=== PATIENT | female | born 1940 | race Caucasian/White ===

== ENCOUNTER 2019-02-26 16:05 | Inpatient (IN) ==
[2019-02-26] MEDS ORDERED: MIDAZOLAM HCL 1 MG/ML 2ML VIAL ONE (16:23)
[2019-02-26] MEDS ORDERED: fentaNYL citrate 100 MCG/2 ML VIAL ONE (16:23)
[2019-02-26] MEDS ORDERED: NITROGLYCERIN/D5W 100MCG/ML 20ML SYR ONE (16:25)
[2019-02-26] MEDS ORDERED: NiCARDipine HCL INJ 2.5 MG/ML 10 ML AMP ONE (16:25)
[2019-02-26] MEDS ORDERED: HEPARIN (PORCINE) 1000 UNIT/ML 10 ML (CATH LAB USE ONLY) ONE (16:25)
--- NOTE | 2019-02-26 17:02 | Emergency Department Note ---
Entered by Anitha Kimble acting as a scribe for Patricio King DO History of Present Illness General Chief complaint: Cardiac Assessment Source: patient and EMS Mode of arrival: EMS Limitations: no limitations History of Present Illness Provider complaint: Cardiac assessment Onset (ago): hour(s) (around 1500 today) Location: upper extremity (arm) and left Radiation: non-radiation Pain Consistency: + other (episode) Current Pain Intensity: 5 Quality: + other (cardiac assessment, pain) Associated symptoms: + nausea/vomiting (positive nausea, negative vomiting); no chest pain, no diaphoresis and no shortness of breath Treatments prior to arrival: aspirin (4 doses) and other (2 doses of sublingual nitroglycerin) The patient is a 70 year old female with a history of diabetes and hypertension who presents to the Emergency Room with complaints of an episode of a cardiac assessment starting today around 1500. Per EMS, the patient began experiencing left arm pain while she was resting, so she called EMS. EMS states that the patient received 4 doses of aspirin and 2 doses of sublingual nitroglycerin and was placed on 4L O2 en route. The patient currently rates her arm pain a 5/10. She also complains of some nausea earlier today, but she denies any shortness of breath, chest pain, diaphoresis, and vomiting. She further denies any recent illnesses. The patient reports no history of MIs, cardiac catheterizations, and stress tests. She notes that she is normally ambulatory and active at baseline. Home Medications Home Medications Medication Instructions Recorded Confirmed Type acetaminophen [Mapap 650 mg PO Q4H #60 tab 11/11/18 Rx (acetaminophen)] apixaban [Eliquis] See Rx Instructions .ROUTE 11/11/18 Rx .COMPLEX #60 tab insulin aspart U-100 [Novolog 1 units SC ACHS #15 ml 11/11/18 Rx Flexpen U-100 Insulin] insulin glargine [Lantus Solostar 0 unit SC BID #10 units 11/11/18 Rx U-100 Insulin] lisinopril [Zestril] 5 mg PO QAM #30 tab 11/11/18 Rx oxycodone 5 mg PO Q8H PRN #20 cap 11/11/18 Rx Allergies Allergy/AdvReac Type Severity Reaction Status Date / Time Penicillins Allergy Unknown Unverified 11/05/18 14:59 Past Med/Surg History Medical History Diabetes (Chronic) Hypertension (Chronic) Family History Other Family history non-contributory Social History Preferred Language: Lithuanian Communication Ability: Effective General Expeditor Required: No Beliefs That Will Affect Care: None marital status: Current Living Situation: Spouse Other Information That Helps Us Care for You: No Feels Safe at Home: Yes Safety Concerns: Feels Safe At This Time Smoking Status: Former smoker Second Hand Exposure: No Hx Alcohol Use: No Hx Substance Use: No Review of Systems See HPI for pertinent positives & negatives. and A total of 10 systems reviewed and were otherwise negative Physical Exam Vital Signs Vital Signs - 24 hr 02/26/19 16:15 02/26/19 17:40 02/26/19 17:45 Temperature 37.3 C 36.3 C L Temperature Source Oral Sepsis Recent Fever Within 48 Hours No Sepsis Action Taken by Nursing No Action Required Pulse Rate 118 H 103 H 54 L Pulse Rate [Right Radial] Pulse Rate from SpO2 Sensor 103 H 98 H Pulse Strength [Right Radial] Respiratory Rate 20 16 12 Respiratory Effort / Characteristics Non-Labored Respiratory Depth Normal Respiratory Pattern Blood Pressure 141/107 H 128/87 Blood Pressure [Left Arm] Blood Pressure Mean 118 100 Blood Pressure Mean [Left Arm] Blood Pressure Position [Left Arm] Pulse Oximetry 93 93 95 Oxygen Delivery Method Room Air 02/26/19 17:47 02/26/19 17:57 02/26/19 17:59 Temperature 36.3 C L Temperature Source Oral Sepsis Recent Fever Within 48 Hours Sepsis Action Taken by Nursing Pulse Rate 107 H Pulse Rate [Right Radial] 101 H Pulse Rate from SpO2 Sensor 102 H Pulse Strength [Right Radial] Normal Respiratory Rate 14 14 Respiratory Effort / Characteristics Non-Labored Spontaneous Non-Labored Spontaneous Respiratory Depth Normal Normal Respiratory Pattern Regular Regular Blood Pressure 122/87 Blood Pressure [Left Arm] 128/87 Blood Pressure Mean 98 Blood Pressure Mean [Left Arm] 100 Blood Pressure Position [Left Arm] Lying Pulse Oximetry 94 92 Oxygen Delivery Method Room Air 02/26/19 18:00 02/26/19 18:04 Temperature Temperature Source Sepsis Recent Fever Within 48 Hours Sepsis Action Taken by Nursing Pulse Rate 102 H Pulse Rate [Right Radial] Pulse Rate from SpO2 Sensor 102 H Pulse Strength [Right Radial] Respiratory Rate 18 Respiratory Effort / Characteristics Respiratory Depth Respiratory Pattern Blood Pressure 128/85 Blood Pressure [Left Arm] Blood Pressure Mean 99 Blood Pressure Mean [Left Arm] Blood Pressure Position [Left Arm] Pulse Oximetry 94 Oxygen Delivery Method Room Air CONSTITUTIONAL/VITAL SIGNS: Reviewed / noted above. GENERAL: Non-toxic in appearance. INTEGUMENTARY: Warm, dry, and [place]. HEAD: Normocephalic. EYES: without scleral icterus or trauma. ENT/OROPHARYNX: clear and moist. LYMPHADENOPATHY/NECK: Is supple without lymphadenopathy or meningismus. RESPIRATORY: Lungs clear and equal. CARDIOVASCULAR: Regular rate and rhythm. GI/ABDOMEN: Soft and nontender. No organomegaly or pulsatile mass. No rebound or guarding. Normal bowel sounds. EXTREMITIES: Warm and well perfused. BACK: No CVA tenderness. NEUROLOGICAL: Intact without focal deficits. PSYCHIATRIC: normal affect. MUSCULOSKELETAL: Normally developed with good muscle tone. Course 1609: The patient was evaluated in room A11B, and a complete history and physical examination were performed. 1620: The patient was taken to the cardiac catheterization technologist at this time. I reviewed the patient's case with Dr. Bearden - Cardiology, [facility]. Dr. Bearden will evaluate the patient for further management. Consultations Consultation #1: I reviewed the patient's case with Dr. Bearden - Cardiology, [facility]. Dr. Bearden will evaluate the patient for further management. Time: 16:20 Administered Medications Discontinued Medications Clopidogrel Bisulfate (Plavix) Confirm Administered Dose 600 mg .ROUTE .STK-MED ONE Stop: 02/26/19 17:10 Last Admin: 02/26/19 17:14 Dose: 600 mg Documented by: [id number] Fentanyl Citrate (Fentanyl Citrate) Confirm Administered Dose 100 mcg .ROUTE .STK-MED ONE Stop: 02/26/19 16:24 Last Increment: 02/26/19 17:13 Dose: 25 mcg Documented by: [id number] Heparin Sodium (Porcine) (Heparin Iv Bolus ([facility] Use Only)) Confirm Administered Dose 10,000 units .ROUTE .STK-MED ONE Stop: 02/26/19 16:26 Last Admin: 02/26/19 17:13 Dose: 10,000 units Documented by: [id number] Midazolam HCl (Versed) Confirm Administered Dose 2 mg .ROUTE .STK-MED ONE Stop: 02/26/19 16:24 Last Increment: 02/26/19 17:13 Dose: 1 mg Documented by: [id number] Nicardipine HCl (Cardene) Confirm Administered Dose 25 mg .ROUTE .STK-MED ONE Stop: 02/26/19 16:26 Last Admin: 02/26/19 16:54 Dose: 25 mg Documented by: [id number] Nitroglycerin/Dextrose (Nitroglycerin/D5w 100 Mcg/Ml 20ml Syringe) Confirm Administered Dose 2,000 mcg .ROUTE .STK-MED ONE Stop: 02/26/19 16:26 Last Admin: 02/26/19 16:54 Dose: 2,000 mcg Documented by: [id number] Medical Decision Making Differential Diagnosis Differential diagnosis: Etiologies such as cardiac ischemia, aortic dissection, pulmonary embolism, pneumonia, pneumothorax, musculoskeletal, infections, pericarditis, myocarditis, esophageal rupture, gastrointestinal, as well as others were entertained. Medical Records Attestation: I reviewed the patient's medical records. Home Medications Current Medication List: was personally reviewed by me Laboratory Data Result diagrams: 02/26/19 15:38 02/26/19 15:38 Lab Results 02/26/19 Range/Units 15:38 WBC 9.91 (4.8-10.8) K/uL RBC 5.06 (4.2-5.4) M/uL Hgb 15.1 (12.0-16.0) g/dL Hct 43.2 (37-47) % MCV 85.4 (80-100) fL MCH 29.8 (25-34) pg MCHC 35.0 (32-36) g/dL RDW Std Deviation 40.6 (36.4-46.3) fL RDW Coeff of Parviz 13.2 (11.5-14.5) % Plt Count 275 (130-400) K/uL MPV 9.8 (7.4-10.4) fL Neutrophils % (Manual) 36.8 % Lymphocytes % (Manual) 42.2 % Reactive Lymphs % (Man) 14.9 % Monocytes % (Manual) 3.5 % Eosinophils % (Manual) 2.6 % Neutrophils # (Manual) 3.65 (1.4-6.5) K/uL Total Absolute Neuts 3.65 (1.4-6.5) K/uL Lymphocytes # (Manual) 4.18 H (1.2-3.4) K/uL Reactive Lymphs # 1.48 K/uL Total Abs Lymphocytes 5.66 H (1.2-3.4) K/uL Monocytes # (Manual) 0.35 (0.11-0.59) K/uL Eosinophils # (Manual) 0.26 (0-0.5) K/uL ECG Data Attestation: I personally reviewed and interpreted this ECG as follows: Indication: other (cardiac assessment) Rate (beats per minute): 114 Rhythm: sinus tachycardia Findings: + PVC and + ST elevation (anterior leads) Blood Pressure Blood Pressure Findings: Elevated blood pressure Blood Pressure Disposition: further management by hospitalist MDM Narrative This is a 78-year-old female who presents to the ED with a chief complaint of left arm pain. The patient states that started about 2 hours prior to arrival. EMS contacted us about 25 minutes from the hospital and gave us the report. The patient's EKG prehospital reveals what appears to be an anterior ST elevation SC. Code heart alert was called prior to the patient's arrival. Aerospace Stress Engineer, Dr. Bearden was present on the patient's arrival. The patient has a repeat twelve-lead EKG here showing acute ST elevation anterior wall SC. The patient was given aspirin and nitro prehospital. She was taken to the [facility]. She was stable during her stay. Her exam was unremarkable. Impression & Plan Acute anterior wall SC Discharge Plan Visit Data *Final* Discharge Date/Time: 02/26/19 16:21 Chief Complaint: Cardiac Assessment ED Provider: Patricio King Discharge Problem: Acute anterior wall SC Patient Disposition: Admitted As Inpatient Discharge Instructions Interventions: ED Discharge Assessment Last Done: 02/26/19 16:21 The scribe's documentation has been prepared under my direction and personally reviewed by me in its entirety. I confirm that the note above accurately reflects all work, treatment, procedures, and medical decision making performed by me.
[2019-02-26] MEDS ORDERED: CLOPIDOGREL BISULFATE 300 MG TAB ONE (17:09)
[2019-02-26 17:15] LABS: Hematocrit (blood only) 43.2 % (37-47); Hemoglobin 15.1 g/dL (12.0-16.0); Mean Corpuscular Volume 85.4 fL (80-100); Mean Platelet Volume 9.8 fL (7.4-10.4); Platelet Count 275 K/uL (130-400); RDW Coefficient of Variation 13.2 % (11.5-14.5); RDW Standard Deviation 40.6 fL (36.4-46.3); Red Blood Count 5.06 M/uL (4.2-5.4); White Blood Count 9.91 K/uL (4.8-10.8)
[2019-02-26] MEDS ORDERED: ICU PROTOCOL FOR HYPERGLYCEMIA PRN (17:21)
[2019-02-26] MEDS ORDERED: ONDANSETRON INJ 2 MG/ML 2 ML VIAL IV PRN (17:23)
[2019-02-26] MEDS ORDERED: ACETAMINOPHEN 325 MG TAB PO PRN (17:23)
--- NOTE | 2019-02-26 17:33 | Cardiology Consultation ---
Date of Consultation February 26, 2019 Assessment & Plan (1) ACS (acute coronary syndrome): Presentation concerning for acute OR and recommend proceeding with emergent cardiac catheterization and likely primary PCI. No apparent contraindications to procedure. Discussed risks, benefits, alternatives of procedure with patient and they are willing to proceed. Given aspirin, nitro glycerin in route. Further recommendations pending findings of coronary angiography. History of Present Illness Attending Physician: Brigido Bearden MD History of Present Illness Ms. 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 EKG obtained in route concerning for an acute OR and a heart alert activated from the field. Upon arrival she endorsed 5 out of 10 new arm pain which occurred at rest. Repeat EKG confirmed anterolateral ST elevations and was taken emergently to cardiac catheterization lab. Allergies Allergy/AdvReac Type Severity Reaction Status Date / Time Penicillins Allergy Unknown Unverified 11/05/18 14:59 Home Medications Home Medications Medication Instructions Recorded Confirmed Type acetaminophen [Mapap 650 mg PO Q4H #60 tab 11/11/18 Rx (acetaminophen)] apixaban [Eliquis] See Rx Instructions .ROUTE 11/11/18 Rx .COMPLEX #60 tab insulin aspart U-100 [Novolog 1 units SC ACHS #15 ml 11/11/18 Rx Flexpen U-100 Insulin] insulin glargine [Lantus Solostar 0 unit SC BID #10 units 11/11/18 Rx U-100 Insulin] lisinopril [Zestril] 5 mg PO QAM #30 tab 11/11/18 Rx oxycodone 5 mg PO Q8H PRN #20 cap 11/11/18 Rx Patient History Medical History Diabetes (Chronic) Hypertension (Chronic) Family History Other Family history non-contributory Social History Preferred Language: Belarusian Communication Ability: Effective Beliefs That Will Affect Care: Yazidi Yazidi Beliefs: Adventist marital status: Current Living Situation: Spouse Feels Safe at Home: Yes Smoking Status: Never smoker Second Hand Exposure: No Hx Alcohol Use: No Hx Substance Use: No Review of Systems Review of Systems: All systems reviewed & are unremarkable except as noted in HPI & below Physical Exam Physical Exam: General: Comfortable, no acute distress Eyes: Sclerae anicteric, extraocular movements intact Lungs: Clear to auscultation bilaterally, no rhonchi or wheezes Cardiac: Regular, tachycardic no murmurs, rubs or gallops. Vascular: 2+ radial, DP and PT pulses. Abdomen: Soft, nontender, nondistended, positive bowel sounds. Extremities: Well perfused, no peripheral edema Skin: No rashes or lesions. Neuro: Nonfocal Psych: Alert orient x3, normal affect and mood Results & Data Vital Signs (Past 12 Hours) Vital Signs Temp Pulse Resp BP Pulse Ox 02/26/19 16:15 37.3 C 118 H 20 141/107 H 93
--- NOTE | 2019-02-26 17:34 | Post Anesthesia Assessment ---
Date of Service February 26, 2019 Post Sedation Assessment Vital Signs Temp Pulse Resp BP Pulse Ox 02/26/19 16:15 37.3 C 118 H 20 141/107 H 93 Recovery Score Activity: Moves 4 extremities Respiration: Deep Breath/Cough Circulation: +/-20% PreAnes Value Consciousness: Fully Awake Oxygen Saturation: O2 needed for >90% Discharge Sedation Level of Care: Fast Track Phase II Post Sedation Plan On clinical assessment, the patient appears to have tolerated the sedation without complications. Patient is recovering as anticipated. Patient will continue to be monitored by nursing and may be discharged when sedation discharge criteria are met per below protocol. Upon Completions of procedure and additional 15 minutes continue every 5 minute vital signs and the P.A.R. score; then discharge to a Phase I or Fast Track to Phase II per the following guidelines: * Discharge Patient to appropriate Phase II area if PAR is 8 or greater or return to pre- procedure baseline. The post - procedure orders will be as directed. * If PAR score is less than 8 or not return to pre-procedure baseline then patient will follow Phase I monitoring till PAR is reached for Phase II. The Phase I may be done in procedure room or may call to secure a Phase I area. * If naloxone or flumazenil are used for reversal, hold in Phase I for continued monitoring from when last reversal dose was given for a minimum of 60 minutes or longer pending the nurse and/or physician discretion of patient condition before discharge to Phase II. Please call the Sedation Physician to re-evaluate and complete post-note for discharge to Phase II area. Do NOT discharge from procedure sedation or Phase 1 until post- sedation evaluation note is complete by procedure /sedation MD Sedation Discharge Instructions to be given to the patient at discharge to home.
--- NOTE | 2019-02-26 17:34 | Pre Anesthesia Assessment ---
Date of Service February 26, 2019 Pre Sedation Assessment Vital Signs Temp Pulse Resp BP Pulse Ox 02/26/19 16:15 37.3 C 118 H 20 141/107 H 93 Cardiovascular RRR, no murmur, no edema Respiratory normal respiratory effort, lungs clear to auscultation Pre-Sedation Airway Assessment Smoking Status: Never smoker Hx Sleep Apnea: No Hx Difficult Intubation: No Short, Thick Neck: No Thyromental Distance: > or= 3.5 Finger Breadths Oral Cavity: + WNL Mallampati Class: III Procedure Planning Contraindications for Sedation: none Current Medications Reviewed: Yes Notes The planned sedation has been discussed with the patient. Informed Consent was obtained. I have identified the patient, determined the appropriateness of sedation and have assessed the patient immediately prior to the procedure. All medicine(s) and interventions are by my order.
--- NOTE | 2019-02-26 17:37 | Cardiac Catheterization ---
Cardiac Cath Procedure Full Procedure Date February 26, 2019 Pre-Procedure Diagnosis Pre-Procedure Diagnosis: Acute Coronary Syndrome AUC Score AUC Score: 9 Post-Procedure Diagnosis Post-Procedure Diagnosis: Severe CAD, Successful PCI and Normal Intracardiac Pressures Procedure(s) Performed Procedure(s) Performed: Coronary Angiography, Left Heart Cath, PTCA and Drug Eluting Stent Community Resource Officer Brigido Bearden MD Display Designer(s) Bernadette Estimated Blood Loss Estimated Blood Loss: 10 Medication(s) Medication(s): Clopidogrel, Fentanyl, Heparin, Lidocaine 1%, Nicardipine, Nitroglycerin and Versed Summary of Findings Indication: STEMI/Heart Alert Access: 6 Fr right radial artery Catheters: [place], EBU 3.0 guide Findings: LM -moderate caliber, luminal irregularities LAD -small caliber vessel, diffuse 40% proximal, 95% acute appearing mid segment stenosis with ANTONIO II flow distally. Distal LAD small with diffuse disease and with multiple severe focal areas (90+%) before wraps around apex. Moderate caliber first diagonal with mild diffuse disease. Circumflex -moderate caliber, 40% proximal stenosis, 30 to 40% mid segment stenosis, luminal irregularities in large bifurcating OM 2 RCA -dominant, moderate caliber, 40 to 50% ostial stenosis, distal luminal irregularities LVEDP -14 -- PCI -- Antithrombotic therapy: Heparin, clopidogrel Procedure: Left main cannulated with EBU 3.0 guide Supervisor [employer] 50 wire passed across lesion into distal vessel Mid LAD lesion predilated with 2.0 compliant balloon. Distal LAD gently dilated with 2.0 balloon Dilated lesion stented with 2.5 x 26 mm Nash drug-eluting stent Stent post-dilated with 2.5 noncompliant balloon IC vasodilators administered for spasm Post procedure ANTONIO 3 flow, stent well expanded with minimal residual stenosis. Most apical portion of LAD occluded but vessel very small and no further intervention undertaken. Arterial Closure: TR band Summary: 1. Anterior STEMI/95% mid LAD stenosis 2. Mild to moderate non-culprit coronary artery disease 40% ostial RCA 30-40% proximal, mid circumflex disease 3. Normal intracardiac filling pressure 4. Successful PCI of mid LAD with single drug-eluting stent (2.5 x 26 m Nash). Recommendations: Admit to ICU for continued monitoring Loaded with clopidogrel 600 mg in label fuser tender Unclear if still taking anticoagulation for pulmonary embolism. If still requires anticoagulation would continue aspirin, clopidogrel and Eliquis for 1 week and then drop aspirin and continue Eliquis/clopidogrel for 1 year If does not require anticoagulation continue doing to platelet therapy with aspirin, clopidogrel for 1 year Trend troponins until peak, Check Echo Uptitrate beta-mya/MANI as BP allows High-dose statin Consult cardiac Rehab Hemodynamics Rest Ao:: 121/75/96 Final Ao: 115//91 LV: 113// Recommendations Recommendations: PCI without planned CABG Specimens Specimens: None Radiation Exposure (mGy) 2052 Contrast (mls) 120 Fluids (cc crystalloids) Fluids (cc crystalloids): 80 Drains Drains: none Anesthesia moderate Procedural Complication(s) None Disposition ICU ACC Data: Cash Applications Clerk Cardiac Status Clinical evaluation leading to the procedure CAD Presenation: STEMI Anginal Classification: CCS IV Heart Failure: No Cardiogenic Shock within 24 Hours: No Cardiac Arrest within 24 Hours: No Imaging Studies Past 6 Months: Yes Stress Studies Past 6 Months: No Diagnostic Physicians Name: Brigido Bearden MD Status: Emergency Closure Device Percutaneous Entry Location: Radial Closure Device: Radial Band Recommendations: PCI without planned CABG PCI Indication: Immediate PCI for STEMI First Noted: First EKG Lesion Segment Name: mid LAD Culprit Artery: Yes Stenosis Prior to Rx (%): 95 Chronic Total Occlusion: No IVUS: No FFR: No Pre-Procedure ANTONIO Flow: 2 Previously Treated Lesion: No Lesion Complexity: Non-High/Non-C Lesion Length (mm): 23 Thrombus Present: Yes Bifurcation Lesion: No Guidewire Across Lesion: Stenosis Post-Procedure (%): 0 Post-Procedure ANTONIO Flow: 3 Devices(s) Deployed: Yes Yes Intraprocedure Events Significant Disection: No Perforation: No
[2019-02-26 18:10] LABS: ALC (manual) 5.66 K/uL (1.2-3.4); Eosinophils # (manual) 0.26 K/uL (0-0.5); Eosinophils % (manual) 2.6 %; Lymphocytes # (manual) 4.18 K/uL (1.2-3.4); Lymphocytes % (manual) 42.2 %; Monocytes # (manual) 0.35 K/uL (0.11-0.59); Monocytes % (manual) 3.5 %; Neutrophils % (manual) 36.8 %; Reactive Lymphocytes # (manual) 1.48 K/uL
[2019-02-26 18:14] LABS: Albumin Globulin Ratio 0.9 (0.9-2); Albumin Level 3.7 gm/dl (3.4-5.0); BUN Creatinine Ratio 12.5 (10-20); Bilirubin,Total 0.9 mg/dl (0.2-1); Calcium 9.7 mg/dl (8.5-10.1); Creatinine Clr Calc Pharmacy 53.6 ml/min; Est GFR (African American) 80.6; Est GFR (Non-African American) 69.6; Globulin 4.3 gm/dl (2.5-4.0); Potassium 4.2 mmol/L (3.5-5.1); Troponin I 0.215 ng/ml (0-0.045)
[2019-02-26] MEDS ORDERED: SODIUM CHLORIDE 0.9% 1000ML 1,000 ML IV SCH (18:15)
--- NOTE | 2019-02-26 18:15 | XRay Report ---
XR chest 1V portable CLINICAL HISTORY: Chest Pain dyspnea COMPARISON STUDY: 11/05/2018 FINDINGS: Diminished inspiratory volumes. Crowding of the basilar lung markings. Nipple lungs are stephani ar. IMPRESSION: No acute process. The above report was generated using voice recognition software. It may contain grammatical, syntax or spelling errors. Electronically signed by: Aly Martinez M.D. 02/26/2019 6:13 PM
[2019-02-26 18:25] LABS: Beta-Hydroxybutyrate 2.97 mg/dl (0.2-2.81)
--- NOTE | 2019-02-26 18:49 | Critical Care Consultation ---
Date of Consultation February 26, 2019 Assessment & Plan (1) ACS (acute coronary syndrome): Reason Critically Ill: Heike Khalil is a 78-year-old female with past medical history of uncontrolled insulin dependent diabetes and hypertension presented to the ED for arm pain with top+ and ECG revealing for STEMI now s/p PCI with KALA x1 to LAD. Neuro - CAM ICU: Negative Sedation: None Analgesia: Acetaminophen 650 mg p.o. every 4 hours as needed Cardiac - STEMI secondary to 95% LAD occlusion S/P KALA to mid LAD 40% ostial RCA and 30 to 40% proximal mid circumflex disease also noted with normal filling pressures. Per Dr. Bearden she was also noted to have some small vessel distal disease consistent with diabetes, and may have some additional chest pain in the immediate period after the procedure but overall did well without complication. Cardiac monitoring overnight Trend troponins overnight Echocardiogram in the morning Dual antiplatelet therapy, aspirin and Plavix 75 mg Respiratory - Stable, no respiratory disease. Satting well on room air GI - Heart healthy, diabetic diet RENAL/LYTES - No significant electrolyte derangements See glucose management as below No signs of acute kidney injury, creatinine 0.81 - No concerns at this time ENDO - Type 2 diabetes mellitus, glucose 144-410 over admit, poorly controlled last A1c 14.1 Insulin-dependent at home. On glargine 40+ aspart 6 units with meals at home. Relatively noncompliant per family. Insulin GTT tonight Resume lisinopril tomorrow, blood pressure control adequate HEME - Stable hemoglobin, no clinical signs of bleeding ID - No signs of infection at this time INTEGUMENTARY - No skin concerns, routine ulcer prophylaxis LINES/IV ACCESS - PIVs intact. DVT PROPHYLAXIS - SCDs Heparin 5000u SQ Q8H Thank you for allowing us to be part of this patient's care. Please refer to Dr. Hoang's documentation for any further recommendations. Supervising Physician Co-Signing Physician Notes Dr. Jack was resident physician during care of patient. I separately evaluated patient for plaza portions of the history and the exam. I was present during the critical portion of medical decision making, and I discussed the case with the resident. I generally agree with the findings and plan. Status post cardiac cath with drug-eluting stent to LAD. Patient with extremely poorly controlled diabetes requiring insulin infusion. I have personally spent 35 minutes of critical care time in the direct management of this patient. This is a life/limb threatening event. This includes time spent evaluating patient, direct bedside care, chart review, placing orders, interpretation of diagnostic studies, discussion with consultants, patient, and/or family members regarding treatment decisions, as well as other required patient management activities. This time is exclusive of all separately billable procedures, and teaching time and separate from and in addition to any other critical care service time. History of Present Illness Reason for Consultation: with left arm pain, nausea at rest without chest pain or shortness of breath. Her chest pain had begun early in the afternoon, she received aspirin and nitroglycerin by EMS and was transported to [facility] for care. She had no prior history of acute coronary syndrome, has not had cardiac intervention before, and is not limited by any cardiac problems. She has not had any chest pain at rest or crescendo angina in the past. In the emergency department her troponin was elevated to 0.[address] elevation in V2, V3, V4, V5. She was taken to the [facility] Out Techn[facility] and was found to have a 95% occlusion of her mid LAD which was treated with a single drug-eluting stent. She has been admitted to the ICU for monitoring. Discussed her case with her grandchildren. Per her family she lives at home and [place] with her . She gets around well, has not had any falls, and they would prefer for her to return there. They do have faculty getting her to take her medications, and will occasionally tell them "I will take my meds when I damn well please "but otherwise is functional, has no problems with ambulation, and is able to complete her ADLs. Attending Physician: Saurabh Lazo MD Allergies Allergy/AdvReac Type Severity Reaction Status Date / Time Penicillins Allergy Unknown Unverified 11/05/18 14:59 Home Medications Home Medications Medication Instructions Recorded Confirmed Type acetaminophen [Mapap 650 mg PO Q4H #60 tab 11/11/18 Rx (acetaminophen)] apixaban [Eliquis] See Rx Instructions .ROUTE 11/11/18 Rx .COMPLEX #60 tab insulin aspart U-100 [Novolog 1 units SC ACHS #15 ml 11/11/18 Rx Flexpen U-100 Insulin] insulin glargine [Lantus Solostar 0 unit SC BID #10 units 11/11/18 Rx U-100 Insulin] lisinopril [Zestril] 5 mg PO QAM #30 tab 11/11/18 Rx oxycodone 5 mg PO Q8H PRN #20 cap 11/11/18 Rx Patient History Medical History Diabetes (Chronic) Hypertension (Chronic) Family History Other Family history non-contributory Social History Preferred Language: Amharic Communication Ability: Effective Lab Associate Required: No Beliefs That Will Affect Care: None marital status: Current Living Situation: Spouse Other Information That Helps Us Care for You: No Feels Safe at Home: Yes Safety Concerns: Feels Safe At This Time Smoking Status: Former smoker Second Hand Exposure: No Hx Alcohol Use: No Hx Substance Use: No Physical Exam Physical Exam: General: Alert, oriented to name. Oriented to place. Not oriented to year off by +1. Not oriented to month off by -1. NAD. Cooperative. Answers questions appropriately Skin: Dry skin on legs bilaterally, no pitting edema present. Air compression band present on right wrist, no signs of bleeding. Capillary refill in fingertips less than 2 seconds. HEENT: Atraumatic, normocephalic. Pulm: CTAB A&P. -wheezes, -rales, -rhonchi. Symmetrical chest rise. No increase work of breathing. No respiratory distress. Cardiac: RRR, -mrg. Radial pulses intact and symmetrical. Abdominal: Nontender, nondistended, soft. BS present. Results & Data Vital Signs (Past 12 Hours) Vital Signs Temp Pulse Pulse Resp BP BP Pulse Ox 02/26/19 18:15 100 H 14 113/76 93 02/26/19 18:10 36.4 C L 98 H 16 113/76 94 02/26/19 18:00 102 H 18 128/85 94 02/26/19 17:57 107 H 14 122/87 92 02/26/19 17:47 36.3 C L 101 H 14 128/87 94 02/26/19 17:45 54 L 12 95 02/26/19 17:40 36.3 C L 103 H 16 128/87 93 02/26/19 16:15 37.3 C 118 H 20 141/107 H 93 Resident Activity Tracking Resident Involvement: Resident Care Provided Care Provided: Adult [facility] Medicine
[2019-02-26] MEDS ORDERED: INSULIN PROTOCOL GOAL RANGE ONE (19:11)
[2019-02-26] MEDS ORDERED: SODIUM CHLORIDE 0.65% NA SOLN 45 ML (OCEAN) ONE (19:11)
--- NOTE | 2019-02-26 19:40 | History & Physical Report ---
Date of Service February 26, 2019 Assessment & Plan (1) ACS (acute coronary syndrome): 78-year-old female was admitted on 26 Feb 2019 for left arm pain, acute KS, and emergent cath. Anterior STEMI, CAD: Left arm pain and nausea earlier in the day. Never had chest pain. Elevated troponin and diffuse ST elevations on EKG led to an emergent cardiac cath with single KALA to mid-LAD on 09May. Cardiology plan is to continue Eliquis and Plavix, trend troponins, check echocardiogram in a.m., uptitrate beta-mya and MANI inhibitor as blood pressure allows, placed on high-dose statin (Lipitor), and start cardiac rehab. 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 Ongoing medical history: - Hypertension: Managements as per CAD discussion above. - Diabetes: In October 2018 HbA1c was 13.1. --- On insulin glargine and sliding scale insulin. Recheck A1c and lipids in AM. Diabetes education. - Chronic PE: Seen on October 2018 admit. - Compression fracture of thoracic vertebrae: Previous recommendation of Ortho follow-up. - Incidental adrenal adenoma. Code status: Full code. Diet: DM2 diet. DVT prophy: Heparin. PT/OT: Cardiac rehab. Disbo: Admitted to ICU. --- Son asks if case management can help him get a home health nurse for her. He says she has had such help in the past. (2) Acute anterior wall KS: (3) Hypertension: (4) Diabetes: (5) Pulmonary embolism: (6) Compression fracture of thoracic vertebra: (7) Incidental adrenal cortical adenoma: History of Present Illness Primary Care Provider: Ben Paula DO 78-year-old female presented to the emergency department by EMS for left arm pain and nausea earlier on day of admission. She denied concurrent chest pain, diaphoresis, or vomiting. They contacted EMS, at which point she received nitroglycerin and aspirin. Her EKG was consistent with a STEMI and she went for emergent cath. On discussion with patient and her son this evening in the ICU, she says she is resting comfortably and eat a bit of her dinner. She denies any present complaints to include any chest pain, shortness of breath, nausea, wrist pain, or other acute concerns. --- Past medical history includes hypertension, uncontrolled diabetes, chronic PE, compression fracture of the thoracic vertebrae, incidental adrenal adenoma, now status post STEMI and CAD. --- Patient denies any past surgical history. --- Social history includes quitting smoking about 15 years ago (with perhaps 20+ years prior history), denies alcohol use. Lives at home with her . Allergies Allergy/AdvReac Type Severity Reaction Status Date / Time Penicillins Allergy Unknown Unverified 11/05/18 14:59 Home Medications Home Medications Medication Instructions Recorded Confirmed Type acetaminophen [Mapap 650 mg PO Q4H #60 tab 11/11/18 Rx (acetaminophen)] apixaban [Eliquis] See Rx Instructions .ROUTE 11/11/18 Rx .COMPLEX #60 tab insulin aspart U-100 [Novolog 1 units SC ACHS #15 ml 11/11/18 Rx Flexpen U-100 Insulin] insulin glargine [Lantus Solostar 0 unit SC BID #10 units 11/11/18 Rx U-100 Insulin] lisinopril [Zestril] 5 mg PO QAM #30 tab 11/11/18 Rx oxycodone 5 mg PO Q8H PRN #20 cap 11/11/18 Rx Past Med/Surg History Medical History Diabetes (Chronic) Hypertension (Chronic) Family History Other Family history non-contributory Social History Preferred Language: Malagasy Communication Ability: Effective Crane Hooker Required: No Beliefs That Will Affect Care: None marital status: Current Living Situation: Spouse Other Information That Helps Us Care for You: No Feels Safe at Home: Yes Safety Concerns: Feels Safe At This Time Smoking Status: Former smoker Second Hand Exposure: No Hx Alcohol Use: No Hx Substance Use: No Review of Systems Review of Systems: Constitutional: Denies fevers, chills, focal weakness Eyes: Denies any visual loss or diplopia ENT: Denies any ear/nose/throat pain or difficulty speaking or swallowing Respiratory: Denies any dyspnea, cough, hemoptysis Cardiovascular: Denies any chest pain or feeling of edema Gastrointestinal: Denies any abdominal pain, vomiting/diarrhea Musculoskeletal: Denies any acute extremity pains, myalgias, or focal weakness Skin: Denies any known acute rashes or lesions Neuro: Denies any headache, acute focal weakness or numbness, or difficulties with speech or swallow. Physical Exam Physical Exam: GENERAL: Awake, alert, oriented to name and place, comfortable, does not appear in acute distress. HENT: Normocephalic, atraumatic. Oropharynx unremarkable. EYES: Normal conjunctiva. Sclera non-icteric. NECK: Inspection normal. Non-tender. Supple and full ROM. No nuchal rigidity. CARDIAC: +S1S2 RRR, no murmurs. RESPIRATORY: Clear to auscultation. No wheezes or rales. Normal respiratory effort. GI: +BS, soft, non-distended. No tenderness to palpation. No rebound or guarding. No appreciable masses. EXTREMITIES: No pedal edema or calf tenderness. Moving all extremities naturally and easily. Right wrist compression band s/p cath. Very dry leg skin. NEURO: No gross neuro deficits. Results & Data Vital Signs (Past 12 Hours) Vital Signs Temp Pulse Pulse Resp BP BP Pulse Ox 02/26/19 18:45 110 H 15 93/79 L 93 02/26/19 18:30 103 H 22 116/78 94 02/26/19 18:15 100 H 14 113/76 93 02/26/19 18:10 36.4 C L 98 H 16 113/76 94 02/26/19 18:00 102 H 18 128/85 94 02/26/19 17:57 107 H 14 122/87 92 02/26/19 17:47 36.3 C L 101 H 14 128/87 94 02/26/19 17:45 54 L 12 95 02/26/19 17:40 36.3 C L 103 H 16 128/87 93 02/26/19 16:15 37.3 C 118 H 20 141/107 H 93 Laboratory Results 02/26/19 02/26/19 02/26/19 Range/Units 18:27 18:26 18:00 WBC (4.8-10.8) K/uL RBC (4.2-5.4) M/uL Hgb (12.0-16.0) g/dL Hct (37-47) % MCV (80-100) fL MCH (25-34) pg MCHC (32-36) g/dL RDW Std Deviation (36.4-46.3) fL RDW Coeff of Parviz (11.5-14.5) % Plt Count (130-400) K/uL MPV (7.4-10.4) fL Neutrophils % (Manual) % Lymphocytes % (Manual) % Reactive Lymphs % (Man) % Monocytes % (Manual) % Eosinophils % (Manual) % Neutrophils # (Manual) (1.4-6.5) K/uL Total Absolute Neuts (1.4-6.5) K/uL Lymphocytes # (Manual) (1.2-3.4) K/uL Reactive Lymphs # K/uL Total Abs Lymphocytes (1.2-3.4) K/uL Monocytes # (Manual) (0.11-0.59) K/uL Eosinophils # (Manual) (0-0.5) K/uL Blood Smear Review Sodium (136-145) mmol/L Potassium (3.5-5.1) mmol/L Chloride (98-107) mmol/L Carbon Dioxide (21-32) mmol/L Anion Gap (3-11) BUN (7-18) mg/dl Creatinine (0.6-1.2) mg/dl Est Cr Clr Drug Dosing ml/min Est GFR ( Amer) Est GFR (Non-Af Amer) BUN/Creatinine Ratio (10-20) Glucose (70-99) mg/dl POC Glucose 410 H* 371 H* (70-99) Calcium (8.5-10.1) mg/dl Total Bilirubin (0.2-1) mg/dl AST (15-37) U/L ALT (12-78) U/L Alkaline Phosphatase (45-117) U/L Troponin I (0-0.045) ng/ml Total Protein (6.4-8.2) gm/dl Albumin (3.4-5.0) gm/dl Globulin (2.5-4.0) gm/dl Albumin/Globulin Ratio (0.9-2) Beta-Hydroxybutyric Acd (0.2-2.81) mg/dl Nasal Screen MRSA (PCR) Pending 02/26/19 02/26/19 Range/Units 15:38 15:38 WBC 9.91 (4.8-10.8) K/uL RBC 5.06 (4.2-5.4) M/uL Hgb 15.1 (12.0-16.0) g/dL Hct 43.2 (37-47) % MCV 85.4 (80-100) fL MCH 29.8 (25-34) pg MCHC 35.0 (32-36) g/dL RDW Std Deviation 40.6 (36.4-46.3) fL RDW Coeff of Parviz 13.2 (11.5-14.5) % Plt Count 275 (130-400) K/uL MPV 9.8 (7.4-10.4) fL Neutrophils % (Manual) 36.8 % Lymphocytes % (Manual) 42.2 % Reactive Lymphs % (Man) 14.9 % Monocytes % (Manual) 3.5 % Eosinophils % (Manual) 2.6 % Neutrophils # (Manual) 3.65 (1.4-6.5) K/uL Total Absolute Neuts 3.65 (1.4-6.5) K/uL Lymphocytes # (Manual) 4.18 H (1.2-3.4) K/uL Reactive Lymphs # 1.48 K/uL Total Abs Lymphocytes 5.66 H (1.2-3.4) K/uL Monocytes # (Manual) 0.35 (0.11-0.59) K/uL Eosinophils # (Manual) 0.26 (0-0.5) K/uL Blood Smear Review Pending Sodium 137 (136-145) mmol/L Potassium 4.2 (3.5-5.1) mmol/L Chloride 102 (98-107) mmol/L Carbon Dioxide 24 (21-32) mmol/L Anion Gap 10.0 (3-11) BUN 10 (7-18) mg/dl Creatinine 0.81 (0.6-1.2) mg/dl Est Cr Clr Drug Dosing 53.6 ml/min Est GFR ( Amer) 80.6 Est GFR (Non-Af Amer) 69.6 BUN/Creatinine Ratio 12.5 (10-20) Glucose 366 H* (70-99) mg/dl POC Glucose (70-99) Calcium 9.7 (8.5-10.1) mg/dl Total Bilirubin 0.9 (0.2-1) mg/dl AST 22 (15-37) U/L ALT 27 (12-78) U/L Alkaline Phosphatase 116 (45-117) U/L Troponin I 0.215 H* (0-0.045) ng/ml Total Protein 8.0 (6.4-8.2) gm/dl Albumin 3.7 (3.4-5.0) gm/dl Globulin 4.3 H (2.5-4.0) gm/dl Albumin/Globulin Ratio 0.9 (0.9-2) Beta-Hydroxybutyric Acd 2.97 H (0.2-2.81) mg/dl Nasal Screen MRSA (PCR) Medications Administered Sodium Chloride (Nss 1000ml) 1,000 mls @ 100 mls/hr IV .Q10H MARI Stop: 02/26/19 23:14 Last Admin: 02/26/19 18:34 Dose: 100 mls/hr Documented by: [id number] Discontinued Medications Clopidogrel Bisulfate (Plavix) Confirm Administered Dose 600 mg .ROUTE .STK-MED ONE Stop: 02/26/19 17:10 Last Admin: 02/26/19 17:14 Dose: 600 mg Documented by: [id number] Fentanyl Citrate (Fentanyl Citrate) Confirm Administered Dose 100 mcg .ROUTE .STK-MED ONE Stop: 02/26/19 16:24 Last Increment: 02/26/19 17:13 Dose: 25 mcg Documented by: [id number] Heparin Sodium (Porcine) (Heparin Iv Bolus (Car Varnisher Use Only)) Confirm Administered Dose 10,000 units .ROUTE .STK-MED ONE Stop: 02/26/19 16:26 Last Admin: 02/26/19 17:13 Dose: 10,000 units Documented by: [id number] Midazolam HCl (Versed) Confirm Administered Dose 2 mg .ROUTE .STK-MED ONE Stop: 02/26/19 16:24 Last Increment: 02/26/19 17:13 Dose: 1 mg Documented by: [id number] Nicardipine HCl (Cardene) Confirm Administered Dose 25 mg .ROUTE .STK-MED ONE Stop: 02/26/19 16:26 Last Admin: 02/26/19 16:54 Dose: 25 mg Documented by: [id number] Nitroglycerin/Dextrose (Nitroglycerin/D5w 100 Mcg/Ml 20ml Syringe) Confirm Administered Dose 2,000 mcg .ROUTE .STK-MED ONE Stop: 02/26/19 16:26 Last Admin: 02/26/19 16:54 Dose: 2,000 mcg Documented by: [id number] Sodium Chloride ([place] Nasal) Confirm Administered Dose 225 sprays .ROUTE .K- MED ONE Stop: 02/26/19 19:12 Last Admin: 02/26/19 19:13 Dose: 225 sprays Documented by: [id number] Code Status & VTE Plan Code Status Full code VTE Prophylaxis Plan VTE Prophylaxis will be ordered: Yes Supervising Physician Co-Signing Physician Notes Patient seen and examined, chart reviewed, case discussed with Dr. Mckeon and I agree with his assessment and plan as documented above. Briefly, patient is a 78yo female with history of HTN, DM, chronic PE presenting with anterior STEMI. She had urgent catheterization performed today which revealed 95% occlusion of the mid-LAD s/p KALA x 1. Patient presently doing well, no complaints. Denies CP. On exam she is a frail, elderly female in NAD HEENT: MMM, neck supple, no JVD Heart: +S1/S2, regular, no m/r/g Lungs: CTA Abd: soft, NT/ND Ext: no edema Labs and images reviewed. Trop=59.1, elevated blood [id number] Assessment/Plan: continue DAPT, Lisinopril. Echo in AM. Continue to monitor troponin Blood sugar control, may need to increase insulin if continues to be elevated Remainder of plan as above Resident Activity Tracking Resident Involvement: Resident Care Provided Care Provided: Adult Hospital Medicine (1) Diabetes Diabetes mellitus complication status: without complication Diabetes mellitus exterminator insulin use: with senior living use Diabetes mellitus type: type 2 Qualified Code(s): E11.9 - Type 2 diabetes mellitus without complications; Z79.4 - [facility] (current) use of insulin (2) Compression fracture of thoracic vertebra Encounter type: initial encounter Fracture type: closed Qualified Code(s): S22.000A - Wedge compression fracture of unspecified thoracic vertebra, initial encounter for closed fracture (3) Pulmonary embolism Acute cor pulmonale presence: without acute cor pulmonale Chronicity: chronic Pulmonary embolism type: unspecified Qualified Code(s): I27.82 - Chronic pul monary embolism (4) Hypertension Hypertension type: essential hypertension Qualified Code(s): I10 - Essential (primary) hypertension
[2019-02-26 19:59] LABS: INR 1.1 (0.9-1.1)
[2019-02-26] MEDS ORDERED: PNEUMOCOCCAL POLYSACCHARIDES 25 MCG/0.5 ML VIAL/SYR IM ONE (20:30)
[2019-02-26] MEDS ORDERED: NovoLIN-R BOLUS FROM BAG IV ONE (20:30)
[2019-02-26] MEDS ORDERED: PNEUMOCOCCAL ADMINISTRATION CHARGE ONE (20:30)
[2019-02-26] MEDS ORDERED: INSULIN REGULAR 250 UNITS in SODIUM CHLORIDE 0.9% 247.5 ML IV SCH (20:30)
[2019-02-26] MEDS: INSULIN ASPART 100 UNITS/ML 3 ML PEN SC SCH (21:39)
[2019-02-26] MEDS: HEPARIN SOD 5,000 UNIT/0.5 ML VIAL SQ SCH (22:28)
[2019-02-27 05:14] LABS: Basophils # (auto) 0.01 K/uL (0-0.2); Basophils % (auto) 0.1 %; Eosinophils # (auto) 0.03 K/uL (0-0.5); Eosinophils % (auto) 0.3 %; Hematocrit (blood only) 39.2 % (37-47); Hemoglobin 14.1 g/dL (12.0-16.0); Immature Granulocytes # (auto) 0.02 K/uL (0.00-0.02); Immature Granulocytes % (auto) 0.2 %; Lymphocytes # (auto) 2.55 K/uL (1.2-3.4); Lymphocytes % (auto) 25.9 %; Mean Corpuscular Volume 83.9 fL (80-100); Mean Platelet Volume 9.2 fL (7.4-10.4); Monocytes # (auto) 0.83 K/uL (0.11-0.59); Monocytes % (auto) 8.4 %; Neutrophils # (auto) 6.39 K/uL (1.4-6.5); Neutrophils % (auto) 65.1 %; Platelet Count 209 K/uL (130-400); RDW Coefficient of Variation 13.3 % (11.5-14.5); RDW Standard Deviation 40.3 fL (36.4-46.3); Red Blood Count 4.67 M/uL (4.2-5.4); White Blood Count 9.83 K/uL (4.8-10.8)
[2019-02-27 05:52] LABS: Troponin I 52.6 ng/ml (0-0.045)
[2019-02-27] MEDS: HEPARIN SOD 5,000 UNIT/0.5 ML VIAL SQ SCH ×2 (06:10→13:38)
--- NOTE | 2019-02-27 07:15 | Critical Care Progress Note ---
Date of Service February 27, 2019 Assessment & Plan (1) ACS (acute coronary syndrome): Reason Critically Ill: Heike Khalil is a 78-year-old female with past medical history of uncontrolled insulin dependent diabetes and hypertension presented to the ED for arm pain with trop+ and ECG revealing for STEMI now s/p PCI with KALA x1 to LAD. Neuro - CAM ICU: Negative Sedation: None Analgesia: Acetaminophen 650 mg p.o. every 4 hours as needed Cardiac - STEMI secondary to 95% LAD occlusion S/P KALA to mid LAD 40% ostial RCA and 30 to 40% proximal mid circumflex disease also noted with normal filling pressures. - Did well overnight - Troponins downtrending - ECHO: LVEF 25-30%, mild pulmonary HTN (PASP 40-45mmHg, RAP 8mmHg). Reduced LVEF and wall motion abnormality new compared to last. Dual antiplatelet therapy, aspirin and Plavix 75 mg - Metoprolol 25mg BID, reduce burder by converting to daily succinate dose on discharge - Lisinopril 2.5mg qAM Respiratory - Stable, no respiratory disease. Satting well on room air GI - Heart healthy, diabetic diet RENAL/LYTES - No significant electrolyte derangements See glucose management as below - No concerns at this time ENDO - Type 2 diabetes mellitus, glucose 100s-low 200s over admit, poorly controlled last A1c 13.1, repeat A1C 11 this visit Insulin-dependent at home. On glargine 40+ aspart 6 units with meals at home. Relatively noncompliant per family. Convert from insulin gtt to subq insulin per [place] today HEME - Stable hemoglobin, no clinical signs of bleeding ID - No signs of infection at this time INTEGUMENTARY - No skin concerns, routine ulcer prophylaxis LINES/IV ACCESS - PIVs intact. DVT PROPHYLAXIS - SCDs Heparin 5000u SQ Q8H Stable for downgrade today Thank you for allowing us to be part of this patient's care. Please refer to Dr. Hoang's documentation for any further recommendations. Supervising Physician Co-Signing Physician Notes Dr. Jack was resident physician during care of patient. I separately evaluated patient for plaza portions of the history and the exam. I was present during the critical portion of medical decision making, and I discussed the case with the resident. I generally agree with the findings and plan. Troponin downtrending, hypertriglyceridemia, LDL cholesterol mildly elevated at 105; most recent A1c pending however patient has extreme hyperglycemia and still on insulin infusion will anticipate transition off insulin infusion today. Formal echo pending however patient has done well and would be stable for downgrade out of ICU. Subjective Heike is a pleasant 70-year-old female seen at bedside now day 2 status post PCI with KALA. She says she feels at her normal healthy baseline. Denies chest pressure, chest pain, shortness of breath today. She reports she has a good appetite and is about the breakfast at time of visit. She denies fatigue or weakness getting up to chair today. Denies headache, denies vision change, no arm pain. No questions or concerns at time of visit Review of Systems Review of Systems: Constitutional: Denies fever, chills, malaise Eyes: Denies double vision, vision change, Cardiovascular: Denies Chest pain, chest pressure, palpitations, extremity swelling Respiratory: Denies shortness of breath, cough, sputum production, difficulty breathing Gastrointestinal: Denies abdominal pain, nausea, vomiting, constipation, diarrhea Genitourinary: Denies pain with urination, urinary urgency, urinary frequency Musculoskeletal: Denies weakness, muscle aches/pain, joint aches/pain Integumentary:Denies rash, new lesions Neurological: Denies headache, numbness, tingling, focal weakness Physical Exam Physical Exam: General: Alert, oriented to name, place, and year. NAD. Cooperative. Answers questions appropriately Skin: Dry skin on legs bilaterally, no pitting edema present. Capillary refill in fingertips <2 seconds. HEENT: Atraumatic, normocephalic. Pulm: CTAB A&P. -wheezes, -rales, -rhonchi. Symmetrical chest rise. No increase work of breathing. No respiratory distress. Cardiac: RRR, -mrg. Radial pulses intact and symmetrical. Abdominal: Nontender, nondistended, soft. BS present. Results & Data Vital Signs (Past 12 Hours) Vital Signs Temp Pulse Resp BP Pulse Ox 02/27/19 06:00 103 H 20 113/77 97 02/27/19 05:00 98 H 14 116/82 94 02/27/19 04:06 103 H 22 117/82 97 02/27/19 03:00 103 H 17 119/84 92 02/27/19 02:00 105 H 13 120/88 95 02/27/19 01:01 105 H 21 94 02/27/19 01:00 103 H 11 L 122/84 94 02/27/19 00:11 36.8 C 02/27/19 00:00 104 H 27 H 118/81 94 02/26/19 23:45 102 H 21 106/73 96 02/26/19 23:30 103 H 16 121/84 94 02/26/19 23:15 102 H 24 112/80 94 02/26/19 23:00 107 H 10 L 121/81 94 02/26/19 22:46 107 H 6 L 94 02/26/19 22:45 109 H 25 H 113/79 94 02/26/19 22:31 112 H 14 95 02/26/19 22:30 109 H 6 L 117/84 96 02/26/19 22:16 102 H 16 95 02/26/19 22:15 108 H 12 117/81 95 02/26/19 22:01 108 H 17 95 02/26/19 22:00 109 H 10 L 121/85 95 02/26/19 21:46 107 H 4 L 95 02/26/19 21:45 109 H 4 L 119/87 95 02/26/19 21:31 107 H 12 96 02/26/19 21:30 109 H 7 L 121/84 96 02/26/19 21:16 107 H 16 95 02/26/19 21:15 103 H 16 110/81 95 02/26/19 21:01 108 H 15 96 02/26/19 21:00 109 H 20 108/80 95 02/26/19 20:45 135 H 02/26/19 20:31 111 H 4 L 96 02/26/19 20:30 112 H 10 L 136/85 95 02/26/19 20:16 110 H 19 96 02/26/19 20:15 110 H 19 116/82 96 02/26/19 20:01 109 H 15 94 02/26/19 20:00 112 H 15 122/82 95 02/26/19 19:46 116 H 16 102/81 96 02/26/19 19:45 114 H 16 96 02/26/19 19:31 112 H 19 105/75 96 02/26/19 19:30 108 H 20 96 02/26/19 19:16 109 H 14 96 02/26/19 19:15 111 H 27 H 119/85 95 02/26/19 19:01 111 H 18 94 02/26/19 19:00 110 H 18 115/82 95 02/26/19 18:46 111 H 27 H 93/79 L 95 02/26/19 18:45 110 H 15 93/79 L 93 Resident Activity Tracking Resident Involvement: Resident Care Provided Care Provided: Adult [facility] Medicine
[2019-02-27 07:18] LABS: Estimated Average Glucose 286 mg/dl; Hemoglobin A1C 11.6 % (4.5-5.6)
[2019-02-27] MEDS: ATORVASTATIN 40 MG TAB PO SCH (07:44)
[2019-02-27] MEDS: ASPIRIN 81 MG ECTAB PO SCH (07:44)
[2019-02-27] MEDS: CLOPIDOGREL BISULFATE 75 MG TAB PO SCH (07:44)
[2019-02-27] MEDS: INSULIN ASPART 100 UNITS/ML 3 ML PEN SC SCH ×5 (08:02→20:44)
[2019-02-27] MEDS ORDERED: PHARMACY GLYCEMIC MGMT CONSULT PRN (09:45)
[2019-02-27] MEDS ORDERED: INSULIN GLARGINE SOLOSTAR 100 UNITS/ML 3 ML PEN SC ONE (10:00)
--- NOTE | 2019-02-27 12:07 | Cardiology Progress Note ---
Date of Service February 27, 2019 Assessment & Plan (1) Acute anterior wall VT: 2. Ischemic cardiomyopathy 3. Tachycardia 4. History of PE 5. poorly controlled DM Chest pain free. Troponin peaked. Hemodynamically stable -- Continue DAPT with ASA/Clopidogrel -- start metoprolol 25mg bid --> consolidate to toprol on discharge. -- start low dose MANI -- continue high-intensty statin -- mild pulm edema on exam-- diuretics as needed. From a cardiac standpoint Ok for transfer to telemetry. Subjective No chest pain this morning. Arm pain relieved. Denies shortness of breath. Appetite good. No other new concerns. tele reviewed -- sinus tachycardia to 110s. Review of Systems Review of Systems: All systems reviewed & are unremarkable except as noted in HPI & below Physical Exam Constitutional: WD/WN, vitals as above Eyes: + anicteric sclerae Respiratory: Auscultation: + crackles (at bases) Cardiovascular: Rate/Rhythm: + tachycardic Heart Sounds: no murmur Extremities: no edema right radial artery without ecchymosis/hematoma. pulse intact Gastrointestinal (Abdomen): normal bowel sounds, soft, nontender, no hepatosplenomegaly Skin: no rashes, warm and dry Results & Data Vital Signs (Past 12 Hours) Vital Signs Temp Pulse Resp BP Pulse Ox 02/27/19 11:00 36.8 C 111 H 14 115/79 97 02/27/19 08:00 99 H 16 117/80 95 02/27/19 07:00 36.8 C 99 H 16 111/73 93 02/27/19 06:00 103 H 20 113/77 97 02/27/19 05:00 98 H 14 116/82 94 02/27/19 04:06 103 H 22 117/82 97 02/27/19 03:00 103 H 17 119/84 92 02/27/19 02:00 105 H 13 120/88 95 02/27/19 01:01 105 H 21 94 02/27/19 01:00 103 H 11 L 122/84 94 02/27/19 00:11 36.8 C
[2019-02-27] MEDS: METOPROLOL TARTRATE 25 MG TAB PO SCH ×2 (12:32→20:43)
[2019-02-27] MEDS: LISINOPRIL 2.5 MG TAB PO SCH (12:32)
[2019-02-27] MEDS ORDERED: SEVERE STRESS LEVEL ONE (13:42)
[2019-02-27] MEDS ORDERED: DKA GOAL RANGE 150-250 mg/dl ONE (13:42)
[2019-02-27] MEDS ORDERED: INSULIN REGULAR 250 UNITS in SODIUM CHLORIDE 0.9% 247.5 ML IV SCH (13:45)
[2019-02-27] MEDS ORDERED: CARBOHYDRATES FOR HYPOGLYCEMIA PO PRN (14:30)
[2019-02-27] MEDS ORDERED: GLUCOSE 10 TABS/TUBE PO PRN (14:30)
[2019-02-27] MEDS ORDERED: GLUCOSE 40% GEL 15 GM TUBE PO PRN (14:30)
[2019-02-27] MEDS ORDERED: GLUCAGON FOR INJ 1 MG VIAL IM PRN (14:30)
[2019-02-27] MEDS ORDERED: DEXTROSE 50% 50 ML SYRINGE IV PRN (14:30)
--- NOTE | 2019-02-27 15:02 | Pharmacy Report ---
Glycemic Control Consultation - Date of Service February 27, 2019 - Scope Scope: Glycemic Pharmacist consulted by Dr Hoang on 02/27 for glycemic control and to write orders per [facility] inpatient glycemic control protocol - Objective Weight: 55.8 kg Accuchecks BSG (last 24hrs): 02/26/19 02/26/19 02/26/19 15:38 18:26 18:27 Glucose 366 H* POC Glucose 371 H* 410 H* 02/26/19 02/26/19 02/26/19 21:35 22:25 23:50 Glucose POC Glucose 300 H 294 H 248 H 02/27/19 02/27/19 02/27/19 00:48 01:41 02:40 Glucose POC Glucose 227 H 218 H 208 H 02/27/19 02/27/19 02/27/19 03:51 04:51 06:15 Glucose POC Glucose 184 H 182 H 183 H 02/27/19 02/27/19 02/27/19 07:37 08:29 09:30 Glucose POC Glucose 142 H 201 H 229 H 02/27/19 02/27/19 02/27/19 10:29 11:21 12:35 Glucose POC Glucose 184 H 152 H 150 H 02/27/19 13:29 Glucose POC Glucose 130 H Laboratory Data (last 24hrs): 02/26/19 15:38 Potassium 4.2 Carbon Dioxide 24 Anion Gap 10.0 Creatinine 0.81 Est Cr Clr Drug Dosing 53.6 Beta-Hydroxybutyric Acd 2.97 H HbA1c: Hemoglobin A1c 11.6 % (4.5-5.6) H 02/27/19 04:47 - Recent Pertinent Medications Outpatient Anti-diabetic Regimen: * Lantus 10 units qam, Novolog 10 units with meals/ tradjenta * questionable doses/compliance * A1c = 11.6 % 02/27/19 Risk Factors for Insulin Resistance: * Steroids: * Infection: * Pressors: * IVF: * Recent Surgery: POD #1 cath * Diet: T2dM * Mechanical Ventilation: - Assessment & Plan Assessment & Plan: ASSESSMENT: * 78 year old female admitted for ACS, POD#1 after cardiac cath with stent placement * Per discussion with community nutrition educator, patient says they are compliant with insulin regimen, per patient's family she dose not check BSGs/often misses doses, A1c 11.6% indicates poor outpatient control * BSGs in 400s improved on insulin infusion, transitioning off of infusion * ON previous admission patient lantus dose with being titrated up and had r equired 25 units prior to discharge, received 15 unit dose x 1 to help transition from drip, will provide scale tonight up to total of 25 units for the day * Novolog parameters were tighter than weight based stress of 3 and were tightened down to 15/4. Will start slightly tighter than weight based stress of 3 with a correction factor of 25 and carb ratio of 8 * Will add overnight checks for additional coverage PLAN FOR INPATIENT GLYCEMIC CONTROL: * Basal insulin * Lantus 15 units x 1 * HS Scale: Hold if <140, 5 units 140-180, 10 units if BSG >180 * Bolus insulin * NovoLog per scale ACHS or Q6hrs while NPO * Goal Range: Low 120 mg/dL - High 160 mg/dL * Correction Factor: 25 mg/dL/unit * Nutritional / Prandial insulin per carb ratio of 1 unit per 8 grams CHO consumed * Please note that the plan above was derived based on current level of insulin resistance and hospital stress. These recommendations are appropriate for inpatient admission only. Plan of care upon discharge will need to be reassessed to avoid potential outpatient hypo/hyperglycemia. Thank you.
--- NOTE | 2019-02-27 15:43 | Family Medicine Progress Note ---
Date of Service February 27, 2019 Assessment & Plan (1) ACS (acute coronary syndrome): 78 yo F w/pMHx DMII admitted on 02/26/19 with acute STEMI requiring emergent cardiac catheterization and uncontrolled DM. Acute anterior wall STEMI s/p cath 02/26/2019: Anterior STEMI/95% mid LAD stenosis with successful PCI of mid LAD with single drug-eluting stent. 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 Normal intracardiac filling pressure Troponin peaked at 59.1 and down trended. Triglycerides elevated, LDL and HDL borderline Echo with mild anteroseptal, septal and inferior akinesis. Akinesis of apical segments. Mild mid anterior, inferior lateral hypokinesis - Continue aspirin, clopidogrel and apixaban x1 week, then drop aspirin and continue clopidogrel and apixaban x 1 year - Unclear if patient is still taking her anticoagulation, if she does not require anticoagulation, will continue aspirin and clopidogrel for 1 year - Started metoprolol tartrate 25mg BID [plan to consolidate to prolonged jolly ccinate 50mg daily on d/c] - Increased atorvastatin to 80mg daily - For cardiac rehab on discharge Uncontrolled diabetes A1c 11.6 on arrival, down from 13.1 in 10/2018. Questionable compliance of medications [patient adamant of compliance, every family member denies this.] Pharmacy glycemic management consult and senior health educator consult placed, assistance appreciated. - Continue insulin drip at present - Will need to determine safe and diabetic regimen for patient and family Diastolic and systolic heart failure Echo reports Normal LV size with borderline concentric LVH, but LV EF 25 -30%. Normal RV size and function. Grade 1 diastolic dysfunction. - Initiated lisinopril 2.5mg daily, but this has caused SBP to drop to 90s - patient asymptomatic, but will have to monitor and determine if safe to continue. - Euvolemic at present, no diuretics initiated at this time. - Possibly a candidate for heart failure clinic on discharge. ?Underlying dementia Patient seems to have poor short-term recall, but long-term memory seems intact. Concern for safety at home. - PT/OT eval's ordered Pulmonary hypertension Echo reports mild pulmonary hypertension. Estimated PASP 40 to 45 mmHg. Estimated RA 8 mmHg - For outpatient sleep study Chronic PE (Noted on October 2018 admit) - Currently on apixaban - Will need to determine if patient needs to stay on this medication long-term. Compression fracture of thoracic vertebrae - Previous recommendation of Ortho follow-up. Incidental adrenal adenoma FEN: - No IVF - Electrolyte in acceptable range, monitoring per insulin drip protocol - DM2/HH/low salt diet Code status: Full code (2) Acute anterior wall [place]: (3) Hypertension: (4) Diabetes: (5) Pulmonary embolism: (6) Compression fracture of thoracic vertebra: (7) Incidental adrenal cortical adenoma: Supervising Physician Co-Signing Physician Notes Resident Physician Supervision Note: I independently interviewed and examined the patient and verified the plaza history and physical, reviewed labs and image studies, discussed the case with the resident Dr. Carmichael and agree with the findings and care plan. Subjective Patient sitting up in bed, denies any current chest pain or arm pain as previous. Denies dizziness, palpitations, heart racing, difficulty breathing. Does not recall all events from last night, and mentions her family is waiting in the waiting room [which is untrue]. Denies previous episodes of chest or arm pain. States partial compliance with diabetic regimen, stating she takes insulin only with meals and does not know if she takes any long-acting insulin. She states she is active at home and denies any ambulatory dysfunction including weakness/numbness/tingling of her extremities, or any neuropathic pain. She states that she and her live together and are managing well. She has no questions at present. Review of Systems Constitutional: + fatigue; no fever, no chills, no sweats and no anorexia Respiratory: no cough, no chest congestion, no dyspnea on exertion and no hemoptysis Cardiovascular: as per Subjective / HPI Gastrointestinal: no abdominal pain, no heartburn, no nausea, no vomiting, no change in bowel habits and no change in stools Neurologic: no gait abnormality, no unsteadiness, no falls, no tingling, no numbness, no dizziness and no memory loss Psychiatric: + irritability Physical Exam Physical Exam: General Appearance: WD/WN, no apparent distress Eyes: normal inspection, EOMI, sclerae normal ENT: normal ENT inspection, hearing grossly normal, pharynx normal Neck: supple, no adenopathy, no JVD, trachea midline Respiratory/Chest: chest non-tender, lungs clear, normal breath sounds, no respiratory distress, no accessory muscle use Cardiovascular: regular rhythm, rate tachycardic, no murmur, normal peripheral pulses Abdomen / GI: normal bowel sounds, non tender, soft, no organomegaly MSK: normal inspection except kyphosis appreciated, no calf tenderness, normal capillary refill, no pedal edema, normal range of motion 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, no gross motor/sensory deficits, alert, normal mood/affect, oriented x 3 Skin: normal color, warm/dry, no rash, no bleeding/bruising on wrist at site of cath Results & Data Vital Signs (Past 12 Hours) Vital Signs Temp Pulse Pulse Resp BP BP Pulse Ox 02/27/19 15:35 36.7 C 82 18 97/65 L 92 02/27/19 14:53 86 02/27/19 13:56 104 H 02/27/19 11:00 36.8 C 111 H 14 115/79 97 02/27/19 08:00 99 H 16 117/80 95 02/27/19 07:00 36.8 C 99 H 16 111/73 93 02/27/19 06:00 103 H 20 113/77 97 02/27/19 05:00 98 H 14 116/82 94 02/27/19 04:06 103 H 22 117/82 97 Laboratory Results Laboratory Results - last 24 hr 02/26/19 02/26/19 02/26/19 15:38 15:38 15:38 WBC 9.91 RBC 5.06 Hgb 15.1 Hct 43.2 MCV 85.4 MCH 29.8 MCHC 35.0 RDW Std Deviation 40.6 RDW Coeff of Parviz 13.2 Plt Count 275 MPV 9.8 Immature Gran % (Auto) Neut % (Auto) Lymph % (Auto) Finney % (Auto) Eos % (Auto) Baso % (Auto) Immature Gran # (Auto) Neut # (Auto) Lymph # (Auto) Finney # (Auto) Eos # (Auto) Baso # (Auto) Neutrophils % (Manual) 36.8 Lymphocytes % (Manual) 42.2 Reactive Lymphs % (Man) 14.9 Monocytes % (Manual) 3.5 Eosinophils % (Manual) 2.6 Neutrophils # (Manual) 3.65 Total Absolute Neuts 3.65 Lymphocytes # (Manual) 4.18 H Reactive Lymphs # 1.48 Total Abs Lymphocytes 5.66 H Monocytes # (Manual) 0.35 Eosinophils # (Manual) 0.26 Blood Smear Review PT 11.0 INR 1.1 Activ Coag Time Kaolin Sodium 137 Potassium 4.2 Chloride 102 Carbon Dioxide 24 Anion Gap 10.0 BUN 10 Creatinine 0.81 Est Cr Clr Drug Dosing 53.6 Est GFR ( Amer) 80.6 Est GFR (Non-Af Amer) 69.6 BUN/Creatinine Ratio 12.5 Glucose 366 H* POC Glucose Estimat Average Glucose Hemoglobin A1c Calcium 9.7 Total Bilirubin 0.9 AST 22 ALT 27 Alkaline Phosphatase 116 Troponin I 0.215 H* Total Protein 8.0 Albumin 3.7 Globulin 4.3 H Albumin/Globulin Ratio 0.9 Triglycerides Cholesterol LDL Cholesterol, Calc VLDL Cholesterol, Calc HDL Cholesterol Cholesterol/HDL Ratio Beta-Hydroxybutyric Acd 2.97 H Nasal Screen MRSA (PCR) 02/26/19 02/26/19 02/26/19 16:50 18:00 18:26 WBC RBC Hgb Hct MCV MCH MCHC RDW Std Deviation RDW Coeff of Parviz Plt Count MPV Immature Gran % (Auto) Neut % (Auto) Lymph % (Auto) Finney % (Auto) Eos % (Auto) Baso % (Auto) Immature Gran # (Auto) Neut # (Auto) Lymph # (Auto) Finney # (Auto) Eos # (Auto) Baso # (Auto) Neutrophils % (Manual) Lymphocytes % (Manual) Reactive Lymphs % (Man) Monocytes % (Manual) Eosinophils % (Manual) Neutrophils # (Manual) Total Absolute Neuts Lymphocytes # (Manual) Reactive Lymphs # Total Abs Lymphocytes Monocytes # (Manual) Eosinophils # (Manual) Blood Smear Review PT INR Activ Coag Time Kaolin 285 H Sodium Potassium Chloride Carbon Dioxide Anion Gap BUN Creatinine Est Cr Clr Drug Dosing Est GFR ( Amer) Est GFR (Non-Af Amer) BUN/Creatinine Ratio Glucose POC Glucose 371 H* Estimat Average Glucose Hemoglobin A1c Calcium Total Bilirubin AST ALT Alkaline Phosphatase Troponin I Total Protein Albumin Globulin Albumin/Globulin Ratio Triglycerides Cholesterol LDL Cholesterol, Calc VLDL Cholesterol, Calc HDL Cholesterol Cholesterol/HDL Ratio Beta-Hydroxybutyric Acd Nasal Screen MRSA (PCR) Negative 02/26/19 02/26/19 02/26/19 18:27 21:35 22:25 WBC RBC Hgb Hct MCV MCH MCHC RDW Std Deviation RDW Coeff of Parviz Plt Count MPV Immature Gran % (Auto) Neut % (Auto) Lymph % (Auto) Finney % (Auto) Eos % (Auto) Baso % (Auto) Immature Gran # (Auto) Neut # (Auto) Lymph # (Auto) Finney # (Auto) Eos # (Auto) Baso # (Auto) Neutrophils % (Manual) Lymphocytes % (Manual) Reactive Lymphs % (Man) Monocytes % (Manual) Eosinophils % (Manual) Neutrophils # (Manual) Total Absolute Neuts Lymphocytes # (Manual) Reactive Lymphs # Total Abs Lymphocytes Monocytes # (Manual) Eosinophils # (Manual) Blood Smear Review PT INR Activ Coag Time Kaolin Sodium Potassium Chloride Carbon Dioxide Anion Gap BUN Creatinine Est Cr Clr Drug Dosing Est GFR ( Amer) Est GFR (Non-Af Amer) BUN/Creatinine Ratio Glucose POC Glucose 410 H* 300 H 294 H Estimat Average Glucose Hemoglobin A1c Calcium Total Bilirubin AST ALT Alkaline Phosphatase Troponin I Total Protein Albumin Globulin Albumin/Globulin Ratio Triglycerides Cholesterol LDL Cholesterol, Calc VLDL Cholesterol, Calc HDL Cholesterol Cholesterol/HDL Ratio Beta-Hydroxybutyric Acd Nasal Screen MRSA (PCR) 02/26/19 02/26/19 02/27/19 23:18 23:50 00:48 WBC RBC Hgb Hct MCV MCH MCHC RDW Std Deviation RDW Coeff of Parviz Plt Count MPV Immature Gran % (Auto) Neut % (Auto) Lymph % (Auto) Finney % (Auto) Eos % (Auto) Baso % (Auto) Immature Gran # (Auto) Neut # (Auto) Lymph # (Auto) Finney # (Auto) Eos # (Auto) Baso # (Auto) Neutrophils % (Manual) Lymphocytes % (Manual) Reactive Lymphs % (Man) Monocytes % (Manual) Eosinophils % (Manual) Neutrophils # (Manual) Total Absolute Neuts Lymphocytes # (Manual) Reactive Lymphs # Total Abs Lymphocytes Monocytes # (Manual) Eosinophils # (Manual) Blood Smear Review PT INR Activ Coag Time Kaolin Sodium Potassium Chloride Carbon Dioxide Anion Gap BUN Creatinine Est Cr Clr Drug Dosing Est GFR ( Amer) Est GFR (Non-Af Amer) BUN/Creatinine Ratio Glucose POC Glucose 248 H 227 H Estimat Average Glucose Hemoglobin A1c Calcium Total Bilirubin AST ALT Alkaline Phosphatase Troponin I 59.100 H* Total Protein Albumin Globulin Albumin/Globulin Ratio Triglycerides Cholesterol LDL Cholesterol, Calc VLDL Cholesterol, Calc HDL Cholesterol Cholesterol/HDL Ratio Beta-Hydroxybutyric Acd Nasal Screen MRSA (PCR) 02/27/19 02/27/19 02/27/19 01:41 02:40 03:51 WBC RBC Hgb Hct MCV MCH MCHC RDW Std Deviation RDW Coeff of Parviz Plt Count MPV Immature Gran % (Auto) Neut % (Auto) Lymph % (Auto) Finney % (Auto) Eos % (Auto) Baso % (Auto) Immature Gran # (Auto) Neut # (Auto) Lymph # (Auto) Finney # (Auto) Eos # (Auto) Baso # (Auto) Neutrophils % (Manual) Lymphocytes % (Manual) Reactive Lymphs % (Man) Monocytes % (Manual) Eosinophils % (Manual) Neutrophils # (Manual) Total Absolute Neuts Lymphocytes # (Manual) Reactive Lymphs # Total Abs Lymphocytes Monocytes # (Manual) Eosinophils # (Manual) Blood Smear Review PT INR Activ Coag Time Kaolin Sodium Potassium Chloride Carbon Dioxide Anion Gap BUN Creatinine Est Cr Clr Drug Dosing Est GFR ( Amer) Est GFR (Non-Af Amer) BUN/Creatinine Ratio Glucose POC Glucose 218 H 208 H 184 H Estimat Average Glucose Hemoglobin A1c Calcium Total Bilirubin AST ALT Alkaline Phosphatase Troponin I Total Protein Albumin Globulin Albumin/Globulin Ratio Triglycerides Cholesterol LDL Cholesterol, Calc VLDL Cholesterol, Calc HDL Cholesterol Cholesterol/HDL Ratio Beta-Hydroxybutyric Acd Nasal Screen MRSA (PCR) 02/27/19 02/27/19 02/27/19 04:47 04:47 04:47 WBC 9.83 RBC 4.67 Hgb 14.1 Hct 39.2 MCV 83.9 MCH 30.2 MCHC 36.0 RDW Std Deviation 40.3 RDW Coeff of Parviz 13.3 Plt Count 209 MPV 9.2 Immature Gran % (Auto) 0.2 Neut % (Auto) 65.1 Lymph % (Auto) 25.9 Finney % (Auto) 8.4 Eos % (Auto) 0.3 Baso % (Auto) 0.1 Immature Gran # (Auto) 0.02 Neut # (Auto) 6.39 Lymph # (Auto) 2.55 Finney # (Auto) 0.83 H Eos # (Auto) 0.03 Baso # (Auto) 0.01 Neutrophils % (Manual) Lymphocytes % (Manual) Reactive Lymphs % (Man) Monocytes % (Manual) Eosinophils % (Manual) Neutrophils # (Manual) Total Absolute Neuts Lymphocytes # (Manual) Reactive Lymphs # Total Abs Lymphocytes Monocytes # (Manual) Eosinophils # (Manual) Blood Smear Review PT INR Activ Coag Time Kaolin Sodium Potassium Chloride Carbon Dioxide Anion Gap BUN Creatinine Est Cr Clr Drug Dosing Est GFR ( Amer) Est GFR (Non-Af Amer) BUN/Creatinine Ratio Glucose POC Glucose Estimat Average Glucose 286 Hemoglobin A1c 11.6 H Calcium Total Bilirubin AST ALT Alkaline Phosphatase Troponin I 52.600 H* Total Protein Albumin Globulin Albumin/Globulin Ratio Triglycerides 209 H Cholesterol 180 LDL Cholesterol, Calc 105 VLDL Cholesterol, Calc 42 HDL Cholesterol 33 Cholesterol/HDL Ratio 6 Beta-Hydroxybutyric Acd Nasal Screen MRSA (PCR) 02/27/19 02/27/19 02/27/19 04:51 06:15 07:37 WBC RBC Hgb Hct MCV MCH MCHC RDW Std Deviation RDW Coeff of Parviz Plt Count MPV Immature Gran % (Auto) Neut % (Auto) Lymph % (Auto) Finney % (Auto) Eos % (Auto) Baso % (Auto) Immature Gran # (Auto) Neut # (Auto) Lymph # (Auto) Finney # (Auto) Eos # (Auto) Baso # (Auto) Neutrophils % (Manual) Lymphocytes % (Manual) Reactive Lymphs % (Man) Monocytes % (Manual) Eosinophils % (Manual) Neutrophils # (Manual) Total Absolute Neuts Lymphocytes # (Manual) Reactive Lymphs # Total Abs Lymphocytes Monocytes # (Manual) Eosinophils # (Manual) Blood Smear Review PT INR Activ Coag Time Kaolin Sodium Potassium Chloride Carbon Dioxide Anion Gap BUN Creatinine Est Cr Clr Drug Dosing Est GFR ( Amer) Est GFR (Non-Af Amer) BUN/Creatinine Ratio Glucose POC Glucose 182 H 183 H 142 H Estimat Average Glucose Hemoglobin A1c Calcium Total Bilirubin AST ALT Alkaline Phosphatase Troponin I Total Protein Albumin Globulin Albumin/Globulin Ratio Triglycerides Cholesterol LDL Cholesterol, Calc VLDL Cholesterol, Calc HDL Cholesterol Cholesterol/HDL Ratio Beta-Hydroxybutyric Acd Nasal Screen MRSA (PCR) 02/27/19 02/27/19 02/27/19 08:29 09:30 10:29 WBC RBC Hgb Hct MCV MCH MCHC RDW Std Deviation RDW Coeff of Parviz Plt Count MPV Immature Gran % (Auto) Neut % (Auto) Lymph % (Auto) Finney % (Auto) Eos % (Auto) Baso % (Auto) Immature Gran # (Auto) Neut # (Auto) Lymph # (Auto) Finney # (Auto) Eos # (Auto) Baso # (Auto) Neutrophils % (Manual) Lymphocytes % (Manual) Reactive Lymphs % (Man) Monocytes % (Manual) Eosinophils % (Manual) Neutrophils # (Manual) Total Absolute Neuts Lymphocytes # (Manual) Reactive Lymphs # Total Abs Lymphocytes Monocytes # (Manual) Eosinophils # (Manual) Blood Smear Review PT INR Activ Coag Time Kaolin Sodium Potassium Chloride Carbon Dioxide Anion Gap BUN Creatinine Est Cr Clr Drug Dosing Est GFR ( Amer) Est GFR (Non-Af Amer) BUN/Creatinine Ratio Glucose POC Glucose 201 H 229 H 184 H Estimat Average Glucose Hemoglobin A1c Calcium Total Bilirubin AST ALT Alkaline Phosphatase Troponin I Total Protein Albumin Globulin Albumin/Globulin Ratio Triglycerides Cholesterol LDL Cholesterol, Calc VLDL Cholesterol, Calc HDL Cholesterol Cholesterol/HDL Ratio Beta-Hydroxybutyric Acd Nasal Screen MRSA (PCR) 02/27/19 02/27/19 02/27/19 11:21 12:35 13:29 WBC RBC Hgb Hct MCV MCH MCHC RDW Std Deviation RDW Coeff of Parviz Plt Count MPV Immature Gran % (Auto) Neut % (Auto) Lymph % (Auto) Finney % (Auto) Eos % (Auto) Baso % (Auto) Immature Gran # (Auto) Neut # (Auto) Lymph # (Auto) Finney # (Auto) Eos # (Auto) Baso # (Auto) Neutrophils % (Manual) Lymphocytes % (Manual) Reactive Lymphs % (Man) Monocytes % (Manual) Eosinophils % (Manual) Neutrophils # (Manual) Total Absolute Neuts Lymphocytes # (Manual) Reactive Lymphs # Total Abs Lymphocytes Monocytes # (Manual) Eosinophils # (Manual) Blood Smear Review PT INR Activ Coag Time Kaolin Sodium Potassium Chloride Carbon Dioxide Anion Gap BUN Creatinine Est Cr Clr Drug Dosing Est GFR ( Amer) Est GFR (Non-Af Amer) BUN/Creatinine Ratio Glucose POC Glucose 152 H 150 H 130 H Estimat Average Glucose Hemoglobin A1c Calcium Total Bilirubin AST ALT Alkaline Phosphatase Troponin I Total Protein Albumin Globulin Albumin/Globulin Ratio Triglycerides Cholesterol LDL Cholesterol, Calc VLDL Cholesterol, Calc HDL Cholesterol Cholesterol/HDL Ratio Beta-Hydroxybutyric Acd Nasal Screen MRSA (PCR) 02/27/19 16:16 WBC RBC Hgb Hct MCV MCH MCHC RDW Std Deviation RDW Coeff of Parviz Plt Count MPV Immature Gran % (Auto) Neut % (Auto) Lymph % (Auto) Finney % (Auto) Eos % (Auto) Baso % (Auto) Immature Gran # (Auto) Neut # (Auto) Lymph # (Auto) Finney # (Auto) Eos # (Auto) Baso # (Auto) Neutrophils % (Manual) Lymphocytes % (Manual) Reactive Lymphs % (Man) Monocytes % (Manual) Eosinophils % (Manual) Neutrophils # (Manual) Total Absolute Neuts Lymphocytes # (Manual) Reactive Lymphs # Total Abs Lymphocytes Monocytes # (Manual) Eosinophils # (Manual) Blood Smear Review PT INR Activ Coag Time Kaolin Sodium Potassium Chloride Carbon Dioxide Anion Gap BUN Creatinine Est Cr Clr Drug Dosing Est GFR ( Amer) Est GFR (Non-Af Amer) BUN/Creatinine Ratio Glucose POC Glucose 218 H Estimat Average Glucose Hemoglobin A1c Calcium Total Bilirubin AST ALT Alkaline Phosphatase Troponin I Total Protein Albumin Globulin Albumin/Globulin Ratio Triglycerides Cholesterol LDL Cholesterol, Calc VLDL Cholesterol, Calc HDL Cholesterol Cholesterol/HDL Ratio Beta-Hydroxybutyric Acd Nasal Screen MRSA (PCR) Resident Activity Tracking Resident Involvement: Resident Care Provided Care Provided: Adult Hospital Medicine (1) Diabetes Diabetes mellitus complication status: without complication Diabetes mellitus correction insulin use: with correction use Diabetes mellitus type: type 2 Qualified Code(s): E11.9 - Type 2 diabetes mellitus without complications; 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
[2019-02-27] MEDS ORDERED: INSULIN ASPART 100 UNITS/ML 3 ML PEN SC SCH (18:00)
[2019-02-27] MEDS ORDERED: INSULIN GLARGINE SOLOSTAR 100 UNITS/ML 3 ML PEN SC SCH (21:00)
[2019-02-28] MEDS: INSULIN ASPART 100 UNITS/ML 3 ML PEN SC SCH ×5 (00:15→13:18)
[2019-02-28] MEDS: APIXABAN 5 MG TABLET PO SCH ×2 (00:15→10:12)
[2019-02-28 07:23] LABS: BUN Creatinine Ratio 14.3 (10-20); Calcium 8.8 mg/dl (8.5-10.1); Creatinine Clr Calc Pharmacy 60.3 ml/min; Est GFR (African American) 97.1; Est GFR (Non-African American) 83.8; Potassium 3.8 mmol/L (3.5-5.1)
[2019-02-28] MEDS: LISINOPRIL 2.5 MG TAB PO SCH (08:10)
[2019-02-28] MEDS: ATORVASTATIN 40 MG TAB PO SCH (08:11)
[2019-02-28] MEDS: CLOPIDOGREL BISULFATE 75 MG TAB PO SCH (08:11)
[2019-02-28] MEDS: METOPROLOL TARTRATE 25 MG TAB PO SCH (08:11)
[2019-02-28] MEDS: ASPIRIN 81 MG ECTAB PO SCH (08:12)
[2019-02-28] MEDS ORDERED: INSULIN GLARGINE SOLOSTAR 100 UNITS/ML 3 ML PEN SC SCH (09:00)
--- NOTE | 2019-02-28 13:09 | Discharge Summary ---
Date of Service February 28, 2019 Admission HPI Per Admitting Provider 78-year-old female presented to the emergency department by EMS for left arm pain and nausea earlier on day of admission. She denied concurrent chest pain, diaphoresis, or vomiting. They contacted EMS, at which point she received nitroglycerin and aspirin. Her EKG was consistent with a STEMI and she went for emergent cath. On discussion with patient and her son this evening in the ICU, she says she is resting comfortably and eat a bit of her dinner. She denies any present complaints to include any chest pain, shortness of breath, nausea, wrist pain, or other acute concerns. --- Past medical history includes hypertension, uncontrolled diabetes, chronic PE, compression fracture of the thoracic vertebrae, incidental adrenal adenoma, now status post STEMI and CAD. --- Patient denies any past surgical history. --- Social history includes quitting smoking about 15 years ago (with perhaps 20+ years prior history), denies alcohol use. Lives at home with her . Admission Exam Per Admitting Provider GENERAL: Awake, alert, oriented to name and place, comfortable, does not appear in acute distress. HENT: Normocephalic, atraumatic. Oropharynx unremarkable. EYES: Normal conjunctiva. Sclera non-icteric. NECK: Inspection normal. Non-tender. Supple and full ROM. No nuchal rigidity. CARDIAC: +S1S2 RRR, no murmurs. RESPIRATORY: Clear to auscultation. No wheezes or rales. Normal respiratory effort. GI: +BS, soft, non-distended. No tenderness to palpation. No rebound or guarding. No appreciable masses. EXTREMITIES: No pedal edema or calf tenderness. Moving all extremities naturally and easily. Right wrist compression band s/p cath. Very dry leg skin. NEURO: No gross neuro deficits. Principal Diagnosis STEMI, hyperglycemia Discharge Exam Constitutional WD/WN, vitals as above Respiratory normal respiratory effort, lungs clear to auscultation Cardiovascular RRR, no murmur, no edema Gastrointestinal (Abdomen) normal bowel sounds, soft, nontender, no hepatosplenomegaly Skin no rashes, warm and dry Neurologic senior care memory intact, but forgetful w/regards to short term memory, ie. did not remember she had an WI, but was able to tell me she came to the hospital due to arm pain Discharge Data Allergies Allergy/AdvReac Type Severity Reaction Status Date / Time Penicillins Allergy Unknown Unverified 11/05/18 14:59 Consultations 02/26/19 17:21 Consult Case Management - Discharge Planning Routine 02/26/19 17:22 Consult Manager Perioperative Routine 02/26/19 17:27 Consult Cardiac Rehabilitation Routine Procedures Performed Operation Date: 02/26/19 16:30 Actual Procedures p Aspiration/PCI w/KALA for Stemi(Not Applicable) - Royce Bearden MD s Cineradiography w/Routine Exam(Not Applicable) - Royce Bearden MD Ordered Studies 02/26/19 16:07 CL Cath Imgs for PACS use only Stat Hospital Course (1) ACS (acute coronary syndrome): Ms. Lu is a 78 year old female with a past medical history of DMII admitted on 02/26/19 with acute STEMI requiring emergent cardiac catheterization and uncontrolled DM. Acute anterior wall STEMI s/p cath 02/26/2019: Anterior STEMI/95% mid LAD stenosis with successful PCI of mid LAD with single drug-eluting stent. 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 - Troponin peaked at 59.1 and downtrended. - aspirin and plavix started - pt's BPs were dropping to 90s/60s with 25mg of metoprolol tartrate BID, and therefore she was discharged on 25mg metoprolol succinate daily instead - Increased atorvastatin to 80mg daily - FLP - TG 209, Cholesterol 180, LDL 105, HDL 33 - decrease home lisinopril from 5mg to 2.5mg daily - Cardiac rehab consulted, follow up with cardiology Uncontrolled diabetes A1c 11.6 on arrival, down from 13.1 in 10/2018. Questionable compliance of medications [patient adamant of compliance, every family member denies this.] - Initially placed on insulin drip for a glucose level of 410 - pt states she was taking novolog 10 units with each meal at home and was not taking her long acting insulin - will d/c on Lantus 20 units QAM, and 5 units novolog with each meal. Can adjust regimen as needed in outpatient setting Diastolic and systolic heart failure - ECHO reports LVEF 25 -30% w/mild anteroseptal, septal and inferior akinesis, akinesis of apical segments, and mild mid-anterior, inferolateral hypokinesis. - Euvolemic at present Underlying dementia Patient seems to have poor short-term recall, but long-term memory seems intact. Lives at home with , family is nearby and supportive - home health being arranged to assist w/medications Pulmonary hypertension - ECHO reports mild pulmonary hypertension. Estimated PASP 40 to 45 mmHg. Estimated RA 8 mmHg - Recommend outpatient sleep study to evaluate for SHARIFA Chronic PE (Noted on October 2018 admit) - Was meant to be on apixaban from October -> pt was not taking this - d/c apixaban Compression fracture of thoracic vertebrae - PCP follow up for osteoporosis eval Incidental adrenal adenoma - 2.9 x 1.5cm left adrenal gland nodule seen on CTA done in October 2018 - outpatient f/u Total Time Total Time Spent Total Time Spent (In Minutes): 30 Discharge Plan Discharge Items Patient Disposition: Home - Home Health Services Reason For Visit: ACS Discharge Diagnosis: Heart Attack Discharge Goals: Decrease discomfort, Improve disease control and Improve function Activity: As commented below Non-emergency contact: Primary Care Provider Call non-emergency contact if: you have any medication questions, your pain is not controlled and your temperature is above 101 Follow-up/Referrals: Ben Paula, [Primary Care Provider] - Diet: Carb Consistent or DM2 and Heart Healthy Addtl Provider Instructions: Ms. Lu, you were admitted to [facility] due to a heart attack. You had a stent placed in one of the arteries that provides blood to your heart, and this well help keep that artery open. It is extremely important that you take your medications as prescribed, in order to prevent another heart attack. A list of your medications is provided below. We will also have our correctional case manager come and talk to you about arranging home health, to assist you with taking your medications at home. Please do not exert yourself over the next few days - take it easy, keep your activity to a minimum, no heavy lifting. You will be receiving a phone call about cardiac rehab, which a program designed to help people who have had heart attacks gradually return to their full activity. You will also be following up with Dr. Bearden, who was the heart doctor who saw you in the hospital. Your new medications include: 1) Aspirin and Clopidogrel (Plavix) - these are medications that will keep your blood thin so that the arteries in your heart do not clog up. 2) Atorvastatin - this is a medication to lower your cholesterol levels, as cholesterol plaques in your arteries can increase your chances of having another heart attack 3) Lisinopril - this is a blood pressure tablet 4) Metoprolol - this helps decrease the work load on your heart and also lowers your blood pressure Your sugar levels were very high when you came in to the hospital, and you were initially treated with IV insulin. We will be adding long acting insulin to your regimen. Please take 20 units of Lantus (long acting insulin) every morning, and then give yourself 5 units of short acting insulin (Novolog) prior to each meal. Please continue to check your blood sugar levels regularly. Your family doctor can make adjustments to your insulin dosing based on how you do with this regimen. If you have any further episodes of arm pain, chest pain, shortness of breath, or notice your sugar levels are persistently over 300, please seek medical attention. Prescriptions: New clopidogrel 75 mg Tablet 75 mg PO QAM 30 Days Qty: 30 RF: 3 atorvastatin 40 mg Tablet 80 mg PO QAM 30 Days Qty: 60 RF: 3 aspirin [Ecotrin Low Strength] 81 mg Tablet,Delayed Release (Dr/Ec) 81 mg PO QAM 30 Days Qty: 30 RF: 3 lisinopril 2.5 mg Tablet 2.5 mg PO QAM 30 Days Qty: 30 RF: 3 metoprolol succinate 25 mg tablet extended release 24 hr 25 mg PO DAILY Qty: 30 RF: 3 Continued acetaminophen [Mapap (acetaminophen)] 325 mg Tablet 650 mg PO Q4H Qty: 60 RF: 0 oxycodone 5 mg capsule 5 mg PO Q8H PRN (Reason: pain) Qty: 20 RF: 0 Changed Novolog Flexpen U-100 Insulin 100 unit/mL Insulin Pen 5 units SC UD Qty: 15 RF: 0 Lantus Solostar U-100 Insulin 100 unit/mL (3 mL) Insulin Pen 20 unit SC QAM Qty: 10 RF: 0 Discontinued lisinopril [Zestril] 5 mg Tablet 5 mg PO QAM Qty: 30 RF: 0 Eliquis 5 mg tablet See Rx Instructions .ROUTE .COMPLEX Qty: 60 RF: 0 Stand-Alone Forms: My [facility] [place] artandseek [facility]/Other Patient Handouts: Atorvastatin Calcium Oral tablet, Metoprolol Succinate Hydrochlorothiazide Oral tablet extended-release, Lisinopril Oral tab let, Stent Coronary, Care Incision, Heart Attack Dc, Meds Taking Discharge Orders: Discharge Order (Routine); Ordered 02/28/19 Ordered By: Paola Obrien Admission Data Admit Date/Time: 02/26/19 17:21 Attending Provider: Selene Laura Admit Provider: Royce Bearden Primary Care Provider: Ben Paula Other Providers: Saurabh Lazo Brian W Service: Telemetry Other Interventions: Discharge Summary Assessment (RN) Last Done: 02/28/19 13:59 DC Date/Time DO NOT enter until pt leaves facility: 02/28/19 15:10 Supervising Physician Co-Signing Physician Notes Resident Physician Supervision Note: I independently interviewed and examined the patient and verified the plaza history and physical, reviewed labs and image studies, discussed the case with the resident Dr. Obrien and agree with the findings and care plan. Time spent in discharge 35 min Resident Activity Tracking Resident Involvement: Resident Care Provided Care Provided: Adult Hospital Medicine
--- NOTE | 2019-02-28 16:11 | Cardiology Progress Note ---
Date of Service February 28, 2019 Assessment & Plan (1) Acute anterior wall ID: 2. Ischemic cardiomyopathy 3. Tachycardia 4. History of PE 5. poorly controlled DM Patient remains chest pain-free. Electrically stable. From a cardiac standpoint okay with discharge today. -- Continue DAPT with ASA/Clopidogrel Does not sound like patient was taking Eliquis at home and would not resume --Home on Toprol-XL 25 mg daily --Continue low dose MANI inhibitor -- continue high-intensty statin Discussed LifeVest but with patient's poor compliance with medications in the past do not feel patient is a reasonable candidate. Follow-up with me in 2 weeks. PCP for continued diabetes management. Subjective Feeling well today. Denies any chest or arm pain. No significant source of breath. No new complaints. Next Telemetry reviewedno events per Review of Systems Review of Systems: All systems reviewed & are unremarkable except as noted in HPI & below Physical Exam Constitutional: WD/WN, vitals as above Eyes: + anicteric sclerae Respiratory: normal respiratory effort, lungs clear to auscultation Auscultation: + crackles (Few at bases) Cardiovascular: RRR, no murmur, no edema Right radial artery access site with no ecchymosis, hematoma. Distal pulse and sensation intact. Gastrointestinal (Abdomen): normal bowel sounds, soft, nontender, no hepatosplenomegaly Skin: no rashes, warm and dry Psychiatric: A+Ox3, euthymic affect Results & Data Vital Signs (Past 12 Hours) Vital Signs Temp Pulse Pulse Pulse Resp BP Pulse Ox 02/28/19 13:59 36.7 C 84 82 18 94/64 L 95 02/28/19 11:44 36.7 C 84 18 94/64 L 95 02/28/19 08:00 86 02/28/19 07:33 36.6 C 95 H 18 107/71 90
== END 2019-02-28 15:10 | disposition home health service (06) | DRG 247 ==
LOC: ED 16:05 → 1E 16:21 → CC 16:21 → 1E 17:21 → SUATTDRO 17:21 → 2S 02-27 13:43
DX: E11.65 Type 2 diabetes mellitus with hyperglycemia; Z79.4 Long term (current) use of insulin; I11.0 Hypertensive heart disease with heart failure; Z88.0 Allergy status to penicillin; I21.09 ST elevation (STEMI) myocardial infarction involving other coronary artery of anterior wall; I27.20 Pulmonary hypertension, unspecified; I50.40 Unspecified combined systolic (congestive) and diastolic (congestive) heart failure; Z86.711 Personal history of pulmonary embolism; F03.90 Unspecified dementia, unspecified severity, without behavioral disturbance, psychotic disturbance, mood disturbance, and anxiety

== ENCOUNTER 2019-08-07 13:32 | Inpatient (IN) ==
--- NOTE | 2019-08-07 14:35 | Emergency Department Note ---
Entered by Rita Gallardo acting as a scribe for Patricio King DO History of Present Illness General Chief complaint: Fall Time Seen by Provider: 08/07/19 14:25 Source: patient and family History of Present Illness Onset (ago): hour(s) (this morning) Location: upper extremity (shoulder) and right Radiation: non-radiation (to head and neck) Pain Consistency: + constant Maximum Pain Intensity: 3 Associated symptoms: + denies other symptoms (leg pain) The patient is a 79 year old female who presents to the Emergency Room with complaints of constant right shoulder pain beginning after a fall in her kitchen that occurred this morning. The patient denies any radiation of the pain into her head or neck. She also denies leg pain. The patient's family states the patient has a history of an UT, had a stent placed, and is currently on blood thinners. She notes the patient's PCP is Dr. Bearden. Home Medications Home Medications Medication Instructions Recorded Confirmed Type acetaminophen [Mapap 650 mg PO Q4H #60 tab 11/11/18 08/07/19 Rx (acetaminophen)] oxycodone 5 mg PO Q8H PRN #20 cap 11/11/18 08/07/19 Rx lisinopril 10 mg tablet 10 mg PO DAILY 30 Days #30 tab 06/26/19 08/07/19 Rx clopidogrel 75 mg tablet 75 mg PO QAM 90 Days #90 tab 06/27/19 08/07/19 Rx metoprolol succinate ER 25 mg 25 mg PO DAILY 90 Days #90 tab 06/27/19 08/07/19 Rx tablet,extended release 24 hr Lantus Solostar U-100 Insulin 0 unit SC QAM 08/07/19 08/07/19 History Novolog Flexpen U-100 Insulin 0 units SC UD 08/07/19 08/07/19 History atorvastatin 0 mg PO UD 08/07/19 08/07/19 History Allergies Allergy/AdvReac Type Severity Reaction Status Date / Time Penicillins Allergy Unknown Unverified 08/07/19 13:53 Past Med/Surg History Medical History Diabetes (Chronic) Hypertension (Chronic) Myocardial infarction Surgical History History of heart artery stent Family History Other Family history non-contributory Social History Preferred Language: Uzbek Communication Ability: Effective Iron Assorter Required: No Beliefs That Will Affect Care: None marital status: Current Living Situation: Spouse Feels Safe at Home: Yes Smoking Status: Never smoker Second Hand Exposure: No ; Hx Alcohol Use: No Hx Substance Use: No Review of Systems See HPI for pertinent positives & negatives. and A total of 10 systems reviewed and were otherwise negative Physical Exam Vital Signs Vital Signs - 24 hr 08/07/19 13:42 Temperature 36.8 C Temperature Source Oral Sepsis Recent Fever Within 48 Hours No Sepsis Action Taken by Nursing No Action Required Pulse Rate 85 Pulse Rhythm Regular Pulse Strength Normal Respiratory Rate 16 Respiratory Effort / Characteristics Non-Labored Respiratory Depth Normal Respiratory Pattern Regular Blood Pressure 177/90 H Blood Pressure Mean 119 Blood Pressure Position Lying Pulse Oximetry 93 Oxygen Delivery Method Room Air CONSTITUTIONAL/VITAL SIGNS: Reviewed / noted above. GENERAL: Non-toxic in appearance. INTEGUMENTARY: Warm, dry, and [place]. HEAD: Normocephalic. EYES: without scleral icterus or trauma. ENT/OROPHARYNX: clear and moist. LYMPHADENOPATHY/NECK: Is supple without lymphadenopathy or meningismus. RESPIRATORY: Lungs clear and equal. CARDIOVASCULAR: Regular rate and rhythm. GI/ABDOMEN: Soft and nontender. No organomegaly or pulsatile mass. No rebound or guarding. Normal bowel sounds. EXTREMITIES: Warm and well perfused. Tenderness to palpation of the right shoulder. Distally neurovascularly intact. BACK: No CVA tenderness. No midline tenderness to the C, T, L-spine. NEUROLOGICAL: Intact without focal deficits. PSYCHIATRIC: normal affect. MUSCULOSKELETAL: Normally developed with good muscle tone. TRIAGE NURSING DOCUMENTATION REVIEWED. Course 1425: Past medical records reviewed. The patient was evaluated in room A12B. A complete history and physical exam was performed. 1620: Upon reevaluation, I discussed findings and results with the patient. She verbalized agreement of the treatment plan. I spoke with Dr. Mac of the [facility] Hospitalist Service. The patient will be evaluated for further management and care. Medical Decision Making Differential Diagnosis Differential includes close head injury, intracranial bleed, facial trauma, cervical spine trauma, chest and thoracic trauma, abdominal and intra-abdominal trauma, spine neurologic trauma, extremity trauma. Medical Records Attestation: I reviewed the patient's medical records. Home Medications Current Medication List: was personally reviewed by me Imaging Data Radiologist's Impression: Radiology results as stated below per my review and the radiologist's interpretation: XR shoulder RT min 2V routine CLINICAL HISTORY: fall, pain COMPARISON: None FINDINGS: Note is made of an acute minimally displaced proximal right humeral fracture that involves the humeral head and neck. This extends through the greater tuberosity. Alignment of the right acromioclavicular and glenohumeral joints is anatomic. There are right axillary surgical clips. 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 No right pneumothorax is visualized. IMPRESSION: Acute minimally displaced proximal right humeral fracture that involves the humeral head and neck with extension through the greater tuberosity. Electronically signed by: Isidro Aaron M.D. 08/07/2019 3:09 PM Blood Pressure Blood Pressure Findings: Elevated blood pressure Blood Pressure Disposition: further management by hospitalist MDM Narrative The patient is a 79-year-old female who presents to the ED with a chief complaint of a fall. The patient got up to answer the door and tripped or lost her balance and fell onto her right shoulder. She denies loss of consciousness. Denies any pain other than her right shoulder. Her exam reveals hypertension. She has no obvious trauma to the head. The patient has no palpable tenderness to the neck or back. There is no chest wall tenderness. She does not appear to be in any significant distress. She does have some pain with movement of the right shoulder or palpation of the right shoulder. The rest of her exam was unremarkable for any trauma. She moves all other extremities without discomfort. X-ray of the right arm reveals a minimally displaced right proximal humerus/humeral head fracture. I spoke with Dr. Nix from orthopedics about the patient. This will be placed in an arm sling. This can follow-up as an outpatient and is likely nonsurgical. The patient's family states that she lives with a disabled and is unable to care for herself and he is unable to help her. They are requesting rehab or [facility]p placement. The patient will be seen by the hospitalist for placement at a [facility] for rehab. Impression & Plan Closed fracture of shoulder, Fall Discharge Plan Visit Data Chief Complaint: Fall ED Provider: Patricio King Discharge Problem: Closed fracture of shoulder, Fall Patient Disposition: Being Evaluated by Hospitalist Forms Stand Alone Forms: [facility] Prescriptions Prescriptions: No Action clopidogrel 75 mg tablet 75 mg PO QAM 90 Days Qty: 90 RF: 3 metoprolol succinate 25 mg tablet extended release 24 hr 25 mg PO DAILY 90 Days Qty: 90 RF: 3 lisinopril 10 mg tablet 10 mg PO DAILY 30 Days Qty: 30 RF: 3 acetaminophen [Mapap (acetaminophen)] 325 mg Tablet 650 mg PO Q4H Qty: 60 RF: 0 oxycodone 5 mg capsule 5 mg PO Q8H PRN (Reason: pain) Qty: 20 RF: 0 atorvastatin 40 mg tablet PO UD RF: 0 Novolog Flexpen U-100 Insulin 100 unit/mL insulin pen SC UD RF: 0 Lantus Solostar U-100 Insulin 100 unit/mL (3 mL) insulin pen SC QAM RF: 0 Referrals Referrals: Ben Paula DO [Primary Care Provider] - Discharge Problem: Closed fracture of shoulder Qualifiers: Encounter type: initial encounter Laterality: right Qualified Code(s): S42.91XA - Fracture of right shoulder girdle, part unspecified, initial encounter for closed fracture Fall Qualifiers: Encounter type: initial encounter Qualified Code(s): W19.XXXA - Unspecified fall, initial encounter The marleneibe's documentation has been prepared under my direction and personally reviewed by me in its entirety. I confirm that the note above accurately reflects all work, treatment, procedures, and medical decision making performed by me.
--- NOTE | 2019-08-07 15:11 | XRay Report ---
XR shoulder RT min 2V routine CLINICAL HISTORY: fall, pain COMPARISON: None FINDINGS: Note is made of an acute minimally displaced proximal right humeral fracture that involves the humeral head and neck. This extends through the greater tuberosity. Alignment of the right acrom ioclavicular and glenohumeral joints is anatomic. There are right axillary surgical clips. There is m ild to moderate right shoulder osteoarthritis. No right pneumothorax is visualized. IMPRESSION: Acute minimally displaced proximal right humeral fracture that involves the humeral head and neck with extension through the greater tuberosity. Electronically signed by: Isidro Aaron M.D. 08/07/2019 3:09 PM
[2019-08-07 17:09] LABS: Basophils # (auto) 0.01 K/uL (0-0.2); Basophils % (auto) 0.1 %; Eosinophils # (auto) 0.02 K/uL (0-0.5); Eosinophils % (auto) 0.2 %; Hematocrit (blood only) 39.7 % (37-47); Hemoglobin 13.7 g/dL (12.0-16.0); Immature Granulocytes # (auto) 0.02 K/uL (0.00-0.02); Immature Granulocytes % (auto) 0.2 %; Lymphocytes # (auto) 1.26 K/uL (1.2-3.4); Lymphocytes % (auto) 10.8 %; Mean Corpuscular Hemoglobin 30.6 pg (25-34); Mean Corpuscular Hgb Conc 34.5 g/dL (32-36); Mean Corpuscular Volume 88.6 fL (80-100); Mean Platelet Volume 9.3 fL (7.4-10.4); Monocytes # (auto) 0.72 K/uL (0.11-0.59); Monocytes % (auto) 6.2 %; Neutrophils # (auto) 9.64 K/uL (1.4-6.5); Neutrophils % (auto) 82.5 %; Platelet Count 225 K/uL (130-400); RDW Coefficient of Variation 12.8 % (11.5-14.5); RDW Standard Deviation 41.2 fL (36.4-46.3); Red Blood Count 4.48 M/uL (4.2-5.4); White Blood Count 11.67 K/uL (4.8-10.8)
[2019-08-07 17:29] LABS: BUN Creatinine Ratio 17.1 (10-20); Calcium 8.8 mg/dl (8.5-10.1); Creatinine Clr Calc Pharmacy 60.4 ml/min; Est GFR (African American) 96.4; Est GFR (Non-African American) 83.2; Potassium 4.1 mmol/L (3.5-5.1)
--- NOTE | 2019-08-07 17:49 | History & Physical Report ---
Date of Service August 07, 2019 Assessment & Plan (1) Closed fracture of shoulder: (2) Fall: (3) Hypertension: (4) Diabetes: (5) CAD (coronary artery disease): We will admit the patient under observation. Consult orthopedics. Continue home medications. Add Sliding-scale insulin. Add morphine for pain control. DVT prophylaxis. Case management for discharge planning. History of Present Illness Chief Complaint: Status post fall, right shoulder pain Primary Care Provider: Ben Paula DO The patient is 79 years old female who presented to the ER after history of fall. Patient tripped and fell on the right shoulder and after that she is complaining of right shoulder pain and deformity. Further work-up done in the ER shows that patient has right shoulder fracture. Orthopedics was notified who advised conservative management. Patient and the family wants her to be placed to rehab. She will be admitted and observation for further evaluation & management. No loss of consciousness . No head injury. No chest pain or shortness of breath. Allergies Allergy/AdvReac Type Severity Reaction Status Date / Time Penicillins Allergy Unknown Unverified 08/07/19 13:53 Home Medications Home Medications Medication Instructions Recorded Confirmed Type acetaminophen [Mapap 650 mg PO Q4H #60 tab 11/11/18 08/07/19 Rx (acetaminophen)] oxycodone 5 mg PO Q8H PRN #20 cap 11/11/18 08/07/19 Rx lisinopril 10 mg tablet 10 mg PO DAILY 30 Days #30 tab 06/26/19 08/07/19 Rx clopidogrel 75 mg tablet 75 mg PO QAM 90 Days #90 tab 06/27/19 08/07/19 Rx metoprolol succinate ER 25 mg 25 mg PO DAILY 90 Days #90 tab 06/27/19 08/07/19 Rx tablet,extended release 24 hr Lantus Solostar U-100 Insulin 0 unit SC QAM 08/07/19 08/07/19 History Novolog Flexpen U-100 Insulin 0 units SC UD 08/07/19 08/07/19 History atorvastatin 0 mg PO UD 08/07/19 08/07/19 History Past Med/Surg History Medical History Diabetes (Chronic) Hypertension (Chronic) Myocardial infarction Surgical History History of heart artery stent Family History Other Family history non-contributory Social History Preferred Language: Moroccan Communication Ability: Effective Planer Off Bearer Required: No Beliefs That Will Affect Care: None marital status: Current Living Situation: Spouse Other Information That Helps Us Care for You: No Feels Safe at Home: Yes Safety Concerns: Feels Safe At This Time Smoking Status: Never smoker Second Hand Exposure: No ; Hx Alcohol Use: No Hx Substance Use: No Review of Systems Review of Systems: All systems reviewed & are unremarkable except as noted in HPI & below Musculoskeletal: + deformity Physical Exam Physical Exam: GENERAL : No acute distress EYES: No icterus, gaze conjugate NOSE: No evidence of epistaxis MOUTH: No lesions or candidiasis, mucosa moist NECK: Supple LUNGS: CTA B/L, no wheezes, rales or rhonchi HEART: Regular, rate controlled ABDOMEN: Soft, NT, ND, BS Present EXTREMITIES: No LE edema, pedal pulses intact Right upper extremity in sling NEURO: A&OX3 Results & Data Vital Signs (Past 12 Hours) Vital Signs Temp Pulse Resp BP Pulse Ox 08/07/19 16:47 90 16 135/79 08/07/19 16:00 86 21 08/07/19 15:01 74 16 151/103 H 98 08/07/19 15:00 80 23 97 08/07/19 14:30 78 16 156/89 H 98 08/07/19 14:01 75 17 148/78 H 97 08/07/19 14:00 77 11 L 97 08/07/19 13:45 79 15 97 08/07/19 13:42 98.2 F 85 16 177/90 H 93 08/07/19 13:40 81 15 177/90 H 97 Laboratory Results 08/07/19 16:47 08/07/19 16:47 08/07/19 08/07/19 Range/Units 16:47 16:47 WBC 11.67 H (4.8-10.8) K/uL RBC 4.48 (4.2-5.4) M/uL Hgb 13.7 (12.0-16.0) g/dL Hct 39.7 (37-47) % MCV 88.6 (80-100) fL MCH 30.6 (25-34) pg MCHC 34.5 (32-36) g/dL RDW Std Deviation 41.2 (36.4-46.3) fL RDW Coeff of Parviz 12.8 (11.5-14.5) % Plt Count 225 (130-400) K/uL MPV 9.3 (7.4-10.4) fL Immature Gran % (Auto) 0.2 % Neut % (Auto) 82.5 % Lymph % (Auto) 10.8 % Bourbon % (Auto) 6.2 % Eos % (Auto) 0.2 % Baso % (Auto) 0.1 % Immature Gran # (Auto) 0.02 (0.00-0.02) K/uL Neut # (Auto) 9.64 H (1.4-6.5) K/uL Lymph # (Auto) 1.26 (1.2-3.4) K/uL Bourbon # (Auto) 0.72 H (0.11-0.59) K/uL Eos # (Auto) 0.02 (0-0.5) K/uL Baso # (Auto) 0.01 (0-0.2) K/uL Sodium 137 (136-145) mmol/L Potassium 4.1 (3.5-5.1) mmol/L Chloride 104 (98-107) mmol/L Carbon Dioxide 25 (21-32) mmol/L Anion Gap 8.0 (3-11) BUN 12 (7-18) mg/dl Creatinine 0.68 (0.6-1.2) mg/dl Est Cr Clr Drug Dosing 60.4 ml/min Est GFR ( Amer) 96.4 Est GFR (Non-Af Amer) 83.2 BUN/Creatinine Ratio 17.1 (10-20) Glucose 299 H (70-99) mg/dl Calcium 8.8 (8.5-10.1) mg/dl Diagnostic Findings XR shoulder RT min 2V routine CLINICAL HISTORY: fall, pain COMPARISON: None FINDINGS: Note is made of an acute minimally displaced proximal right humeral fracture that involves the humeral head and neck. This extends through the greater tuberosity. Alignment of the right acromioclavicular and glenohumeral joints is anatomic. There are right axillary surgical clips. 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 No right pneumothorax is visualized. IMPRESSION: Acute minimally displaced proximal right humeral fracture that involves the humeral head and neck with extension through the greater tuberosity. Code Status & VTE Plan Code Status Full code PG Care Time/CCT Total # of Minutes Spent Total Time Spent with Patient: Total time spent is greater than 50% in coordination of care (as documented) at patient's floor/unit and/or counseling patient:60 min (1) Closed fracture of shoulder Encounter type: initial encounter Laterality: right Qualified Code(s): S42.91XA - Fracture of right shoulder girdle, part unspecified, initial encounter for closed fracture (2) Fall Encounter type: initial encounter Qualified Code(s): W19.XXXA - Unspecified fall, initial encounter (3) Hypertension Hypertension type: essential hypertension Qualified Code(s): I10 - Essential (primary) hypertension (4) Diabetes Diabetes mellitus type: type 2 Diabetes mellitus snf insulin use: with curriculum consultant use Diabetes mellitus complication status: without complication Qualified Code(s): E11.9 - Type 2 diabetes mellitus without complications; Z79.4 - intermediate (current) use of insulin
[2019-08-07] MEDS ORDERED: ALUMINUM/MAGNESIUM SUSP 30 ML UDC PO PRN (18:06)
[2019-08-07] MEDS ORDERED: MAGNESIUM HYDROXIDE SUSP 30 ML UDC PO PRN (18:06)
[2019-08-07] MEDS ORDERED: POLYETHYLENE (MIRALAX) 17 GM PACK PO PRN (18:06)
[2019-08-07] MEDS ORDERED: OXYCODONE HCL IR 5 MG TAB (IMMEDIATE RELEASE) PO PRN (18:06)
[2019-08-07] MEDS ORDERED: INSULIN ASPART 100 UNITS/ML 3 ML PEN SC SCH (18:06)
[2019-08-07] MEDS ORDERED: ACETAMINOPHEN 325 MG TAB PO PRN (18:06)
[2019-08-07] MEDS ORDERED: ACETAMINOPHEN 325 MG TAB PO SCH (18:06)
[2019-08-07] MEDS ORDERED: ONDANSETRON INJ 2 MG/ML 2 ML VIAL IV PRN (18:06)
[2019-08-07] MEDS ORDERED: ZOLPIDEM TARTRATE 5 MG TAB PO PRN (18:06)
[2019-08-07] MEDS ORDERED: HYDROmorphone HCL 2 MG TAB PO PRN (18:06)
[2019-08-07] MEDS ORDERED: GLUCOSE 10 TABS/TUBE PO PRN (19:45)
[2019-08-07] MEDS ORDERED: DEXTROSE 50% 50 ML SYRINGE IV PRN (19:45)
[2019-08-07] MEDS ORDERED: GLUCAGON FOR INJ 1 MG VIAL IM PRN (19:45)
[2019-08-07] MEDS ORDERED: CARBOHYDRATES FOR HYPOGLYCEMIA PO PRN (19:45)
[2019-08-07] MEDS ORDERED: GLUCOSE 40% GEL 15 GM TUBE PO PRN (19:45)
[2019-08-07] MEDS: INSULIN GLARGINE SOLOSTAR 100 UNITS/ML 3 ML PEN SC SCH (21:29)
[2019-08-07] MEDS: INSULIN ASPART 100 UNITS/ML 3 ML PEN SC SCH (21:31)
[2019-08-08 06:30] LABS: BUN Creatinine Ratio 18.7 (10-20); Calcium 8.8 mg/dl (8.5-10.1); Creatinine Clr Calc Pharmacy 62.2 ml/min; Est GFR (African American) 97.4
--- NOTE | 2019-08-08 08:42 | Hospitalist Progress Note ---
Date of Service August 08, 2019 Assessment & Plan (1) Closed fracture of shoulder: Dr. King in ED spoke with Dr. Nix from orthopedics about the patient following imaging of her shoulder. Per his note:Keep arm in sling. This can follow-up as an outpatient and is likely nonsurgical. Pain control (2) Fall: mechanical fall PT/OT (3) Hypertension: Continue lisinopril, metoprolol (4) Diabetes: Continue insulin, bsgs ac & hs (5) CAD (coronary artery disease): continue clopidegral, metoprolol (6) DVT prophylaxis: heparin subq, scds Dispo: patient's insurance company is closed for the weekend, PT/OT evals Subjective Ms. Lu has some pain at her shoulder fracture but is otherwise feeling well with no complaints. No numbness or paresthesia distal to fracture. ROS Constitutional: no chills, aches, sweats or fever Respiratory: no sob,cough, sputum, or wheezing Cardiac: no chest pain, palpitations, edema, orthopnea or lightheadedness GI: no abdominal pain, nausea, vomiting, diarrhea or constipation : no dysuria or hesitancy Extremities: see HPI Skin: no rash All other systems reviewed and negative Physical Exam Physical Exam: General: no distress Eyes: normal inspection, PERLL Respiratory: chest non tender, clear to auscultation, normal breath sounds, no respiratory distress, no accessory muscle use Cardiac: regular rate and rhythm, no rub or gallop, no murmur, no edema, no jvd GI/: active bowel sounds, no abd pain or tenderness, soft, non distended Extremities: right hand warm, no pain in other joints Neuro/Psych: alert and oriented x 3, normal mood and affect Skin: normal color, dry Results & Data Vital Signs (Past 12 Hours) Vital Signs Temp Pulse Pulse Resp BP Pulse Ox 08/08/19 08:00 36.9 C 86 20 126/82 97 08/07/19 23:12 37.1 C 84 17 146/77 H 95 PG Care Time/CCT Total # of Minutes Spent Total Time Spent with Patient: Total time spent is greater than 50% in property coordinator rdination of care (as documented) at patient's floor/unit and/or counseling patient: (1) Diabetes Diabetes mellitus complication status: without complication Diabetes mellitus shelter insulin use: with marine oil terminal superintendent use Diabetes mellitus type: type 2 Qualified Code(s): E11.9 - Type 2 diabetes mellitus without complications; Z79.4 - continuous churn buttermaker (current) use of insulin (2) Closed fracture of shoulder Encounter type: initial encounter Laterality: right Qualified Code(s): S42.91XA - Fracture of right shoulder girdle, part unspecified, initial encounter for closed fracture (3) Hypertension Hypertension type: essential hypertension Qualified Code(s): I10 - Essential (primary) hypertension (4) Fall Encounter type: initial encounter Qualified Code(s): W19.XXXA - Unspecified fall, initial encounter
[2019-08-08] MEDS: ATORVASTATIN 40 MG TAB PO SCH (08:51)
[2019-08-08] MEDS: CLOPIDOGREL BISULFATE 75 MG TAB PO SCH (08:52)
[2019-08-08] MEDS: lisinopriL 10 MG TAB PO SCH (08:52)
[2019-08-08] MEDS: METOPROLOL SUCC 25MG EXT REL TAB PO SCH (08:52)
[2019-08-08] MEDS: INSULIN ASPART 100 UNITS/ML 3 ML PEN SC SCH ×4 (09:57→20:40)
[2019-08-08] MEDS ORDERED: Nursing to Pharmacy Communication ONE (14:27)
[2019-08-08] MEDS: ACETAMINOPHEN SOL 650 MG/20.3 ML UDC PO PRN (19:56)
[2019-08-08] MEDS: HEPARIN SOD 5,000 UNIT/0.5 ML VIAL SQ SCH (20:41)
[2019-08-08] MEDS: INSULIN GLARGINE SOLOSTAR 100 UNITS/ML 3 ML PEN SC SCH (20:42)
[2019-08-09] MEDS: ATORVASTATIN 40 MG TAB PO SCH (08:44)
[2019-08-09] MEDS: lisinopriL 10 MG TAB PO SCH (08:44)
[2019-08-09] MEDS: CLOPIDOGREL BISULFATE 75 MG TAB PO SCH (08:44)
[2019-08-09] MEDS: METOPROLOL SUCC 25MG EXT REL TAB PO SCH (08:44)
[2019-08-09] MEDS: INSULIN ASPART 100 UNITS/ML 3 ML PEN SC SCH ×4 (09:24→21:19)
[2019-08-09] MEDS ORDERED: PHARMACY GLYCEMIC MGMT CONSULT PRN (09:31)
[2019-08-09] MEDS: HEPARIN SOD 5,000 UNIT/0.5 ML VIAL SQ SCH ×2 (09:38→21:19)
--- NOTE | 2019-08-09 12:14 | Hospitalist Progress Note ---
Date of Service August 09, 2019 Assessment & Plan (1) Closed fracture of shoulder: Dr. King in ED spoke with Dr. Nix from orthopedics about the patient following imaging of her shoulder. Per his note:Keep arm in sling. This can follow-up as an outpatient and is likely nonsurgical. Pain control (2) Fall: mechanical fall PT/OT (3) Hypertension: Continue lisinopril, metoprolol (4) Diabetes: Continue insulin, bsgs ac & hs Hyperglycemic - glycemic pharmacist consult Most recent A1c was 11.6 02/27/19 (5) CAD (coronary artery disease): continue clopidegral, metoprolol (6) DVT prophylaxis: heparin subq, scds Dispo: patient's insurance company is closed for the weekend but will likely need placment, PT/OT evals Subjective Ms. Lu's pain is controlled in her shoulder. She has no complaints ROS Constitutional: no chills, aches, sweats or fever Respiratory: no sob,cough, sputum, or wheezing Cardiac: no chest pain, palpitations, edema, orthopnea or lightheadedness GI: no abdominal pain, nausea, vomiting, diarrhea or constipation : no dysuria or hesitancy Extremities: no joint pain or weakness Skin: no rash All other systems reviewed and negative Physical Exam Physical Exam: General: no distress Eyes: normal inspection, PERLL Respiratory: chest non tender, clear to auscultation, normal breath sounds, no respiratory distress, no accessory muscle use Cardiac: regular rate and rhythm, no rub or gallop, no murmur, no edema, no jvd GI/: active bowel sounds, no abd pain or tenderness, soft, non distended Extremities: equal hand grasp, normal strength, non tender Neuro/Psych: alert and oriented x 3, normal mood and affect Skin: normal color, dry Results & Data Vital Signs (Past 12 Hours) Vital Signs Temp Pulse Resp BP Pulse Ox 08/09/19 08:00 36.6 C 75 18 128/71 94 PG Care Time/CCT Total # of Minutes Spent Total Time Spent with Patient: Total time spent is greater than 50% in coordinat ion of care (as documented) at patient's floor/unit and/or counseling patient: (1) Closed fracture of shoulder Encounter type: initial encounter Laterality: right Qualified Code(s): S42.91XA - Fracture of right shoulder girdle, part unspecified, initial encounter for closed fracture (2) Fall Encounter type: initial encounter Qualified Code(s): W19.XXXA - Unspecified fall, initial encounter (3) Hypertension Hypertension type: essential hypertension Qualified Code(s): I10 - Essential (primary) hypertension (4) Diabetes Diabetes mellitus type: type 2 Diabetes mellitus long goods drier insulin use: with prison use Diabetes mellitus complication status: without complication Qualified Code(s): E11.9 - Type 2 diabetes mellitus without complications; Z79.4 - intermodal truck driver (current) use of insulin
--- NOTE | 2019-08-09 15:09 | Pharmacy Report ---
Pharmacy Glycemic Short Note 2 - Date of Service August 09, 2019 - Glycemic Short BSG Results (Last 24 hours): 08/08/19 08/08/19 08/09/19 17:20 20:15 08:41 POC Glucose 220 H 227 H 165 H 08/09/19 12:30 POC Glucose 213 H OUTPATIENT ANTIDIABETIC REGIMEN: * Lantus 20 units SQ daily + Novolog SSI * A1c pending (most recent A1c of 11.6% from February 2019) ASSESSMENT: * Precious is a 79 yr old female admitted with a closed right humerus fracture s/p fall * She is known to the Pharmacy Glycemic service from previous admissions. During her October 2018 admission she received 70-80 units of insulin per day with BSGs ranging from 160 - 258 mg/dL (majority were > 200 mg/dL). She typically requires very tight carb coverage. * Fasting BSG of 165 mg/dL is above goal but significantly improved compared to 08/08, therefore I will only slightly increase Lantus. * Post prandial BSGs are all elevated, therefore I will tighten Novolog CF and CR. PLAN FOR INPATIENT GLYCEMIC CONTROL: * Basal insulin * Lantus 20-25 units SQ qPM (25 units for BSG of 160 mg/dL or more) * Bolus insulin * NovoLog per scale ACHS or Q6hrs while NPO * Goal Range: Low 110 mg/dL - High 140 mg/dL * Correction Factor: 20 mg/dL/unit * Nutritional / Prandial insulin per carb ratio of 1 unit per 4 grams CHO consumed PLAN FOR DISCHARGE: * A1c pending
[2019-08-09] MEDS ORDERED: INSULIN GLARGINE SOLOSTAR 100 UNITS/ML 3 ML PEN SC SCH (21:00)
[2019-08-10 08:10] LABS: Estimated Average Glucose 258 mg/dl; Hemoglobin A1C 10.6 % (4.5-5.6)
[2019-08-10] MEDS: HEPARIN SOD 5,000 UNIT/0.5 ML VIAL SQ SCH (08:20)
[2019-08-10] MEDS: INSULIN ASPART 100 UNITS/ML 3 ML PEN SC SCH ×2 (08:20→12:45)
[2019-08-10] MEDS: METOPROLOL SUCC 25MG EXT REL TAB PO SCH (08:21)
[2019-08-10] MEDS: ATORVASTATIN 40 MG TAB PO SCH (08:21)
[2019-08-10] MEDS: lisinopriL 10 MG TAB PO SCH (08:21)
[2019-08-10] MEDS: CLOPIDOGREL BISULFATE 75 MG TAB PO SCH (08:21)
[2019-08-10] MEDS: ACETAMINOPHEN SOL 650 MG/20.3 ML UDC PO PRN (08:25)
[2019-08-10] MEDS ORDERED: ASPIRIN 81 MG ECTAB PO STA (09:52)
[2019-08-10] MEDS ORDERED: ATORVASTATIN 40 MG TAB PO ONE (09:52)
--- NOTE | 2019-08-10 10:25 | Pharmacy Report ---
Pharmacy Glycemic Short Note 2 - Date of Service August 10, 2019 - Glycemic Short BSG Results (Last 24 hours): 08/09/19 08/09/19 08/09/19 12:30 17:24 20:52 POC Glucose 213 H 186 H 202 H 08/10/19 08:05 POC Glucose 183 H OUTPATIENT ANTIDIABETIC REGIMEN: * Lantus 20 units SQ daily + Novolog SSI * A1c 10.6% on 08/10/19 (most recent A1c of 11.6% from February 2019) ASSESSMENT: 08/10 * Patient rec'd 59 units of insulin yesterday (25 of this being basal, that was just increased last night) * Fasting BSG has increased this AM, with additional basal on board, so will provide additional at lunch if it still remains high. Otherwise, will provide a scale for tonight's dose. * Postprandial BSGs are still elevated but improved. Anticipate further improvement with more basal on board. 08/09 * Precious is a 79 yr old female admitted with a closed right humerus fracture s/p fall * She is known to the Pharmacy Glycemic service from previous admissions. During her October 2018 admission she received 70-80 units of insulin per day with BSGs ranging from 160 - 258 mg/dL (majority were > 200 mg/dL). She typically requires very tight carb coverage. * Fasting BSG of 165 mg/dL is above goal but significantly improved compared to 08/08, therefore I will only slightly increase Lantus. * Post prandial BSGs are all elevated, therefore I will tighten Novolog CF and CR. PLAN FOR INPATIENT GLYCEMIC CONTROL: * Basal insulin * Additional Lantus 5 units x 1 at lunch * Lantus qPM per the following scale: * 20 units for BSG < 160 * 25 units for BSG 160 or above * Bolus insulin * NovoLog per scale ACHS or Q6hrs while NPO * Goal Range: Low 110 mg/dL - High 140 mg/dL * Correction Factor: 20 mg/dL/unit * Nutritional / Prandial insulin per carb ratio of 1 unit per 4 grams CHO consumed PLAN FOR DISCHARGE: * A1c = 10.6% on 08/10/19 * Goal A1c < 8% for age/comorbidities * Patient most likely needs increase in basal + bolus coverage. Will plan to provide more concrete recommendations prior to discharge. * Update: CDE reports that patient does NOT take Humalog and only takes Lantus 10 units, instead of 20 units that is prescribed for fear of going low. However, BSGs, when she does check are in the 200s. > 1/day dosing of insulin sounds like it might be difficult for her at home. * Recommend: Lantus 30 units once daily and monitor BSGs more frequently to determine if short-acting is needed in addition
--- NOTE | 2019-08-10 11:53 | Discharge Summary ---
Date of Service August 10, 2019 Admission HPI Per Admitting Provider The patient is 79 years old female who presented to the ER after history of fall. Patient tripped and fell on the right shoulder and after that she is complaining of right shoulder pain and deformity. Further work-up done in the ER shows that patient has right shoulder fracture. Orthopedics was notified who advised conservative management. Patient and the family wants her to be placed to rehab. She will be admitted and observation for further evaluation & management. No loss of consciousness . No head injury. No chest pain or shortness of breath. Principal Diagnosis Right proximal humerus fracture Discharge Exam Constitutional WD/WN, vitals as above Eyes + anicteric sclerae ENMT external ear and nose normal, oropharynx normal Neck trachea midline, no thyromegaly Respiratory normal respiratory effort, lungs clear to auscultation Cardiovascular RRR, no murmur, no edema Gastrointestinal (Abdomen) normal bowel sounds, soft, nontender, no hepatosplenomegaly Musculoskeletal Extremities: + extremities abnormal to inspection (Right upper extremity in shoulder sling, no tenderness to palpation over the proximal humerus), no cyanosis and no clubbing Neurovascularly intact distal to the fracture on the right upper extremity Skin no rashes, warm and dry Neurologic moves all extremities and awake; no focal motor deficits Psychiatric Orientation: alert, oriented to person, oriented to place and cooperative Discharge Data Allergies Allergy/AdvReac Type Severity Reaction Status Date / Time Penicillins Allergy Unknown Unverified 08/07/19 13:53 Consultations None Procedures Performed None Ordered Studies Right shoulder x-ray Hospital Course (1) Closed fracture of shoulder: Dr. King in ED spoke with Dr. Nix from orthopedics about the patient following imaging of her shoulder. Per his note:Keep arm in sling. This can follow-up as an outpatient and is likely nonsurgical. Pain control with Tylenol as needed No use of right upper extremity until seen by orthopedics Was a mechanical fall (2) Fall: mechanical fall PT/OT recommending [facility] (3) Hypertension: Controlled Continue lisinopril, metoprolol (4) Diabetes: Uncontrolled, question of compliance at home-patient has no idea what insulin she takes at home and states that she does her own medications This is very concerning Continue basal and bolus insulin, bsgs ac & hs Most recent A1c was 11.6 02/27/19 and then down to 10.6% recently (5) CAD (coronary artery disease): Status post anterior [place] 02/2019-status post PCI with KALA to mid LAD No chest pain here or signs of unstable angina Patient had no idea who her painter ordnance was or what medications she was taking, but yet notes that she manages her own medications. She does not recall taking aspirin or Plavix at all at home which is quite concerning given that she has a stent in her mid LAD -Restarted aspirin 81 mg daily, clopidogrel 75 mg daily, continue metoprolol succinate 25 mg once daily and lisinopril 10 mg once daily, continue statin Should have follow-up with cardiology routinely (6) DVT prophylaxis: heparin subq, scds were provided She does have a history of chronic PE and was previously treated with anticoagulation but is now not on that Dispo: Stable for discharge to [facility] Total Time Total Time Spent Total Time Spent (In Minutes): Greater than 30 minutes Total Time Includes: Examination of the Patient, Discharge Planning and Medication Reconciliation Discharge Plan Discharge Items Patient Disposition: [facility] Reason For Visit: RIGHT HUMERUS FRACTURE Discharge Diagnosis: Right humerus fracture Condition on Discharge: Good Activity: As commented below Lifting: None Lifting Comment: No lifting on the right Bathing: No limitations Exercise Comment: No use of right upper extremity until cleared by orthopedics Non-emergency contact: Primary Care Provider and Surgeon Call non-emergency contact if: you have any medication questions, your symptoms worsen and your pain is not controlled Follow-up/Referrals: Ben Paula DO [Primary Care Provider] - Jesus Nix MD [Physician] - (Please call for an appointment within 1 to 2 weeks after discharge ) Diet: Carb Consistent or DM2 Addtl Attending Provider Instructions: Mrs. Lu was admitted after a mechanical fall resulting in a right proximal humerus fracture. Orthopedics was contacted over the phone by the ER physician and recommended conservative management and outpatient follow-up. She will need placement in a [place] [facility]. Please have her follow-up with the orthopedic surgeon within 1 to 2 weeks after discharge. She should keep her right upper extremity in a shoulder sling until that time. Of note, the patient was unaware of any of the medications that she is supposed to be taking including her dual antiplatelet therapy for her recent heart stent. Please ensure that she has all new prescriptions for all medications prescribed upon discharge from the [facility] to home. Pending Studies at Discharge: No Stand-Alone Forms: My [facility] Skilled Items Patient informed of condition?: Yes DNR: No Discharge Level of Care: Skilled Communicable Disease: No Discharge Prognosis: Stable Lines: None Urinary Catheter: No Medications and DC Order Prescriptions: New aspirin [Ecotrin Low Strength] 81 mg Tablet,Delayed Release (Dr/Ec) 81 mg PO QAM Qty: 30 RF: 0 Continued clopidogrel 75 mg tablet 75 mg PO QAM 90 Days Qty: 90 RF: 3 metoprolol succinate 25 mg tablet extended release 24 hr 25 mg PO DAILY 90 Days Qty: 90 RF: 3 lisinopril 10 mg tablet 10 mg PO DAILY 30 Days Qty: 30 RF: 3 atorvastatin 40 mg tablet 80 mg PO DAILY RF: 0 Changed acetaminophen [Mapap (acetaminophen)] 325 mg Tablet 650 mg PO Q4H PRN (Reason: pain) Qty: 60 RF: 0 Lantus Solostar U-100 Insulin 100 unit/mL (3 mL) insulin pen 25 unit SC QPM Qty: 0 RF: 0 Novolog Flexpen U-100 Insulin 100 unit/mL insulin pen See Rx Instructions .ROUTE .COMPLEX Qty: 15 RF: 0 Discontinued oxycodone 5 mg capsule 5 mg PO Q8H PRN (Reason: pain) Qty: 20 RF: 0 Discharge Orders: Discharge Order (Routine); Ordered 08/10/19 Ordered By: Maryam Sahni Admission Data Admit Date/Time: 08/08/19 11:49 Attending Provider: Maryam Sahni Admit Provider: Thuan Mac Primary Care Provider: Ben Paula Other Providers: Raimundo Rob ; Saurav Smith
[2019-08-10] MEDS ORDERED: INSULIN GLARGINE SOLOSTAR 100 UNITS/ML 3 ML PEN SC ONE (12:45)
[2019-08-11] MEDS ORDERED: ATORVASTATIN 40 MG TAB PO SCH (09:00)
[2019-08-11] MEDS ORDERED: ASPIRIN 81 MG ECTAB PO SCH (09:00)
== END 2019-08-10 17:47 | DRG 563 ==
LOC: ED 13:32 → 3W 13:32 → SUATTDRO 16:51 → 3W 17:45 → SUATTDRO 08-08 11:49

== ENCOUNTER 2021-08-17 10:26 | Inpatient (IN) ==
[2021-08-17 11:34] LABS: Basophils # (auto) 0.01 K/uL (0-0.2); Basophils % (auto) 0.1 %; Eosinophils # (auto) 0.11 K/uL (0-0.5); Eosinophils % (auto) 1.4 %; Hematocrit (blood only) 39.2 % (37-47); Hemoglobin 13.2 g/dL (12.0-16.0); Immature Granulocytes # (auto) 0.01 K/uL (0.00-0.02); Immature Granulocytes % (auto) 0.1 %; Lymphocytes # (auto) 1.59 K/uL (1.2-3.4); Lymphocytes % (auto) 20.1 %; Mean Corpuscular Hemoglobin 30.5 pg (25-34); Mean Corpuscular Hgb Conc 33.7 g/dL (32-36); Mean Corpuscular Volume 90.5 fL (80-100); Mean Platelet Volume 9.7 fL (7.4-10.4); Monocytes # (auto) 0.77 K/uL (0.11-0.59); Monocytes % (auto) 9.7 %; Neutrophils # (auto) 5.43 K/uL (1.4-6.5); Neutrophils % (auto) 68.6 %; Platelet Count 230 K/uL (130-400); RDW Coefficient of Variation 13.8 % (11.5-14.5); RDW Standard Deviation 46.4 fL (36.4-46.3); Red Blood Count 4.33 M/uL (4.2-5.4); White Blood Count 7.92 K/uL (4.8-10.8)
[2021-08-17 11:57] LABS: Albumin Level 3.1 gm/dl (3.4-5.0); BUN Creatinine Ratio 18.5 (10-20); Calcium 8.9 mg/dl (8.5-10.1); Creatinine Clr Calc Pharmacy 46.2 ml/min; Est GFR (African American) 73.4 ml/min; Est GFR (Non-African American) 63.4 ml/min; Potassium 3.8 mmol/L (3.5-5.1)
[2021-08-17 12:07] LABS: Albumin Globulin Ratio 0.7 (0.9-2); Bilirubin,Total 1.8 mg/dl (0.2-1); Globulin 4.2 gm/dl (2.5-4.0); Thyroid Stimulating Hormone 1.6 uIu/ml (0.300-4.500); Total Protein 7.3 gm/dl (6.4-8.2)
--- NOTE | 2021-08-17 12:16 | Emergency Department Note ---
Impression & Plan Closed fracture of left hip, Acute pain of left lower extremity, Fall ED Provider Note INFORMANT: Patient ED PROVIDER(S): Darryl Chawla MD CHIEF COMPLAINT: Left leg pain PLAN: Disposition: Admitted Condition: Good Outpatient prescription management: none Referral: None MEDICAL DECISION MAKING: Patient presented because of a fall. She had left leg pain. She was tender in the left knee and left hip. Femur x-ray was performed and she was found to have a left hip fracture. Knee joint effusion noted but no fracture of the distal femur. She was given IV Tylenol. Patient initially declined analgesia. She had an unremarkable chest x-ray. ECG did not reveal any acute findings. Patient's labs are unremarkable. Consultation was made with the hospitalist service as the patient will need to be admitted, medically cleared and have orthopedic consultation. Patient and family updated. Triage Nursing notes reviewed and agree them. Vital Signs: reviewed and remarkable for no significant abnormalities Differential diagnosis: Fracture, dislocation, neurovascular compromise, compartment syndrome, soft tissue injury, as well as other pathologies. Diagnostics interpreted by me: ECG: Twelve-lead ECG reveals a normal sinus rhythm at 88 bpm. Low voltage QRS. No ST elevation or depression. No PACs or PVCs. Cardiac Monitoring: Cardiac monitoring ordered by me: The patient was placed on continuous cardiac monitoring and observed. It revealed a normal sinus rhythm at 74 beats per minute without ectopy or evidence of dysrhythmia. Imaging studies: X-rays as noted below. I refer you to the EMR for further details. HPI: The patient is a 81 year old female who presents to the Emergency Room with complaints of left leg pain. This started just prior to arrival and is from a fall. The patient also notes the following associated symptoms, left knee pain. The patient has been given no medication for relieving factors. Current pain is rated as 4/10. Patient denies hitting her head or suffering any other injury. She tripped and this was an accidental fall. Patient has been in good health recently. Pt denies LOC, headache, fevers, chills, diaphoresis, visual changes, neck pain, chest pain, breathing difficulties, nausea, vomiting, abdominal pain, back pain, melena, hematochezia, urinary symptoms, numbness, weakness, lymphadenopathy, rash, or other complaints. ROS: See above HPI for pertinent positives & negatives. A total of 10 systems reviewed and were otherwise negative. PAST MEDICAL HISTORY:See Below , coronary artery disease, hypertension PAST SURGICAL HISTORY:See Below, FAMILY HISTORY:See Below SOCIAL HISTORY:See Below, HOME MEDICATIONS:See Below ALLERGIES:See Below VITALS:See Below PHYSICAL EXAMINATION: GENERAL: Awake, alert, mildly uncomfortable-appearing, in no distress HENT: Normocephalic, atraumatic. Oropharynx unremarkable. EYES: Normal conjunctiva. Sclera non-icteric. NECK: Inspection normal. Non-tender. Supple. No nuchal rigidity. FROM. No masses. RESPIRATORY: Clear to auscultation. No wheezes. No rales. Normal respiratory effort. CARDIAC: Normal rate. Normal rhythm. No murmurs. No rubs. Extremities warm and well perfused. Pulses equal. No JVD. GI: Soft, non-distended. No tenderness to palpation. No rebound or guarding. No masses. RECTAL: Deferred. MUSCULOSKELETAL: Atraumatic. Chest examination reveals no tenderness. The back is symmetrical on inspection without obvious abnormality. There is no CVA tenderness to palpation. Left knee joint edema. Left knee tenderness to palpation. Left hip tenderness to palpation. Calves are equal size bilaterally and non-tender. No discoloration. NEURO: Normal sensorium. No sensory or motor deficits noted. SKIN: No rash or jaundice noted. Darryl Chawla MD Past Med/Surg History Medical History (Updated 08/17/21 @ 16:43 by Darryl Chawla MD) Diabetes Hypertension Myocardial infarction Surgical History History of heart artery stent Family History Other Family history non-contributory Social History (Updated 08/17/21 @ 15:54 by Li Tamayo MD) Smoking Status: Former smoker Second Hand Exposure: No; Hx Alcohol Use: No Hx Substance Use: No Preferred Language: Mohawk Communication Ability: Effective Grinder Needle Tip Required: No Beliefs That Will Affect Care: None marital status: Current Living Situation: Spouse How many Children do You have: 3 Feels Safe at Home: Yes Assistive Devices: None Allergies Allergies Allergy/AdvReac Type Severity Reaction Status Date / Time Penicillins Allergy Unknown Verified 08/17/21 11:28 Home Meds Home Medications Medication Instructions Recorded Confirmed insulin glargine 100 unit/mL (3 20 unit SC QPM 08/17/21 08/17/21 mL) subcutaneous pen (Lantus Solostar U-100 Insulin) Previous Rx's Medication Instructions Recorded acetaminophen 325 mg tablet (Mapap 650 mg PO Q4H PRN #60 tab 08/10/19 (acetaminophen)) aspirin 81 mg tablet,delayed 81 mg PO QAM #30 tab 08/10/19 release (Ecotrin Low Strength) lisinopril 10 mg tablet 10 mg PO DAILY #90 tab 08/23/20 atorvastatin 40 mg tablet 80 mg PO DAILY #180 tab 09/01/20 metoprolol succinate 25 mg 25 mg PO DAILY #90 tab 09/01/20 tablet,extended release 24 hr Results & Data (ED) Vital Signs Vital Signs - 24 hr 08/17/21 10:33 08/17/21 10:42 08/17/21 11:00 Temperature 36.9 C Temperature Source Oral Pulse Rate 80 91 H 91 H Pulse Rate [Left] Pulse Rate from SpO2 Sensor Pulse Rhythm [Left] Pulse Strength [Left] Respiratory Rate 18 16 17 Respiratory Effort / Characteristics Respiratory Depth Blood Pressure 155/92 H 145/80 H Blood Pressure [Right Arm] Blood Pressure Mean 113 101 Blood Pressure Mean [Right Arm] Blood Pressure Position [Right Arm] Pulse Oximetry 98 92 92 Oxygen Delivery Method Room Air Room Air Oxygen Flow Rate Sepsis Recent Fever Within 48 Hours No Sepsis New/Unexplained Change in Mental Status No Sepsis Action Taken by Nursing No Action Required 08/17/21 11:27 08/17/21 11:28 08/17/21 11:30 Temperature Temperature Source Pulse Rate 86 Pulse Rate [Left] 87 Pulse Rate from SpO2 Sensor Pulse Rhythm [Left] Regular Pulse Strength [Left] Normal Respiratory Rate 16 16 Respiratory Effort / Characteristics Non-Labored Respiratory Depth Normal Blood Pressure 143/81 H Blood Pressure [Right Arm] 145/80 H Blood Pressure Mean 101 Blood Pressure Mean [Right Arm] 101 Blood Pressure Position [Right Arm] Lying Pulse Oximetry 94 94 91 Oxygen Delivery Method Room Air Room Air Room Air Oxygen Flow Rate Sepsis Recent Fever Within 48 Hours Sepsis New/Unexplained Change in Mental Status Sepsis Action Taken by Nursing 08/17/21 12:00 08/17/21 13:17 08/17/21 13:21 Temperature Temperature Source Pulse Rate 91 H Pulse Rate [Left] 88 Pulse Rate from SpO2 Sensor Pulse Rhythm [Left] Regular Pulse Strength [Left] Respiratory Rate 21 16 Respiratory Effort / Characteristics Non-Labored Respiratory Depth Normal Blood Pressure 100/62 Blood Pressure [Right Arm] 100/56 L Blood Pressure Mean 93 74 Blood Pressure Mean [Right Arm] 70 Blood Pressure Position [Right Arm] Pulse Oximetry 88 L 88 L Oxygen Delivery Method Room Air Room Air Oxygen Flow Rate Sepsis Recent Fever Within 48 Hours Sepsis New/Unexplained Change in Mental Status Sepsis Action Taken by Nursing 08/17/21 13:30 08/17/21 14:00 08/17/21 14:30 Temperature Temperature Source Pulse Rate 88 Pulse Rate [Left] Pulse Rate from SpO2 Sensor 92 H 94 H Pulse Rhythm [Left] Pulse Strength [Left] Respiratory Rate 22 20 Respiratory Effort / Characteristics Respiratory Depth Blood Pressure Blood Pressure [Right Arm] Blood Pressure Mean Blood Pressure Mean [Right Arm] Blood Pressure Position [Right Arm] Pulse Oximetry 100 99 99 Oxygen Delivery Method Nasal Cannula Nasal Cannula Nasal Cannula Oxygen Flow Rate 2 2 2 Sepsis Recent Fever Within 48 Hours Sepsis New/Unexplained Change in Mental Status Sepsis Action Taken by Nursing 08/17/21 15:28 Temperature Temperature Source Pulse Rate Pulse Rate [Left] 74 Pulse Rate from SpO2 Sensor Pulse Rhythm [Left] Regular Pulse Strength [Left] Normal Respiratory Rate 16 Respiratory Effort / Characteristics Non-Labored Respiratory Depth Normal Blood Pressure Blood Pressure [Right Arm] 135/75 Blood Pressure Mean Blood Pressure Mean [Right Arm] 95 Blood Pressure Position [Right Arm] Sitting Pulse Oximetry 100 Oxygen Delivery Method Nasal Cannula Oxygen Flow Rate 2 Sepsis Recent Fever Within 48 Hours Sepsis New/Unexplained Change in Mental Status Sepsis Action Taken by Nursing Laboratory Data Result diagrams: 08/17/21 11:24 08/17/21 11:24 Lab Results 08/17/21 08/17/21 08/17/21 Range/Units 11:24 11:24 14:00 WBC 7.92 (4.8-10.8) K/uL RBC 4.33 (4.2-5.4) M/uL Hgb 13.2 (12.0-16.0) g/dL Hct 39.2 (37-47) % MCV 90.5 (80-100) fL MCH 30.5 (25-34) pg MCHC 33.7 (32-36) g/dL RDW Std Deviation 46.4 H (36.4-46.3) fL RDW Coeff of Parviz 13.8 (11.5-14.5) % Plt Count 230 (130-400) K/uL MPV 9.7 (7.4-10.4) fL Immature Gran % (Auto) 0.1 % Neut % (Auto) 68.6 % Lymph % (Auto) 20.1 % [place] % (Auto) 9.7 % Eos % (Auto) 1.4 % Baso % (Auto) 0.1 % Neut # (Auto) 5.43 (1.4-6.5) K/uL Lymph # (Auto) 1.59 (1.2-3.4) K/uL [place] # (Auto) 0.77 H (0.11-0.59) K/uL Eos # (Auto) 0.11 (0-0.5) K/uL Baso # (Auto) 0.01 (0-0.2) K/uL Immature Gran # (Auto) 0.01 (0.00-0.02) K/uL Sodium 138 (136-145) mmol/L Potassium 3.8 (3.5-5.1) mmol/L Chloride 106 (98-107) mmol/L Carbon Dioxide 23 (21-32) mmol/L Anion Gap 9.0 (3-11) BUN 16 (7-18) mg/dl Creatinine 0.86 (0.6-1.2) mg/dl Est Cr Clr Drug Dosing 46.2 ml/min Est GFR ( Amer) 73.4 ml/min Est GFR (Non-Af Amer) 63.4 ml/min BUN/Creatinine Ratio 18.5 (10-20) Glucose 232 H (70-99) mg/dl Calcium 8.9 (8.5-10.1) mg/dl Total Bilirubin 1.8 H (0.2-1) mg/dl AST 23 (15-37) U/L ALT 24 (12-78) U/L Alkaline Phosphatase 96 (45-117) U/L Total Protein 7.3 (6.4-8.2) gm/dl Albumin 3.1 L (3.4-5.0) gm/dl Globulin 4.2 H (2.5-4.0) gm/dl Albumin/Globulin Ratio 0.7 L (0.9-2) TSH 1.600 (0.300-4.500) uIu/ml Urine Color Urine Appearance (Clear) Urine pH (4.5-7.5) Ur Specific [place] (1.000-1.030) Urine Protein (Negative) Urine Glucose (UA) (Negative) Urine Ketones (Negative) Urine Blood (Negative) Urine Nitrite (Negative) Urine Bilirubin (Negative) Urine Urobilinogen (Negative) Ur Leukocyte Esterase (Negative) COVID-19 Eval Order Covid19 at [facility] SARS-CoV-2 (PCR) (Negative) 08/17/21 08/17/21 Range/Units 14:00 14:00 WBC (4.8-10.8) K/uL RBC (4.2-5.4) M/uL Hgb (12.0-16.0) g/dL Hct (37-47) % MCV (80-100) fL MCH (25-34) pg MCHC (32-36) g/dL RDW Std Deviation (36.4-46.3) fL RDW Coeff of Parviz (11.5-14.5) % Plt Count (130-400) K/uL MPV (7.4-10.4) fL Immature Gran % (Auto) % Neut % (Auto) % Lymph % (Auto) % [place] % (Auto) % Eos % (Auto) % Baso % (Auto) % Neut # (Auto) (1.4-6.5) K/uL Lymph # (Auto) (1.2-3.4) K/uL [place] # (Auto) (0.11-0.59) K/uL Eos # (Auto) (0-0.5) K/uL Baso # (Auto) (0-0.2) K/uL Immature Gran # (Auto) (0.00-0.02) K/uL Sodium (136-145) mmol/L Potassium (3.5-5.1) mmol/L Chloride (98-107) mmol/L Carbon Dioxide (21-32) mmol/L Anion Gap (3-11) BUN (7-18) mg/dl Creatinine (0.6-1.2) mg/dl Est Cr Clr Drug Dosing ml/min Est GFR ( Amer) ml/min Est GFR (Non-Af Amer) ml/min BUN/Creatinine Ratio (10-20) Glucose (70-99) mg/dl Calcium (8.5-10.1) mg/dl Total Bilirubin (0.2-1) mg/dl AST (15-37) U/L ALT (12-78) U/L Alkaline Phosphatase (45-117) U/L Total Protein (6.4-8.2) gm/dl Albumin (3.4-5.0) gm/dl Globulin (2.5-4.0) gm/dl Albumin/Globulin Ratio (0.9-2) TSH (0.300-4.500) uIu/ml Urine Color Yellow Urine Appearance Clear (Clear) Urine pH 5.0 (4.5-7.5) Ur Specific [place] 1.024 (1.000-1.030) Urine Protein Negative (Negative) Urine Glucose (UA) 3+ H (Negative) Urine Ketones Trace H (Negative) Urine Blood Negative (Negative) Urine Nitrite Negative (Negative) Urine Bilirubin Negative (Negative) Urine Urobilinogen Negative (Negative) Ur Leukocyte Esterase Negative (Negative) COVID-19 Eval Order SARS-CoV-2 (PCR) NEGATIVE (Negative) Administered Medications Sodium Chloride (Nss 1000ml) 1,000 mls @ 125 mls/hr IV .Q8H STA Stop: 08/17/21 21:30 Last Admin: 08/17/21 14:43 Dose: 125 mls/hr Documented by: [id number] Discontinued Medications Acetaminophen (Ofirmev) 1,000 mg in 100 mls @ 400 mls/hr IV NOW STA Stop: 08/17/21 13:45 Last Infusion: 08/17/21 14:44 Dose: 0 mls/hr Documented by: [id number] Admin: 08/17/21 13:50 Dose: 400 mls/hr Documented by: [id number] Sodium Chloride (Nss 1000ml) 500 mls @ 999 mls/hr IV .Q31M ONE Stop: 08/17/21 14:01 Last Infusion: 08/17/21 14:44 Dose: 0 mls/hr Documented by: [id number] Admin: 08/17/21 13:51 Dose: 999 mls/hr Documented by: [id number] Imaging Data Radiologist's Impression: Femur X-Ray 08/17/21 11:10 XR femur LT 2V routine HISTORY: 81 years-old Female fall, distal pain acute pain of the left hip status post fall COMPARISON: None TECHNIQUE: 2 views of the left femur FINDINGS: Demineralized appearance of the bones. There is an acute intertrochanteric fracture of the left femur without significant displacement. Possible mild comminution. Moderate left hip osteoarthritis without dislocation. Moderate joint effusion of the knee. Arterial calcifications. IMPRESSION: 1. Acute nondisplaced intertrochanteric fracture. 2. Moderate joint effusion of the knee. ACT 112: Negative or not required by law. The above report was generated using voice recognition software. It may contain grammatical, syntax or spelling errors. Electronically signed by: Frankie Jackson M.D. 08/17/2021 12:31 PM Chest X-Ray 08/17/21 11:11 XR chest 1V not portable CLINICAL HISTORY: weakness TECHNIQUE: Single frontal radiograph of the chest was obtained. Comparison: Comparison is made to chest one view 02/26/2019 FINDINGS: No lines and tubes are seen. The cardiomediastinal silhouette is stable. Lungs are underinflated but clear. No evidence of pleural effusion or pneumothorax. IMPRESSION: No acute chest disease. ACT 112: Negative or not required by law. Electronically signed by: Almas Hoang M.D. 08/17/2021 12:36 PM Discharge Plan Visit Data Chief Complaint: Fall Stated Complaint: FALL, L SIDE & LEG PAIN ED Provider: Darryl Chawla Discharge Problem: Closed fracture of left hip, Acute pain of left lower extremity, Fall Forms Stand Alone Forms: [employer] Prescriptions Prescriptions: No Action lisinopril 10 mg tablet 10 mg PO DAILY Qty: 90 RF: 3 metoprolol succinate 25 mg tablet extended release 24 hr 25 mg PO DAILY Qty: 90 RF: 3 atorvastatin 40 mg tablet 80 mg PO DAILY Qty: 180 RF: 11 aspirin [Ecotrin Low Strength] 81 mg Tablet,Delayed Release (Dr/Ec) 81 mg PO QAM Qty: 30 RF: 0 acetaminophen [Mapap (acetaminophen)] 325 mg Tablet 650 mg PO Q4H PRN (Reason: pain) Qty: 60 RF: 0 Lantus Solostar U-100 Insulin 100 unit/mL (3 mL) insulin pen 20 unit SC QPM RF: 0 Referrals Referrals: Ben Paula DO [Primary Care Provider] -
--- NOTE | 2021-08-17 12:33 | XRay Report ---
XR femur LT 2V routine HISTORY: 81 years-old Female fall, distal pain acute pain of the left hip status post fall COMPARISON: None TECHNIQUE: 2 views of the left femur FINDINGS: Demineralized appearance of the bones. There is an acute intertrochanteric fracture of the left femur without significant displacement. Possible mild comminution. Moderate left hip osteoarthritis withou t dislocation. Moderate joint effusion of the knee. Arterial calcifications. IMPRESSION: 1. Acute nondisplaced intertrochanteric fracture. 2. Moderate joint effusion of the knee. ACT 112: Negative or not required by law. The above report was generated using voice recognition software. It may contain grammatical, syntax o r spelling errors. Electronically signed by: Frankie Jackson M.D. 08/17/2021 12:31 PM
--- NOTE | 2021-08-17 12:38 | XRay Report ---
XR chest 1V not portable CLINICAL HISTORY: weakness TECHNIQUE: Single frontal radiograph of the chest was obtained. Comparison: Comparison is made to chest one view 02/26/2019 FINDINGS: No lines and tubes are seen. The cardiomediastinal silhouette is stable. Lungs are underinflated but clear. No evidence of pleural effusion or pneumothorax. IMPRESSION: No acute chest disease. ACT 112: Negative or not required by law. Electronically signed by: Almas Hoang M.D. 08/17/2021 12:36 PM
[2021-08-17] MEDS ORDERED: SODIUM CHLORIDE 0.9% 1000ML 1,000 ML IV STA (13:31)
[2021-08-17] MEDS ORDERED: ACETAMINOPHEN 1,000 MG/100 ML VIAL IV STA (13:31)
[2021-08-17] MEDS ORDERED: SODIUM CHLORIDE 0.9% 1000ML 500 ML IV ONE (13:31)
[2021-08-17 14:18] LABS: Appearance Urine Clear (Clear); Bilirubin Urine Negative (Negative); Blood Urine Negative (Negative); Color Urine Yellow; Glucose Urine UA 3+ (Negative); Ketones Urine Trace (Negative); Leukocyte Esterase Urine Negative (Negative); Nitrite Urine Negative (Negative); Protein Urine Negative (Negative); Specific Gravity Urine 1.024 (1.000-1.030); Urobilinogen Urine Negative (Negative)
--- NOTE | 2021-08-17 16:03 | History & Physical Report ---
Date of Service August 17, 2021 Assessment & Plan (1) Acute pain of left lower extremity: Plan: 1) Left intertrochanteric fracture -S/p mechanical fall, XR demonstrating acute nondisplaced L intertrochanteric fracture with possible mild comminution. Likely underlying osteoporosis/osteopenia -Will need operative management, orthopedics consulted -Would strongly benefit from inpatient rehab/SNF, outpatient bone health evaluation and possible vitamin D supplementation -PT/OT ordered -Scheduled Tylenol for pain -NPO after midnight for surgery tomorrow 2) Chronic pulmonary emboli -Chronic PE noted in 10/2018 and was previously on anticoagulation -Currently stable without negative CXR, no dyspnea and consistent O2 saturation above 90% since ED arrival -Uncertain as to what anticoagulation she was on in the past, taking daily aspirin currently -Lovenox 40 mg qd ordered for anticoagulation 3) Hypertension -Holding home lisinopril prior to surgery -Continue home metoprolol -BPs stable currently at 130s-140s/80s 4) Hyperlipidemia -Continue home statin 5) Coronary artery disease -Acute ID in past s/p stent placement in LAD -Normal EKG on admission -Holding home aspirin prior to surgery to reduce bleeding risk -Continue metoprolol 6) Diabetes -Reportedly poorly controlled, A1C 10.6% as of July 2019 -Lantus 20u daily at home -Lantus 4u BID, Novolog ISS in hospital [facility]: NPO after midnight Code status:Full DVT ppx:Lovenox 40 mg qAM Isolation:none Dispo: acute rehab most likely History of Present Illness Chief Complaint: Fall Primary Care Provider: Ben Paula DO Pt is 81 yo F with PMH of HTN, HLD, DM2, cognitive impairment, acute ID with stent placement, chronic PEs, breast cancer in remission, multiple falls (including R proximal humerus fracture 2 years ago, R hip fracture s/p repair) presenting for mechanical fall. Pt apparently got her feet caught up by the radiator in her kitchen and fell earlier in AM, fall witnessed by teenage grandson. Did not experience any preceding symptoms, fell on L side with most of fall contained to her torso and some bumping of her head. Did not lose consciousness, did not experience any dyspnea, chest pain, back pain, weakness, numbness or confusion. No seizure-like movements noted. Pt's [id number] called EMS who arrived within 15 minutes of fall. Pt unable to get up on her own, was assisted off the floor by EMS. In the ED, workup revealed negative CXR, XR of L femur showing acute nondisplaced intertrochanteric fracture. Pt received IV pain medication, was hemodynamically stable throughout. During evaluation, denied pain, weakness or numbness, no headache, vision change or bowel/bladder incontinence. Pt is poor historian, much of history was obtained by her son (nurse) at bedside and via phone with [id number] who called EMS. Lives with but is regularly visited by son who helps administer her medications, also has a visiting nurse. Allergies Allergy/AdvReac Type Severity Reaction Status Date / Time Penicillins Allergy Unknown Verified 08/17/21 11:28 Home Medications Medication Instructions Recorded Confirmed Type acetaminophen 325 mg tablet (Mapap 650 mg PO Q4H PRN #60 tab 08/10/19 08/17/21 Rx (acetaminophen)) aspirin 81 mg tablet,delayed 81 mg PO QAM #30 tab 08/10/19 08/17/21 Rx release (Ecotrin Low Strength) lisinopril 10 mg tablet 10 mg PO DAILY #90 tab 08/23/20 08/17/21 Rx atorvastatin 40 mg tablet 80 mg PO DAILY #180 tab 09/01/20 08/17/21 Rx metoprolol succinate 25 mg 25 mg PO DAILY #90 tab 09/01/20 08/17/21 Rx tablet,extended release 24 hr insulin glargine 100 unit/mL (3 20 unit SC QPM 08/17/21 08/17/21 History mL) subcutaneous pen (Lantus Solostar U-100 Insulin) Past Med/Surg History Medical History Diabetes Hypertension Myocardial infarction Surgical History History of heart artery stent Family History Other Family history non-contributory Social History Smoking Status: Former smoker Second Hand Exposure: No; Do You Dip or Chew Tobacco: No; Tobacco Cessation Education Requested by Patient: No Hx Alcohol Use: No Hx Substance Use: No Preferred Language: Occitan Communication Ability: Effective 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 Beliefs That Will Affect Care: None marital status: 1 Current Living Situation: Spouse How many Children do You have: 3 Feels Safe at Home: Yes Safety Concerns: Feels Safe At This Time Assistive Devices: None Review of Systems Review of Systems: +Minor L leg pain Physical Exam Physical Exam: General: well-appearing woman laying in bed, no acute distress HEENT: moist mucous membranes, trachea midline CV:RRR, normal S1, S2 Resp:CTAB, unlabored respirations Abdomen:soft, nontender, nondistended Neuro:5/5 strength of b/l UE, RLE, strength testing of LLE limited by pain, no sensory deficits of b/l LE MSK: FROM of b/l UE and RLE, ROM testing of LLE limited by pain, tenderness of L anterior thigh and hip Extremities: no edema, strong distal pulses b/l LE Skin: warm and dry, no lesions or swelling Results & Data Results & Data ([facility]) Vital Signs (Past 12 Hours) Vital Signs Temp Pulse Pulse Resp BP BP Pulse Ox 08/17/21 15:28 74 16 135/75 100 08/17/21 14:30 20 99 08/17/21 14:00 99 08/17/21 13:30 88 22 100 08/17/21 13:21 88 16 100/56 L 88 L 08/17/21 13:17 91 H 21 100/62 88 L 08/17/21 11:30 86 16 143/81 H 91 08/17/21 11:28 94 08/17/21 11:27 87 16 145/80 H 94 08/17/21 11:00 91 H 17 145/80 H 92 08/17/21 10:42 91 H 16 92 08/17/21 10:33 36.9 C 80 18 155/92 H 98 Code Status & VTE Plan VTE Prophylaxis Plan VTE Prophylaxis will be ordered: Yes Supervising Physician Co-Signing Physician Notes I personally examined the patient and verified all plaza points of history and exam, discussed case, and agree with decision making with Dr Tamayo. Tripped. No loss of consciousness no blacking out, mechanical fall. Hip pain. Found to have fracture. Son notes that she does have a degree of memory issues. Vitals noted, in general she is awake and alert pleasant no distress. HEENT normocephalic atraumatic mucous membranes moist. Breathing unlabored no accessory muscle use good effort. Skin shows no rashes no pallor or icterus. Presumably osteoporotic hip fractureorthopedics consult, anticipate OR soon Presumed osteoporosisoutpatient bone health work-up and management VTE historyaggressive DVT prophylaxis Probably mild to moderate dementia by historyreassurance/reorientation/supportive care. Preeducated son on delirium. He expresses good understanding. Otherwise as above Resident Activity Tracking Resident Involvement: Resident Care Provided Care Provided: Adult Hospital Medicine
[2021-08-17] MEDS ORDERED: GLUCAGON FOR INJ 1 MG VIAL SQ PRN (16:33)
[2021-08-17] MEDS ORDERED: GLUCOSE 40% GEL 15 GM TUBE PO PRN (16:33)
[2021-08-17] MEDS ORDERED: DEXTROSE 50% 50 ML SYRINGE IV PRN (16:33)
[2021-08-17] MEDS ORDERED: GLUCOSE 10 TABS/TUBE PO PRN (16:33)
[2021-08-17] MEDS ORDERED: CARBOHYDRATES FOR HYPOGLYCEMIA PO PRN (16:33)
[2021-08-17] MEDS ORDERED: POLYETHYLENE (MIRALAX) 17 GM PACK PO PRN (18:37)
[2021-08-17] MEDS ORDERED: ACETAMINOPHEN 325 MG TAB PO PRN (18:37)
[2021-08-17] MEDS ORDERED: ONDANSETRON INJ 2 MG/ML 2 ML VIAL IV PRN (18:37)
[2021-08-17] MEDS ORDERED: INFLUENZA VACCINE HIGH DOSE PF 65+ 0.7 ML SYR IM ONE (19:06)
[2021-08-17] MEDS: INSULIN GLARGINE SOLOSTAR 100 UNITS/ML 3 ML PEN SC SCH (20:48)
[2021-08-17] MEDS: ENOXAPARIN INJ 40 MG/0.4 ML SYR SQ SCH ×2 (20:49→21:32)
[2021-08-17] MEDS: ACETAMINOPHEN 1,000 MG/100 ML VIAL IV SCH (20:49)
[2021-08-17] MEDS ORDERED: INSULIN ASPART 100 UNITS/ML 3 ML PEN SC SCH (21:00)
[2021-08-17] MEDS ORDERED: INSULIN GLARGINE SOLOSTAR 100 UNITS/ML 3 ML PEN SC SCH (21:00)
[2021-08-18] MEDS ORDERED: Nursing to Pharmacy Communication SCH ×2 (03:45→23:00)
[2021-08-18] MEDS: INSULIN ASPART 100 UNITS/ML 3 ML PEN SC SCH ×4 (05:54→20:45)
[2021-08-18] MEDS: ACETAMINOPHEN 1,000 MG/100 ML VIAL IV SCH ×3 (05:54→20:42)
--- NOTE | 2021-08-18 06:39 | Electrocardiogram Report ---
Test Reason : Blood Pressure : / mmHG Vent. Rate : 088 BPM Atrial Rate : 088 BPM P-R Int : 178 ms QRS Dur : 060 ms QT Int : 380 ms P-R-T Axes : 000 -14 022 degrees QTc Int : 459 ms Normal sinus rhythm Low voltage QRS Possible Inferior infarct When compared with ECG of 07-AUG-2019 13:55, No significant change Confirmed by Galen Goodman ([id number]) on 08/18/2021 6:39:27 AM Referred By: REFERRED SELF Confirmed By:Galen Goodman
[2021-08-18 06:58] LABS: Hematocrit (blood only) 35.6 % (37-47); Hemoglobin 11.8 g/dL (12.0-16.0); Mean Corpuscular Hemoglobin 29.9 pg (25-34); Mean Corpuscular Hgb Conc 33.1 g/dL (32-36); Mean Corpuscular Volume 90.1 fL (80-100); Mean Platelet Volume 9.9 fL (7.4-10.4); Platelet Count 213 K/uL (130-400); RDW Coefficient of Variation 13.6 % (11.5-14.5); RDW Standard Deviation 45.4 fL (36.4-46.3); Red Blood Count 3.95 M/uL (4.2-5.4); White Blood Count 10.19 K/uL (4.8-10.8)
[2021-08-18 07:29] LABS: BUN Creatinine Ratio 17.7 (10-20); Creatinine Clr Calc Pharmacy 57.5 ml/min; Est GFR (African American) 94.6 ml/min; Est GFR (Non-African American) 81.6 ml/min; Potassium 3.6 mmol/L (3.5-5.1)
--- NOTE | 2021-08-18 07:56 | Orthopedic Consultation ---
Date of Service August 18, 2021 Assessment & Plan (1) Closed fracture of left hip: Patient is an 81-year-old female with multiple medical comorbidities include hypertension, history of PE in the past, elevated cholesterol, coronary disease status post stent placement, diabetes, and breast cancer in remission with a displaced left intertrochanteric hip fracture. She has been medically optimized. This is certainly stop there would benefit from surgery. Discussed treatment options. Were going to proceed with IM nailing of left intertrochanteric fracture. The risks med this procedure explained the patient could be an element DVT PE infection neurological injury vascular bleeding palm pain limb range of motion this is fairly her symptoms and complete relief of symptoms nonunion malunion and need for further surgery. The patient understands and desires to proceed but informed consent is obtained. She will believe likely need some type of anticoagulation postoperatively most likely Lovenox for about 2 weeks. He certainly is at increased risk of PE considering her history. Will start her on prophylactic doses 24 hours postop. History of Present Illness Reason for Consultation: . Left hip fracture. Requesting Physician: . Attending Physician: Celestino Wilkins DO . Patient is an 81-year-old female who presents for evaluation of the left hip and leg pain. She sustained a fall in her kitchen yesterday morning. She apparently tripped over some. She had no pre-existing hip pain prior to this. She did have acute onset of left leg pain and discomfort patient brought to the emergency room where x-rays revealed a left intertrochanteric hip fracture. She has been admitted to the medicine service and we have been consulted. She is previous in a ambulator. Denies any pre-existing hip pain. Also having some left leg discomfort and knee pain. Denies any loss of consciousness. Allergies Allergy/AdvReac Type Severity Reaction Status Date / Time Penicillins Allergy Unknown Verified 08/17/21 11:28 Home Medications Medication Instructions Recorded Confirmed Type acetaminophen 325 mg tablet (Mapap 650 mg PO Q4H PRN #60 tab 08/10/19 08/17/21 Rx (acetaminophen)) aspirin 81 mg tablet,delayed 81 mg PO QAM #30 tab 08/10/19 08/17/21 Rx release (Ecotrin Low Strength) lisinopril 10 mg tablet 10 mg PO DAILY #90 tab 08/23/20 08/17/21 Rx atorvastatin 40 mg tablet 80 mg PO DAILY #180 tab 09/01/20 08/17/21 Rx metoprolol succinate 25 mg 25 mg PO DAILY #90 tab 09/01/20 08/17/21 Rx tablet,extended release 24 hr insulin glargine 100 unit/mL (3 20 unit SC QPM 08/17/21 08/17/21 History mL) subcutaneous pen (Lantus Solostar U-100 Insulin) Past Med/Surg History Medical History Diabetes Hypertension Myocardial infarction Surgical History History of heart artery stent Family History Other Family history non-contributory Social History Smoking Status: Former smoker Second Hand Exposure: No; Do You Dip or Chew Tobacco: No; Tobacco Cessation Education Requested by Patient: No Hx Alcohol Use: No Hx Substance Use: No Preferred Language: Citizen Of [place] Communication Ability: Effective Regulatory Affairs Assistant Required: No Beliefs That Will Affect Care: None marital status: Current Living Situation: Spouse How many Children do You have: 3 Feels Safe at Home: Yes Safety Concerns: Feels Safe At This Time Assistive Devices: Glasses Review of Systems All systems reviewed & are unremarkable except as noted in HPI & below. Physical Exam . Patient is a pleasant awake alert and oriented elderly female. Lying in bed looks pretty comfortable. General musculoskeletal exam reveals painless range of motion of her cervical and thoracic and lumbar spine. She has full and painless made range of motion of both upper extremities and her right lower extremity. Examination left lower extremity is the leg to be slightly flexed and externally rotated and shortened. There is no bruising or swelling. She does have a moderate sized knee joint effusion. She has pain with any type of hip motion. Cannot do a straight leg raise. There is no instability to her knee. Her extensor mechanism intact. As she is neurologically intact otherwise. Results & Data Results & Data Laboratory Results . Diagnostic Findings . X-rays of the left femur and hip reveal a left mildly displaced intertrochanteric hip fracture. Diffuse osteopenia. She got some calcification of her popliteal artery. She does have a knee effusion but no signs of fracture in the knee joint. PG Care Time/CCT Total # of Minutes Spent Total Time Spent with Patient: Total time spent is greater than 50% in coordination of care (as documented) at patient's floor/unit and/or counseling patient: Coding Level of Care Code 19921 Inpt Consult Level 5 Diagnoses Closed fracture of left hip S72.002A
[2021-08-18] MEDS: ATORVASTATIN 40 MG TAB PO SCH (08:12)
[2021-08-18] MEDS: INSULIN GLARGINE SOLOSTAR 100 UNITS/ML 3 ML PEN SC SCH ×2 (08:12→20:44)
[2021-08-18 08:43] LABS: Estimated Average Glucose 258 mg/dl; Hemoglobin A1C 10.6 % (4.5-5.6)
--- NOTE | 2021-08-18 10:36 | Hospitalist Progress Note ---
Date of Service August 18, 2021 Assessment & Plan (1) Acute pain of left lower extremity: Plan: 1) Left intertrochanteric fracture -S/p mechanical fall, XR demonstrating acute nondisplaced L intertrochanteric fracture with possible mild comminution. Likely underlying osteoporosis/osteopenia -Will need operative management, orthopedics consulted -Would strongly benefit from inpatient rehab/SNF, outpatient bone health evaluation and possible vitamin D supplementation -PT/OT ordered -Scheduled Tylenol for pain -NPO since midnight -Scheduled for nailing surgery today with orthopedics 2) Chronic pulmonary emboli -Chronic PE noted in 10/2018 and was previously on anticoagulation -Currently stable without negative CXR, no dyspnea and consistent O2 saturation above 90% since ED arrival -Uncertain as to what anticoagulation she was on in the past, taking daily as pirin currently -Lovenox 40 mg qd ordered for anticoagulation 3) Hypertension -Holding home lisinopril prior to surgery -Continue home metoprolol -BPs stable currently at 130s-140s/80s 4) Hyperlipidemia -Continue home statin 5) Coronary artery disease -Acute NV in past s/p stent placement in LAD -Normal EKG on admission -Holding home aspirin prior to surgery to reduce bleeding risk -Continue metoprolol 6) Diabetes -Reportedly poorly controlled, A1C 10.6% as of July 2019 -Lantus 20u daily at home -Lantus 4u BID, Novolog ISS in hospital FENGI: NPO after midnight Code status:Full DVT ppx:Lovenox 40 mg qAM Isolation:none Dispo: acute rehab most likely Admission and Anticipated Discharge Date Admission Date: August 17, 2021 Supervising Physician Co-Signing Physician Notes I personally examined the patient and verified all plaza points of history and exam, discussed case, and agree with decision making with Dr Tamayo. Feeling okay postop. About to eat, does not feel that hungry but is going to try to eat some. No other complaints. Vitals noted, in general she is awake and alert pleasant no distress. HEENT normocephalic atraumatic mucous membranes moist. Breathing unlabored no accessory muscle use good effort. Skin shows no rashes no pallor or icterus. Presumably osteoporotic hip fracturenow status post OR. PT/OT eval and treat. Anticipate need for placement. Presumed osteoporosisoutpatient bone health work-up and management VTE historyaggressive DVT prophylaxis Otherwise as above Subjective Pt felt ok but endorsing some mild-moderate L leg and hip pain. Questioned when she would get her surgery today. Pt ok with idea of rehab after discharge. Review of Systems Review of Systems: +Minor L leg pain Physical Exam Physical Exam: General: well-appearing woman laying in bed, no acute distress HEENT: moist mucous membranes, trachea midline CV:RRR, normal S1, S2 Resp:CTAB, unlabored respirations Abdomen:soft, nontender, nondistended Neuro:5/5 strength of b/l UE, RLE, strength testing of LLE limited by pain, no sensory deficits of b/l LE MSK: FROM of b/l UE and RLE, ROM testing of LLE limited by pain, tenderness of L anterior thigh and hip Extremities: no edema, strong distal pulses b/l LE Skin: warm and dry, no lesions or swelling Results & Data Results & Data ([facility]) Vital Signs (Past 12 Hours) Vital Signs Temp Pulse Pulse Resp BP Pulse Ox 08/18/21 07:30 37.2 C 111 H 20 128/79 91 08/17/21 23:12 37 C 96 H 18 112/70 93
[2021-08-18] MEDS: METOPROLOL SUCC 25MG EXT REL TAB PO SCH (10:40)
[2021-08-18] MEDS ORDERED: PROPOFOL IV EMULSION 10 MG/ML 20 ML VIAL IV ONE (11:50)
[2021-08-18] MEDS ORDERED: fentaNYL citrate 100 MCG/2 ML VIAL ONE ×2 (11:51→13:23)
[2021-08-18] MEDS ORDERED: EPINEPHrine INJ 1 MG/ML AMP ONE (11:54)
[2021-08-18] MEDS ORDERED: BUPIVACAINE 0.5 % 5 MG/1 ML MPF 30ML VIAL ONE (11:54)
[2021-08-18] MEDS ORDERED: fentaNYL citrate 100 MCG/2 ML VIAL IV PRN (12:41)
[2021-08-18] MEDS ORDERED: ONDANSETRON INJ 2 MG/ML 2 ML VIAL IV PRN (12:41)
[2021-08-18] MEDS ORDERED: ePHEDrine sulfate 50 MG/ML AMP IV PRN (12:41)
[2021-08-18] MEDS ORDERED: ATROPINE SULFATE 0.1 MG/ML 10ML SYR IV PRN (12:41)
[2021-08-18] MEDS ORDERED: HYDROmorphone INJ 2 MG/ML SYR/VIAL IV PRN (12:41)
--- NOTE | 2021-08-18 12:41 | Anesthesiology Consultation ---
Date of Service August 18, 2021 Assessment & Plan ASA ASA3 Proposed Anesthesia Anesthesia Type: General Risk / Benefits Reviewed With: PT / POA / Parent / Guardian, Accepts Plan and Informed Consent Obtained History Surgery Operation Date: 08/18/21 07:00 Proposed Procedures p Left Long Troch Nail - Jesus Nix MD Height/Weight Height: 5 ft 5 in Weight: 60.4 kg Allergies Allergy/AdvReac Type Severity Reaction Status Date / Time Penicillins Allergy Unknown Verified 08/17/21 11:28 Medications Home Medications Medication Instructions Recorded Confirmed Last Taken acetaminophen 325 mg tablet (Mapap 650 mg PO Q4H PRN #60 tab 08/10/19 08/17/21 Unknown (acetaminophen)) aspirin 81 mg tablet,delayed 81 mg PO QAM #30 tab 08/10/19 08/17/21 Unknown release (Ecotrin Low Strength) lisinopril 10 mg tablet 10 mg PO DAILY #90 tab 08/23/20 08/17/21 Unknown atorvastatin 40 mg tablet 80 mg PO DAILY #180 tab 09/01/20 08/17/21 Unknown metoprolol succinate 25 mg 25 mg PO DAILY #90 tab 09/01/20 08/17/21 Unknown tablet,extended release 24 hr insulin glargine 100 unit/mL (3 20 unit SC QPM 08/17/21 08/17/21 Unknown mL) subcutaneous pen (Lantus Solostar U-100 Insulin) Active Medications Generic Name Dose Route Start Last Admin Trade Name Freq PRN Reason Stop Dose Admin Atorvastatin Calcium 80 mg 08/18/21 09:00 08/18/21 08:12 Atorvastatin 40 Mg Tab PO 09/17/21 08:59 80 mg DAILY MARI Administration Acetaminophen 1,000 mg in 100 mls @ 400 mls/hr 08/17/21 22:00 08/18/21 06:17 Ofirmev IV 08/20/21 21:59 Infused Q8H MARI Infusion Insulin Aspart 0 units 08/18/21 06:00 08/18/21 05:54 Insulin Aspart 100 Units/Ml 3 Ml Pen SC 09/17/21 05:59 2 units Q6 MARI Administration Insulin Glargine 5 units 08/17/21 21:00 08/18/21 08:12 Insulin Glargine Solostar 100 Units/Ml 3 Ml Pen SC 09/16/21 20:59 5 units BID MARI Administration Metoprolol Succinate 25 mg 08/18/21 09:00 08/18/21 10:40 Metoprolol Succ 25mg Ext Rel Tab PO 09/17/21 08:59 Not Given DAILY MARI Ondansetron HCl 4 mg 08/17/21 18:37 08/18/21 08:12 Ondansetron Inj 2 Mg/Ml 2 Ml Vial IV 09/16/21 18:36 4 mg Q6H PRN Administration Nausea NPO Date Last Intake of Fluids: 08/17/21 Time Last Intake of Fluids: 23:55 Last Intake of Fluids Comment: sip with meds Date Last Intake of Solids: 08/17/21 Time Last Intake of Solids: 23:55 Past Medical History Medical History Diabetes Hypertension Myocardial infarction Exercise / Class Metabolic Activity II 4-5 Yardwork/Stairs/Walk up hill Past Family History Family History Other Family history non-contributory Past Surgical History Surgical History History of heart artery stent Past Anesthesia History No Hx of Anesthesia Complications and No Family Hx of Anesthesia Complications History of PONV No Hx of PONV and No Hx of Motion Sickness Social History Smoking Status: Former smoker tobacco type: cigarettes Do You Dip or Chew Tobacco: No Hx Alcohol Use: No Hx Substance Use: No Review of Systems denies fever/cough/ colds/ chest pain/ SOB/ SHARIFA denies SHAIRFA Physical Exam Vital Signs Last Vital Signs Temp 36.7 C 08/18/21 12:21 Pulse 120 H 08/18/21 12:21 Resp 20 08/18/21 12:21 BP 140/92 08/18/21 12:21 Pulse Ox 92 08/18/21 12:21 ENMT Mouth: + dentures; no TMJ abnormality and no dentition abnormality Thyromental Distance: > or= 3.5 Finger Breadths Mallampati Class: II Neck neck extension not limited Respiratory normal respiratory effort; no respiratory distress Auscultation: lungs clear to auscultation bilaterally Cardiovascular Rate/Rhythm: regular rhythm and + tachycardic Neurologic moves all extremities Psychiatric Orientation: alert and oriented x 3 Testing Laboratory Results 08/18/21 06:23 08/18/21 06:23 Hemoglobin A1c 10.6 % (4.5-5.6) H 08/18/21 06:23 Urine Color Yellow 08/17/21 14:00 Urine Appearance Clear (Clear) 08/17/21 14:00 Urine pH 5.0 (4.5-7.5) 08/17/21 14:00 Ur Specific [place] 1.024 (1.000-1.030) 08/17/21 14:00 Urine Protein Negative (Negative) 08/17/21 14:00 Urine Glucose (UA) 3+ (Negative) H 08/17/21 14:00 Urine Ketones Trace (Negative) H 08/17/21 14:00 Urine Nitrite Negative (Negative) 08/17/21 14:00 Ur Leukocyte Esterase Negative (Negative) 08/17/21 14:00 08/18/21 05:52 POC Glucose 220 H
[2021-08-18] MEDS ORDERED: PHENYLEPHRINE 100MCG/ML 5ML SYR ONE (13:10)
[2021-08-18] MEDS ORDERED: ceFAZolin 2000MG 2,000 MG/15 ML SYR IV ONE (13:10)
[2021-08-18] MEDS ORDERED: ePHEDrine sulfate 50 MG/ML SYR ONE (13:10)
[2021-08-18] MEDS ORDERED: NALOXONE HCL 0.4 MG/1 ML VIAL/CARP IV PRN (14:23)
--- NOTE | 2021-08-18 14:33 | Operative Report ---
Post Operative Report Pre & Post Diagnosis Operation Date: 08/18/21 07:00 Pre-Op Diagnosis: MECHANICAL FALL WITH LEFT INTERTROCHANTERIC DISPLACED HIP FRACTURE Left knee effusion Post-Op Diagnosis: MECHANICAL FALL WITH LEFT INTERTROCHANTERIC DISPLACED HIP FRACTURE Left knee hemarthrosis without fracture I identified the patient and participated in the time-out.: Yes Procedure Operation Date: 08/18/21 07:00 Actual Procedures p Left Hip Long Troch Nail, Left Knee Aspiration(Left) - Jesus Nix MD Aspiration of the left knee under anesthesia Surgeon Jesus Nix MD Data Officer Emory Rae PA-C Estimated Blood Loss 50 Findings Consistent with Post-Op Diagnosis Operative findings: Displaced left intertrochanteric hip fracture. She also had a significant knee joint effusion without apparent fracture around the knee joint Fluids 1000 cc Specimens None Complications none Disposition Accompanied Patient To Recovery: No Indications Patient is an 81-year-old female who sustained a fall yesterday morning at home. She tripped in her kitchen. She fell on her left side. Acute onset of left hip pain. She was unable to ambulate. She was brought to emergency room where x-rays revealed left intertrochanteric hip fracture. She also had a significant knee joint effusion. There is no apparent fracture in her knee joint. Patient is medically optimized and indicated for surgical fixation of her left hip fracture. We also elected to aspirate her knee for both diagnostic and therapeutic purposes. Description of Procedure Operative implants consist of: 1. Synthes left 340 mm x 11 mm long trochanteric nail. 2. 85 mm helical blade. 3. 42 mm distal interlocking screw. The patient was taken the operating, identified, and placed on the operating table supine position brought contractors were properly padded. A general anesthetic was implemented by anesthesia team. The patient was placed on the fracture table. The left leg was placed in boot traction the right leg was placed in a well leg rizzo. Some longitudinal traction was then applied to the left femur and the foot was internally rotated such that the posterior pointed to the ceiling. I then prepped the left knee joint with alcohol and then aspirated the knee for about 80 cc of initially more serous but eventually more bloody fluid. The left leg was then scrubbed with Hibiclens and then prepped with ChloraPrep and draped in usual sterile fashion. A curvilinear incision was made just proximal to the tip of the trochanter. Sharp dissection carried through subcutaneous tissue down the gluteal fascia gluteal fascia was incised longitudinally in line with skin incision. A guidewire was then placed just lateral to the tip of the trochanter and in line with the IM canal both the AP and lateral planes. This advanced down the IM canal. Position was verified fluoroscopically. This is overreamed with a 17 mm reamer. The guidewire was then removed and a ball-tipped guidewire was placed. I then measured for nail length at 340 mm nail was selected. I then passed the 11 mm reamer, 12 mm reamer, and the 12 and half millimeter reamer down the canal over the guidewire. A 340 mm x 11 mm left long trochanteric nail was then placed over the guidewire and tapped into position. The lateral aiming arm was placed. Stab incision was made in the lateral aiming arm was advanced to the lateral aspect of the femur. Guidewire was placed in the center of the femoral head neck in both the AP and lateral planes. Length was measured and a 85 mm helical blade was selected. The cortical step drill was used to breach the cortex and then the triple reamer was set at 85 and advanced over the guidewire. An 85 mm helical blade was placed. I tapped this into position. The proximal setscrew was tightened. I then compressed the fracture and the proximal aiming arm was removed. Some final x-rays were obtained. Attention drawn toward di stal interlocking. Using the perfect osage technique a distal interlocking screw was placed through the dynamic hole. Just made after stab incision in the 4.0 mm drill was used to drill followed by the 5.0 screw. Final x-rays were obtained. I did x- ray the knee joint again to make sure there is no apparent fractures. The leg was then cleaned and dried a sterile dressing composed of Xeroform: 4 x 4's, ABD pad, foam tape was applied. The patient was then taken off the fracture table and brought out of general anesthesia and transferred to the recovery room in stable condition. Patient tolerated the procedure well and there were no complications. Emory Rae, my physician assistant store director, was present for the entire procedure. His assistance was required for proper patient positioning, prepping and draping, surgical exposure, retraction, perform the technical details the operation, closure of the wound, and placement of the sterile bandage. I attest to the content of the Intraoperative Record and any orders documented therein. Any exceptions are noted below.
--- NOTE | 2021-08-18 14:41 | Fluoroscopy Report ---
FL femur LT 2V CLINICAL HISTORY: LT LONG TROCH NAIL, LEFT KNEE ASPIRATION OF HEMATOMA TECHNIQUE: 5 views were obtained with the C-arm in the OR with the above procedure. Total fluoroscopy time was 52.6 seconds. Total skin dose was 7.55 mGy. Comparison: Comparison is made to femur radiographs 08/17/2021 FINDINGS/IMPRESSION: Intraoperative images of medullary nail placement were obtained. Please correlate with intraoperative fluoroscopy and operative report. ACT 112: Negative or not required by law. Electronically signed by: Almas Hoang M.D. 08/18/2021 2:40 PM
--- NOTE | 2021-08-18 15:02 | Anesthesiology Progress Note ---
Date of Service August 18, 2021 Anesthesia Post Procedure Vital Signs Vital Signs: Temp Pulse Pulse Pulse Pulse Pulse Resp 08/18/21 14:50 98.2 F 102 H 16 08/18/21 14:40 109 H 14 08/18/21 14:30 108 H 15 08/18/21 14:20 111 H 16 08/18/21 14:11 97.3 F L 112 H 13 08/18/21 12:21 98.1 F 120 H 20 08/18/21 07:30 99.0 F 111 H 20 08/17/21 23:12 98.6 F 96 H 18 08/17/21 18:10 98.4 F 89 18 08/17/21 17:55 90 16 08/17/21 17:00 82 13 08/17/21 16:51 86 17 08/17/21 16:30 14 08/17/21 16:00 22 08/17/21 15:30 17 08/17/21 15:28 74 16 BP BP BP Pulse Ox 08/18/21 14:50 111/74 96 08/18/21 14:40 121/61 96 08/18/21 14:30 128/78 98 08/18/21 14:20 135/81 100 08/18/21 14:11 123/74 98 08/18/21 12:21 140/92 92 08/18/21 07:30 128/79 91 08/17/21 23:12 112/70 93 08/17/21 18:10 132/80 91 08/17/21 17:55 115/71 93 08/17/21 17:00 100 08/17/21 16:51 131/71 100 08/17/21 16:30 131/71 99 08/17/21 16:00 110/61 98 08/17/21 15:30 100 08/17/21 15:28 135/75 100 Pain Intensity Left Hip: Pain Intensity: 2 Transfer of Care Handoff Completed per policy Notes Mental Status: alert / awake / arousable and participated in evaluation Patient Amnestic to Procedure: Yes Nausea / Vomiting: adequately controlled Pain: adequately controlled Airway Patency, RR, SpO2: stable & adequate BP & HR: stable & adequate Hydration State: stable & adequate Anesthetic Complications: no major complications apparent and Pt Satisfied with anesthetic care
--- NOTE | 2021-08-18 18:12 | Billing Data ---
Date of Service August 18, 2021 Coding Level of Care Code 27923 Subseq Hosp Care Lvl 2
--- NOTE | 2021-08-18 18:13 | Billing Data ---
Date of Service August 17, 2021 Coding Level of Care Code 10869 Initial Inpt Care Lvl 3
[2021-08-19] MEDS: ACETAMINOPHEN 1,000 MG/100 ML VIAL IV SCH ×3 (05:44→21:35)
[2021-08-19 07:19] LABS: Basophils # (auto) 0.02 K/uL (0-0.2); Basophils % (auto) 0.2 %; Eosinophils # (auto) 0.14 K/uL (0-0.5); Eosinophils % (auto) 1.2 %; Hematocrit (blood only) 32.7 % (37-47); Hemoglobin 10.6 g/dL (12.0-16.0); Immature Granulocytes # (auto) 0.03 K/uL (0.00-0.02); Immature Granulocytes % (auto) 0.3 %; Lymphocytes # (auto) 2.06 K/uL (1.2-3.4); Lymphocytes % (auto) 17.5 %; Mean Corpuscular Hgb Conc 32.4 g/dL (32-36); Mean Corpuscular Volume 92.6 fL (80-100); Mean Platelet Volume 9.7 fL (7.4-10.4); Monocytes # (auto) 1.22 K/uL (0.11-0.59); Monocytes % (auto) 10.4 %; Neutrophils # (auto) 8.29 K/uL (1.4-6.5); Neutrophils % (auto) 70.4 %; Platelet Count 191 K/uL (130-400); RDW Coefficient of Variation 14.2 % (11.5-14.5); Red Blood Count 3.53 M/uL (4.2-5.4); White Blood Count 11.76 K/uL (4.8-10.8)
[2021-08-19 07:43] LABS: BUN Creatinine Ratio 15.3 (10-20); Calcium 8.4 mg/dl (8.5-10.1); Creatinine Clr Calc Pharmacy 55.9 ml/min; Est GFR (African American) 92.6 ml/min; Est GFR (Non-African American) 79.9 ml/min; Potassium 3.7 mmol/L (3.5-5.1)
[2021-08-19] MEDS: INSULIN GLARGINE SOLOSTAR 100 UNITS/ML 3 ML PEN SC SCH ×2 (08:48→21:22)
[2021-08-19] MEDS: ATORVASTATIN 40 MG TAB PO SCH (08:48)
[2021-08-19] MEDS: INSULIN ASPART 100 UNITS/ML 3 ML PEN SC SCH ×4 (08:49→21:22)
--- NOTE | 2021-08-19 09:41 | Progress Notes ---
DATE OF SERVICE: 08/19/2021. SUBJECTIVE: An 81-year-old white female postoperative day 1 from IM nailing of left intertrochanteri c fracture. We also aspirated the knee effusion. She is doing well this morning. Denies any pain. She is awake, alert and oriented. Looks comfortable. OBJECTIVE: VITAL SIGNS: Temperature 36.6. Vital signs are stable. GENERAL: Physical examination shows a pleasant, elderly, frail female. Lying in bed, looks comforta ble. EXTREMITIES: Examination of the left leg reveals the leg to be well aligned. Her dressing is clean, dry and intact. She does have a small knee effusion. She can dorsiflex and plantarflex her foot ap propriately. She is neurologically intact. LABORATORY DATA: Hemoglobin 10.6. Hematocrit 32.7. White cell count 11.76. Electrolytes are stable. ASSESSMENT: An 81-year-old white female with multiple medical comorbidities including poorly control led diabetes as well as history of PE in the past, now postoperative day 1 from IM nailing of a left intertrochanteric fracture and aspiration of her knee hemarthrosis. There is no apparent fracture in the knee. She is doing well. Pain is controlled. She is neurologically intact. Hemoglobin stable . PLAN: 1. DVT prophylaxis include thigh-high TEDs, SCDs, and I would recommend Lovenox. We will start at 2 4 hours postop. Based on her size, I think probably 30 mg once a day is reasonable. 2. PT/OT: She can weight bear as tolerated, left lower extremity. 3. Pain control: Seems to be doing okay with current pain regimen. 4. Medical management: As per the medicine service. 5. Disposition: She is orthopedically okay for discharge any time. I would recommend probably one month of Lovenox injections for her. I would recommend 30 mg once a day. Any orthopedic questions c an be directed to me at [phone]. Job ID: [id number]
--- NOTE | 2021-08-19 09:53 | Hospitalist Progress Note ---
Date of Service August 19, 2021 Assessment & Plan (1) Acute pain of left lower extremity: Plan: 1) Left intertrochanteric fracture -S/p mechanical fall, XR demonstrating acute nondisplaced L intertrochanteric fracture with possible mild comminution. Likely underlying osteoporosis/osteopenia -Currently POD1 from L hip IM nailing repair, recovering well and cleared for discharge by orthopedics -Would strongly benefit from inpatient rehab/SNF, outpatient bone health evaluation and possible vitamin D supplementation -PT/OT ordered -Scheduled Tylenol for postop pain -Case management seeking placement in rehab 2) Chronic pulmonary emboli -Chronic PE noted in 10/2018 and was previously on anticoagulation -Currently stable without negative CXR, no dyspnea and consistent O2 saturation above 90% since ED arrival -Uncertain as to what anticoagulation she was on in the past, taking daily aspirin currently -Lovenox 40 mg qd for anticoagulation 3) Hypertension -Holding home lisinopril prior to surgery -Continue home metoprolol -BPs stable currently at 130s-140s/80s 4) Hyperlipidemia -Continue home statin 5) Coronary artery disease -Acute [place] in past s/p stent placement in LAD -Normal EKG on admission -Holding home aspirin prior to surgery to reduce bleeding risk -Continue metoprolol 6) Diabetes -Reportedly poorly controlled, A1C 10.6% as of July 2019 -Lantus 20u daily at home -Lantus 4u BID, Novolog ISS in hospital FENGI: NPO after midnight Code status:Full DVT ppx:Lovenox 40 mg qAM Isolation:none Dispo: acute rehab most likely Admission and Anticipated Discharge Date Admission Date: August 17, 2021 Supervising Physician Co-Signing Physician Notes I personally examined the patient and verified all plaza points of history and exam, discussed case, and agree with decision making with Dr Tamayo. feeling ok eating. no significant pain. Vitals noted, in general she is awake and alert pleasant no distress. HEENT normocephalic atraumatic mucous membranes moist. Breathing unlabored no accessory muscle use good effort. Skin shows no rashes no pallor or icterus. Presumably osteoporotic hip fracturepost op, PT/OT, anticipate need for rehab Presumed osteoporosisoutpatient bone health work-up and management VTE historyaggressive DVT prophylaxis Probably mild to moderate dementia by h istoryreassurance/reorientation/supportive care. doing surprsingly well in this regard at this time. Otherwise as above Subjective Pt feels well, states her leg and hip pain are minimal. Recalls getting surgery day prior, did not recognize me today. Still amenable to rehab after discharge Review of Systems Review of Systems: +Minor L leg pain Physical Exam Physical Exam: General: well-appearing woman laying in bed, no acute distress HEENT: moist mucous membranes, trachea midline CV:RRR, normal S1, S2 Resp:CTAB, unlabored respirations Abdomen:soft, nontender, nondistended Neuro:5/5 strength of b/l UE, RLE, strength testing of LLE limited by pain, no sensory deficits of b/l LE MSK: FROM of b/l UE and RLE, ROM testing of LLE limited by pain, tenderness of L anterior thigh and hip Extremities: no edema, strong distal pulses b/l LE Skin: warm and dry, no lesions or swelling Results & Data Results & Data ([facility]) Vital Signs (Past 12 Hours) Vital Signs Temp Pulse Pulse Resp BP Pulse Ox 08/19/21 09:33 93 08/19/21 07:54 36.6 C 100 H 18 124/81 97 08/19/21 03:28 36.9 C 95 H 14 95/61 L 95 08/18/21 22:16 37.3 C 107 H 16 95/57 L 95 Resident Activity Tracking Resident Involvement: Resident Care Provided Care Provided: Adult Hospital Medicine
[2021-08-19] MEDS: METOPROLOL SUCC 25MG EXT REL TAB PO SCH (10:14)
[2021-08-19] MEDS: ACETAMINOPHEN 325 MG TAB PO PRN (12:14)
[2021-08-19] MEDS: ENOXAPARIN INJ 30 MG/0.3 ML SYR SQ SCH (16:10)
--- NOTE | 2021-08-19 18:52 | Billing Data ---
Date of Service August 19, 2021 Coding Level of Care Code 45532 Subseq Hosp Care Lvl 2
[2021-08-20] MEDS: ACETAMINOPHEN 1,000 MG/100 ML VIAL IV SCH ×2 (05:26→13:56)
[2021-08-20 06:26] LABS: Hematocrit (blood only) 28.6 % (37-47); Hemoglobin 9.3 g/dL (12.0-16.0); Mean Corpuscular Hemoglobin 30.1 pg (25-34); Mean Corpuscular Hgb Conc 32.5 g/dL (32-36); Mean Corpuscular Volume 92.6 fL (80-100); Mean Platelet Volume 9.7 fL (7.4-10.4); Platelet Count 156 K/uL (130-400); RDW Coefficient of Variation 14.3 % (11.5-14.5); RDW Standard Deviation 48.1 fL (36.4-46.3); Red Blood Count 3.09 M/uL (4.2-5.4); White Blood Count 9.63 K/uL (4.8-10.8)
[2021-08-20 07:01] LABS: BUN Creatinine Ratio 20.6 (10-20); Calcium 8.5 mg/dl (8.5-10.1); Creatinine Clr Calc Pharmacy 67.3 ml/min; Est GFR (African American) 99.6 ml/min; Potassium 3.9 mmol/L (3.5-5.1)
[2021-08-20] MEDS: ATORVASTATIN 40 MG TAB PO SCH (09:20)
[2021-08-20] MEDS: INSULIN ASPART 100 UNITS/ML 3 ML PEN SC SCH ×4 (09:20→20:51)
[2021-08-20] MEDS: INSULIN GLARGINE SOLOSTAR 100 UNITS/ML 3 ML PEN SC SCH ×2 (09:20→20:52)
[2021-08-20] MEDS: METOPROLOL SUCC 25MG EXT REL TAB PO SCH (09:21)
--- NOTE | 2021-08-20 09:49 | Progress Notes ---
DATE OF SERVICE: 08/20/2021 SUBJECTIVE: An 81-year-old white female postop day 2 from IM nailing of a left intertrochanteric fra cture as well as knee aspiration for hemarthrosis. She is doing well. She denies any significant pa in this morning. OBJECTIVE: VITAL SIGNS: Temperature 36.8. Vital signs are stable. PHYSICAL EXAMINATION: GENERAL: Shows a frail, elderly female. She is sitting up in bed and looks comfortable. EXTREMITIES: Examination of the left leg reveals the dressing to be clean, dry and intact. Leg is w ell aligned. She can dorsiflex and plantarflex her foot appropriately. She does have a small recurr ent knee effusion, but much improved. LABORATORY DATA: Hemoglobin 9.3. Hematocrit 28.6. Electrolytes are stable. ASSESSMENT: An 81-year-old white female with a history of pulmonary emboli in the past, postoperativ e day 2 from intramedullary nailing of a left intertrochanteric fracture along with aspiration of kne e hemarthrosis. She is doing well. Pain seems to be controlled. PLAN: 1. DVT prophylaxis includes thigh-high TEDs, SCDs, and she is now on Lovenox once a day and we will plan on that probably for 1 month. 2. PT/OT. She can weight bear as tolerated in the left lower extremity. 3. Pain control, doing okay with current pain regimen. 4. Medical management as per the medicine service. 5. Disposition: She is orthopedically okay for discharge any time medically stable. I need to see her back somewhere between 2 and 3 weeks out from surgery date. Any orthopedic questions can be dire cted to me at [phone]. Job ID: [id number]
--- NOTE | 2021-08-20 10:17 | Hospitalist Progress Note ---
Date of Service August 20, 2021 Assessment & Plan (1) Acute pain of left lower extremity: Plan: 1) Left intertrochanteric fracture -S/p mechanical fall, XR demonstrating acute nondisplaced L intertrochanteric fracture with possible mild comminution. Likely underlying osteoporosis/osteopenia -Currently POD2 from L hip IM nailing repair 08/18, recovering well and cleared for discharge by orthopedics -Would strongly benefit from inpatient rehab/SNF, outpatient bone health evaluation and possible vitamin D supplementation -PT/OT ordered -Scheduled Tylenol for postop pain -Case management seeking placement in rehab 2) Chronic pulmonary emboli -Chronic PE noted in 10/2018 and was previously on anticoagulation -Currently stable without negative CXR, no dyspnea and consistent O2 saturation above 90% since ED arrival -Uncertain as to what anticoagulation she was on in the past, taking daily aspirin currently -Lovenox 40 mg qd for anticoagulation 3) Hypertension -Holding home lisinopril prior to surgery -Continue home metoprolol -BPs stable currently 4) Hyperlipidemia -Continue home statin 5) Coronary artery disease -Acute [place] in past s/p stent placement in LAD -Normal EKG on admission -Holding home aspirin prior to surgery to reduce bleeding risk -Continue metoprolol 6) Diabetes -Reportedly poorly controlled, A1C 10.6% as of July 2019 -Lantus 20u daily at home -Lantus 4u BID, Novolog ISS in hospital FENGI: NPO after midnight Code status:Full DVT ppx:Lovenox 40 mg qAM Isolation:none Dispo: acute rehab most likely Admission and Anticipated Discharge Date Admission Date: August 17, 2021 Supervising Physician Co-Signing Physician Notes I personally examined the patient and verified all plaza points of history and exam, discussed case, and agree with decision making with Dr Tamayo. eating breakfast - cleared most of tray. pain under good control. Vitals noted, in general she is awake and alert pleasant no distress. HEENT normocephalic atraumatic mucous membranes moist. Breathing unlabored no accessory muscle use good effort. Skin shows no rashes no pallor or icterus. Presumably osteoporotic hip fracturepost op, PT/OT, anticipate need for rehab - case management working on placement Presumed osteoporosisoutpatient bone health work-up and management VTE historylovenox proph ( would continue this after discharge given her hx) Probably mild to moderate dementia by historyreassurance/reorientation/supportive care. doing surprisingly well in this regard at this time. Otherwise as above Subjective Pt feels well, denies any leg or hip pain today. States she hasn't been walking yet but denying any acute complaints. Was able to remember interacting with me previously during this hospitalization. Still amenable to rehab after discharge Review of Systems Review of Systems: Negative per Subjective Physical Exam Physical Exam: General: well-appearing woman laying in bed, no acute distress HEENT: moist mucous membranes, trachea midline CV:RRR, normal S1, S2 Resp:CTAB, unlabored respirations Abdomen:soft, nontender, nondistended Neuro:5/5 strength of b/l UE, RLE, 4/5 strength of LLE, no sensory deficits of b/l LE MSK: ROM testing of LLE deferred, no tenderness of L anterior thigh and hip Extremities: no edema, strong distal pulses b/l LE Skin: warm and dry, no lesions or swelling Results & Data Results & Data ([facility]) Vital Signs (Past 12 Hours) Vital Signs Temp Pulse Resp BP Pulse Ox 08/20/21 07:36 36.8 C 79 18 97/62 L 98 Resident Activity Tracking Resident Involvement: Resident Care Provided Care Provided: Adult [facility]
[2021-08-20] MEDS: ACETAMINOPHEN 325 MG TAB PO PRN (13:58)
[2021-08-20] MEDS: ENOXAPARIN INJ 30 MG/0.3 ML SYR SQ SCH (15:34)
--- NOTE | 2021-08-20 16:11 | Billing Data ---
Date of Service August 20, 2021 Coding Level of Care Code 45229 Subseq Hosp Care Lvl 2
[2021-08-21 06:07] LABS: Hematocrit (blood only) 27.2 % (37-47); Hemoglobin 8.9 g/dL (12.0-16.0); Mean Corpuscular Hemoglobin 30.2 pg (25-34); Mean Corpuscular Hgb Conc 32.7 g/dL (32-36); Mean Corpuscular Volume 92.2 fL (80-100); Mean Platelet Volume 10.1 fL (7.4-10.4); Platelet Count 179 K/uL (130-400); RDW Coefficient of Variation 14.2 % (11.5-14.5); RDW Standard Deviation 48.3 fL (36.4-46.3); Red Blood Count 2.95 M/uL (4.2-5.4); White Blood Count 7.56 K/uL (4.8-10.8)
[2021-08-21 06:48] LABS: BUN Creatinine Ratio 25.6 (10-20); Calcium 8.2 mg/dl (8.5-10.1); Creatinine Clr Calc Pharmacy 65.1 ml/min; Est GFR (African American) 98.5 ml/min; Potassium 3.8 mmol/L (3.5-5.1)
--- NOTE | 2021-08-21 08:11 | Progress Notes ---
DATE OF SERVICE: 08/21/2021 SUBJECTIVE: An 81-year-old female postop day 3 from IM nailing of a left intertrochanteric fracture and knee aspiration. She is doing pretty well. Once again, denies any pain. OBJECTIVE: VITAL SIGNS: Temperature 37.5. Vital signs are stable. PHYSICAL EXAMINATION: GENERAL: Shows a frail, elderly female. She is lying in bed, looks comfortable. EXTREMITIES: Examination of the left leg reveals it to be well aligned. Dressing is clean, dry and intact. Her thigh is soft and supple. She is neurologically intact. Small knee effusion. LABORATORY DATA: Hemoglobin 8.9. Hematocrit 27.2. Electrolytes are stable. ASSESSMENT: An 81-year-old female postoperative day 3 from intramedullary nailing of a left intertro chanteric fracture and knee aspiration. She is doing well. Hemoglobin is stable. PLAN: 1. DVT prophylaxis includes thigh-high TEDs, SCDs, and Lovenox for a month. 2. PT/OT. She can weight bear as tolerated. 3. Medical management as per medicine service. 4. Disposition: Orthopedically okay for discharge any time. I need to see her back in 2-3 weeks out from surgery date. Any orthopedic questions can be directed to me at [phone]. Job ID: [id number]
[2021-08-21] MEDS: INSULIN ASPART 100 UNITS/ML 3 ML PEN SC SCH ×4 (09:02→21:00)
[2021-08-21] MEDS: INSULIN GLARGINE SOLOSTAR 100 UNITS/ML 3 ML PEN SC SCH ×2 (09:12→20:59)
[2021-08-21] MEDS: METOPROLOL SUCC 25MG EXT REL TAB PO SCH (09:14)
[2021-08-21] MEDS: ATORVASTATIN 40 MG TAB PO SCH (09:14)
--- NOTE | 2021-08-21 13:05 | Hospitalist Progress Note ---
Date of Service August 21, 2021 Assessment & Plan (1) Acute pain of left lower extremity: Plan: 1) Left intertrochanteric fracture -S/p mechanical fall, XR demonstrating acute nondisplaced L intertrochanteric fracture with possible mild comminution. Likely underlying osteoporosis/osteopenia -Currently POD3 from L hip IM nailing repair 08/18, recovering well and cleared for discharge by orthopedics. Will d/c [facility] today -Would strongly benefit from inpatient rehab/SNF, outpatient bone health evaluation and possible vitamin D supplementation -PT/OT ongoing -Scheduled Tylenol for postop pain -Case management seeking placement to SNF 2) Chronic pulmonary emboli -Chronic PE noted in 10/2018 and was previously on anticoagulation -Currently stable without negative CXR, no dyspnea and consistent O2 saturation above 90% since ED arrival -Uncertain as to what anticoagulation she was on in the past, taking daily aspirin at home currently -Lovenox 40 mg qd for anticoagulation, will continue after discharge for 1 month per orthopedics for DVT prophylaxis, not chronic PE management 3) Hypertension -Continue home metoprolol -BPs stable currently 4) Hyperlipidemia -Continue home statin 5) Coronary artery disease -Acute [place] in past s/p stent placement in LAD -Normal EKG on admission -Home aspirin held before surgery -Continue metoprolol, atorvastatin -Continuing Lovenox for DVT prophylaxis, anticoagulation effect expected to help CAD as well 6) Diabetes -Reportedly poorly controlled, A1C 10.6% as of July 2019 -Lantus 20u daily at home -Lantus 4u BID, Novolog ISS in hospital FENGI: Regular Code status:Full DVT ppx:Lovenox 40 mg qAM Isolation:none Dispo: SNF most likely Admission and Anticipated Discharge Date Admission Date: August 17, 2021 Supervising Physician Co-Signing Physician Notes Patient seen and examined with PGY-1 Dr. Tamayo. Agree with history, exam findings, assessment and plan of care as outlined. In brief, Ms. Lu is an 81 year old female with hx of chronic PE, HTN, CAD, DM admitted with left intertrochanteric hip fracture. s/p IM nail on 08/18. Having some hip pain, but in general feel ok. Denies dyspnea, chest pain. VS and nursing notes reviewed. Dressing to the left proximal lateral hip is intact. There is some old blood on the edge of the dressing, but otherwise the dressing is dry and intact. 1. Left intertrochanteric hip fracture. IM nail on 08/18. PT/OT. May need placement. DVT prophylaxis with Lovenox 40mg for the next month. 2. Chronic PE. Completed course of anticoagulation. 3. HTN. Held Lisinopril prior to surgery. Continue metoprolol.. 4. HLD/CAD. Prior stent in LAD. Continue home statin, metoprolol. Aspirin held. 5. DM. A1C 10.6%. basal bolus insulin. Dispo: awaiting placement Subjective Pt feels well, denying acute complaints. No leg or hip pain, numbness. Has not been getting out of bed much but is tolerating physical therapy in bed. Amenable to going to SNF after discharge. Review of Systems Review of Systems: Negative per subjective Physical Exam Physical Exam: General: well-appearing woman laying in bed, no acute distress HEENT: moist mucous membranes, trachea midline CV:RRR, normal S1, S2 Resp:CTAB, unlabored respirations Abdomen:soft, nontender, nondistended Neuro:5/5 strength of b/l UE, RLE, 4/5 strength of LLE, no sensory deficits of b/l LE MSK: ROM testing of LLE limited by discomfort, no tenderness of L anterior thigh and hip Extremities: no edema, strong distal pulses b/l LE Skin: warm and dry, no lesions or swelling. L hip surgical site healing well with minor crusted blood around incision site Results & Data Results & Data ([facility]) Vital Signs (Past 12 Hours) Vital Signs Temp Pulse Resp BP Pulse Ox 08/21/21 07:30 37.0 C 90 18 118/73 90 Resident Activity Tracking Resident Involvement: Resident Care Provided Care Provided: Adult [facility]
[2021-08-21] MEDS: ENOXAPARIN INJ 30 MG/0.3 ML SYR SQ SCH (15:51)
[2021-08-22 06:29] LABS: Hematocrit (blood only) 28.8 % (37-47); Hemoglobin 9.3 g/dL (12.0-16.0); Mean Corpuscular Hemoglobin 29.8 pg (25-34); Mean Corpuscular Hgb Conc 32.3 g/dL (32-36); Mean Corpuscular Volume 92.3 fL (80-100); Mean Platelet Volume 9.4 fL (7.4-10.4); Platelet Count 221 K/uL (130-400); RDW Coefficient of Variation 14.3 % (11.5-14.5); RDW Standard Deviation 48.8 fL (36.4-46.3); Red Blood Count 3.12 M/uL (4.2-5.4); White Blood Count 6.96 K/uL (4.8-10.8)
[2021-08-22 08:15] LABS: BUN Creatinine Ratio 24.9 (10-20); Calcium 8.8 mg/dl (8.5-10.1); Creatinine Clr Calc Pharmacy 65.1 ml/min; Est GFR (African American) 98.5 ml/min; Potassium 3.9 mmol/L (3.5-5.1)
[2021-08-22] MEDS: METOPROLOL SUCC 25MG EXT REL TAB PO SCH (08:20)
[2021-08-22] MEDS: ATORVASTATIN 40 MG TAB PO SCH (08:20)
[2021-08-22] MEDS: INSULIN GLARGINE SOLOSTAR 100 UNITS/ML 3 ML PEN SC SCH ×2 (09:42→20:52)
[2021-08-22] MEDS: INSULIN ASPART 100 UNITS/ML 3 ML PEN SC SCH ×4 (09:42→20:53)
--- NOTE | 2021-08-22 11:00 | Hospitalist Progress Note ---
Date of Service August 22, 2021 Assessment & Plan (1) Acute pain of left lower extremity: Plan: 1) Left intertrochanteric fracture -S/p mechanical fall, XR demonstrating acute nondisplaced L intertrochanteric fracture with possible mild comminution. Likely underlying osteoporosis/osteopenia -Currently POD4 from L hip IM nailing repair 08/18, recovering well and cleared for discharge by orthopedics. Jose d/c on 08/21 -Would strongly benefit from inpatient rehab/SNF, outpatient bone health evaluation and possible vitamin D supplementation -PT/OT not going well due to patient's pain- scheduled Tylenol for postop pain, also ordered oxycodone PRN and pre-PT/OT -Continue Lovenox 40 mg qd after discharge for 1 month per orthopedics for DVT prophylaxis, not chronic PE management -Case management seeking placement to SNF 2) Chronic pulmonary emboli -Chronic PE noted in 10/2018 and was previously on anticoagulation -Currently stable without negative CXR, no dyspnea and consistent O2 saturation above 90% since ED arrival -Uncertain as to what anticoagulation she was on in the past, taking daily aspirin at home currently 3) Hypertension -Continue home metoprolol -BPs stable currently 4) Hyperlipidemia -Continue home statin 5) Coronary artery disease -Acute [place] in past s/p stent placement in LAD -Normal EKG on admission -Home aspirin held before surgery -Continue metoprolol, atorvastatin -Continuing Lovenox for DVT prophylaxis, anticoagulation effect expected to help CAD as well 6) Diabetes -Reportedly poorly controlled, A1C 10.6% as of July 2019 -Lantus 20u daily at home -Lantus 4u BID, Novolog ISS in hospital FENGI: Carb consistent Code status:Full DVT ppx:Lovenox 40 mg qAM Isolation:none Dispo: SNF most likely Admission and Anticipated Discharge Date Admission Date: August 17, 2021 Supervising Physician Co-Signing Physician Notes Patient seen and examined independently of PGY-1 Dr. Tamayo. Agree with history, exam findings, assessment and plan of care as outlined. In brief, Ms. Lu is an 81 year old female with hx of chronic PE, HTN, CAD, DM admitted with left intertrochanteric hip fracture. s/p IM nail on 08/18. She has been up from the bed to the chair today. Does not remember having any significant pain with the transfer. She thinks that she may have use the walker for that short few steps. VS and nursing notes reviewed. 1. Left intertrochanteric hip fracture. IM nail on 08/18. PT/OT. May need placement. DVT prophylaxis with Lovenox 40mg for the next month. Will need follow-up in 2 to 3 weeks with orthopedics. 2. Chronic PE. Completed course of anticoagulation. 3. HTN. Held Lisinopril prior to surgery. Continue metoprolol.. 4. HLD/CAD. Prior stent in LAD. Continue home statin, metoprolol. Aspirin held. 5. DM. A1C 10.6%. basal-bolus insulin. Dispo: Medically stable for discharge. Awaiting placement. Subjective Pt feels well, denying acute complaints. Still having some soreness of L hip and knee but denies weakness or numbness. Has been trying to get out of bed a bit more but still not engaging fully with PT/OT due to pain. Amenable to SNF after discharge. Review of Systems Review of Systems: +L hip and knee pain Physical Exam Physical Exam: General: well-appearing woman laying in bed, no acute distress HEENT: moist mucous membranes, trachea midline CV:RRR, normal S1, S2 Resp:CTAB, unlabored respirations Abdomen:soft, nontender, nondistended Neuro:5/5 strength of RLE, 4/5 strength of LLE, no sensory deficits of b/l LE MSK: ROM testing of LLE limited by discomfort, some minor tenderness of L anterior thigh, hip and knee Extremities: no edema, strong distal pulses b/l LE Skin: warm and dry, no lesions or swelling. L hip surgical site healing well with minor crusted blood around incision site Results & Data Results & Data ([facility]) Vital Signs (Past 12 Hours) Vital Signs Temp Pulse Resp BP Pulse Ox Pulse Ox 08/22/21 07:42 36.7 C 79 16 120/76 93 08/21/21 23:00 92 Resident Activity Tracking Resident Involvement: Resident Care Provided Care Provided: Adult [facility]
--- NOTE | 2021-08-22 11:27 | Progress Notes ---
DATE OF SERVICE: 08/22/2021 SUBJECTIVE: An 81-year-old female postop day 4 from IM nailing of a left intertrochanteric fracture and knee aspiration. She is doing pretty well. Really no pain while lying in bed. No chest pain or shortness of breath. No new complaints. OBJECTIVE: VITAL SIGNS: Temperature is 36.7. Vital signs are stable. PHYSICAL EXAMINATION: GENERAL: A frail, elderly female. She is lying in bed, looks pretty comfortable. EXTREMITIES: Examination of the left leg reveals the dressing to be clean, dry and intact. Leg is w ell aligned. She can dorsiflex and plantarflex her foot appropriately. Some mild pain with hip agustin on. She has got a small knee effusion. Her extensor mechanism is intact. LABORATORY DATA: Hemoglobin 9.3. Hematocrit 28.8. Electrolytes are stable. ASSESSMENT: An 81-year-old female postoperative day 4 from intramedullary nailing of left intertroch anteric fracture and knee aspiration for hemarthrosis. Orthopedically, she is doing okay. Everythin g seemed stable. No new complaints. PLAN: 1. DVT prophylaxis includes thigh-high TEDs, SCDs, and Lovenox for 1 month. She does have a history of PE in the past. 2. PT/OT. She can fully weightbear as tolerated in the left lower extremity. 3. Pain control, seems to be doing well with current pain regimen. 4. Medical management as per the medicine service. 5. Disposition: She is orthopedically okay for discharge any time. I need to see her back in 2-3 w eeks from surgery date. Any orthopedic questions can be directed to me at [phone]. Job ID: [id number]
[2021-08-22] MEDS ORDERED: oxyCODONE HCL IR 5 MG TAB (IMMEDIATE RELEASE) PO PRN (11:28)
[2021-08-22] MEDS: ACETAMINOPHEN 500 MG TAB PO SCH ×2 (12:32→20:15)
[2021-08-22] MEDS: ENOXAPARIN INJ 30 MG/0.3 ML SYR SQ SCH (15:47)
[2021-08-23] MEDS: ACETAMINOPHEN 500 MG TAB PO SCH ×3 (03:42→20:03)
[2021-08-23] MEDS: ATORVASTATIN 40 MG TAB PO SCH (08:58)
[2021-08-23] MEDS: METOPROLOL SUCC 25MG EXT REL TAB PO SCH (08:58)
[2021-08-23] MEDS: INSULIN ASPART 100 UNITS/ML 3 ML PEN SC SCH ×4 (09:00→20:40)
[2021-08-23] MEDS: INSULIN GLARGINE SOLOSTAR 100 UNITS/ML 3 ML PEN SC SCH ×2 (09:01→20:41)
[2021-08-23 09:18] LABS: Hematocrit (blood only) 31.7 % (37-47); Hemoglobin 10.2 g/dL (12.0-16.0); Mean Corpuscular Hemoglobin 29.6 pg (25-34); Mean Corpuscular Hgb Conc 32.2 g/dL (32-36); Mean Corpuscular Volume 91.9 fL (80-100); Mean Platelet Volume 9.5 fL (7.4-10.4); Platelet Count 267 K/uL (130-400); RDW Coefficient of Variation 14.3 % (11.5-14.5); RDW Standard Deviation 48.5 fL (36.4-46.3); Red Blood Count 3.45 M/uL (4.2-5.4)
--- NOTE | 2021-08-23 09:44 | Hospitalist Progress Note ---
Date of Service August 23, 2021 Assessment & Plan (1) Acute pain of left lower extremity: Plan: 1) Left intertrochanteric fracture -S/p mechanical fall, XR demonstrating acute nondisplaced L intertrochanteric fracture with possible mild comminution. Likely underlying osteoporosis/osteopenia -Currently POD5 from L hip IM nailing repair 08/18, recovering well and cleared for discharge by orthopedics. Jose d/c on 08/21 -Would strongly benefit from inpatient rehab/SNF, outpatient bone health evaluation and possible vitamin D supplementation -PT/OT not going well due to patient's pain- scheduled Tylenol for postop pain, oxycodone PRN and pre-PT/OT -Continue Lovenox 40 mg qd after discharge for 1 month per orthopedics for DVT prophylaxis, not chronic PE management -Case management seeking placement to SNF 2) Chronic pulmonary emboli -Chronic PE noted in 10/2018 and was previously on anticoagulation -Currently stable without negative CXR, no dyspnea and consistent O2 saturation above 90% since ED arrival -Uncertain as to what anticoagulation she was on in the past, taking daily aspirin at home currently 3) Hypertension -Continue home metoprolol -BPs stable currently 4) Hyperlipidemia -Continue home statin 5) Coronary artery disease -Acute CT in past s/p stent placement in LAD -Normal EKG on admission -Home aspirin held before surgery. Continue after discharge. -Continue metoprolol, atorvastatin 6) Diabetes -Reportedly poorly controlled, A1C 10.6% as of July 2019 -Lantus 20u daily at home -Lantus 4u BID, Novolog ISS in hospital FENGI: Carb consistent Code status:Full DVT ppx:Lovenox 40 mg qAM Isolation:none Dispo: SNF most likely Admission and Anticipated Discharge Date Admission Date: August 17, 2021 Supervising Physician Co-Signing Physician Notes Patient seen and examined independently of PGY-1 Dr. Tamayo. Agree with history, exam findings, assessment and plan of care as outlined. In brief, Ms. Lu is an 81 year old female with hx of chronic PE, HTN, CAD, DM admitted with left intertrochanteric hip fracture. s/p IM nail on 08/18. No complaints today. Of note, her is a patient in the ICU and there are plans to extubate him today with no plans to re-intubate. She would like to go downstairs to see her . VS and nursing notes reviewed. 1. Left intertrochanteric hip fracture. IM nail on 08/18. PT/OT. May need placement. DVT prophylaxis with Lovenox 40mg for the next month. Will need follow-up in 2 to 3 weeks with orthopedics. 2. Chronic PE. Completed course of anticoagulation. 3. HTN. Held Lisinopril prior to surgery. Continue metoprolol.. 4. HLD/CAD. Prior stent in LAD. Continue home statin, metoprolol. Aspirin held. 5. DM. A1C 10.6%. basal-bolus insulin. Dispo: Medically stable for discharge. Subjective Pt feels well, denying acute complaints. Still having some soreness of L hip and knee but denies weakness or numbness. Has been trying to get out of bed a bit more but still not engaging fully with PT/OT due to pain. Amenable to SNF after discharge Notably, today she could not report any memory of why she came into the hospital. Questioned if we were in [place]. Did not know the current president and unable to recall the events of her hospital stay thus far. Review of Systems Review of Systems: +L hip and knee pain Physical Exam Physical Exam: General: well-appearing woman laying in bed, no acute distress HEENT: moist mucous membranes, trachea midline CV:RRR, normal S1, S2 Resp:CTAB, unlabored respirations Abdomen:soft, nontender, nondistended Neuro: AOx2, 5/5 strength of RLE, 4/5 strength of LLE, no sensory deficits of b/l LE MSK: less tenderness of L anterior thigh, hip and knee Extremities: no edema, strong distal pulses b/l LE Skin: warm and dry, no lesions or swelling. L hip surgical site healing well around incision site Results & Data Results & Data ([facility]) Vital Signs (Past 12 Hours) Vital Signs Temp Pulse Pulse Resp BP Pulse Ox 08/23/21 08:15 37.0 C 79 17 122/75 94 08/22/21 22:02 36.7 C 73 16 99/64 L 94 Resident Activity Tracking Resident Involvement: Resident Care Provided Care Provided: Adult [facility] Medicine
[2021-08-23 09:59] LABS: BUN Creatinine Ratio 17.9 (10-20); Calcium 9.2 mg/dl (8.5-10.1); Creatinine Clr Calc Pharmacy 57.5 ml/min; Est GFR (African American) 94.6 ml/min; Est GFR (Non-African American) 81.6 ml/min; Potassium 3.2 mmol/L (3.5-5.1)
[2021-08-23] MEDS: ENOXAPARIN INJ 30 MG/0.3 ML SYR SQ SCH (17:50)
[2021-08-24] MEDS: ACETAMINOPHEN 500 MG TAB PO SCH ×2 (04:20→12:14)
[2021-08-24 07:42] LABS: Hematocrit (blood only) 27.9 % (37-47); Hemoglobin 9.1 g/dL (12.0-16.0); Mean Corpuscular Hemoglobin 29.6 pg (25-34); Mean Corpuscular Hgb Conc 32.6 g/dL (32-36); Mean Corpuscular Volume 90.9 fL (80-100); Mean Platelet Volume 9.4 fL (7.4-10.4); Platelet Count 280 K/uL (130-400); RDW Coefficient of Variation 14.4 % (11.5-14.5); RDW Standard Deviation 47.8 fL (36.4-46.3); Red Blood Count 3.07 M/uL (4.2-5.4); White Blood Count 8.51 K/uL (4.8-10.8)
[2021-08-24 08:45] LABS: BUN Creatinine Ratio 15.7 (10-20); Calcium 8.6 mg/dl (8.5-10.1); Creatinine Clr Calc Pharmacy 53.7 ml/min; Est GFR (African American) 88.1 ml/min; Potassium 3.7 mmol/L (3.5-5.1)
--- NOTE | 2021-08-24 08:46 | Progress Notes ---
DATE OF SERVICE: 08/24/2021. SUBJECTIVE: An 81-year-old white female now 6 days out from IM nailing of a left intertrochanteric f racture as well as aspiration of a knee hemarthrosis. She is doing reasonably well. Denies any pain . No new complaints. OBJECTIVE: VITAL SIGNS: Temperature 36.8. Vital signs are stable. GENERAL: Physical examination shows a frail, elderly female. She is lying in bed. Looks pretty com fortable this morning. EXTREMITIES: Examination of the left hip and leg reveals the incision to be clean, dry, and intact. No drainage. She has got some moderate swelling in her thigh. Her leg lengths appear equal. Leg i s well aligned. Small knee effusion. She is neurologically intact. LABORATORY DATA: Labs are pending. ASSESSMENT: An 81-year-old white female now 6 days out from IM nailing of a left intertrochanteric f racture and aspiration of a knee hemarthrosis. She is doing pretty well. She does have a significan t thrombosis history. PLAN: 1. DVT prophylaxis to include thigh-high TEDs, SCDs, and Lovenox for 1 month. 2. PT/OT. She can weight bear as tolerated in the left lower extremity. 3. Pain control, doing okay with current pain regimen. 4. Medical management as per the medicine service. 5. Disposition: She is orthopedically okay for discharge. I believe she is going to be transferred today to a [facility] facility. I need to see her back 2-3 weeks out from surgery date. Any o rthopedic questions can be directed to me at [phone]. Job ID: [id number]
[2021-08-24] MEDS: METOPROLOL SUCC 25MG EXT REL TAB PO SCH (09:02)
[2021-08-24] MEDS: ATORVASTATIN 40 MG TAB PO SCH (09:02)
[2021-08-24] MEDS: INSULIN GLARGINE SOLOSTAR 100 UNITS/ML 3 ML PEN SC SCH (09:10)
[2021-08-24] MEDS: INSULIN ASPART 100 UNITS/ML 3 ML PEN SC SCH ×2 (09:11→14:13)
--- NOTE | 2021-08-24 13:02 | Discharge Summary ---
Date of Service August 24, 2021 Admission HPI Per Admitting Provider Pt is 81 yo F with PMH of HTN, HLD, DM2, cognitive impairment, acute AL with stent placement, chronic PEs, breast cancer in remission, multiple falls (including R proximal humerus fracture 2 years ago, R hip fracture s/p repair) presenting for mechanical fall. Pt apparently got her feet caught up by the radiator in her kitchen and fell earlier in AM, fall witnessed by teenage grandson. Did not experience any prec eding symptoms, fell on L side with most of fall contained to her torso and some bumping of her head. Did not lose consciousness, did not experience any dyspnea, chest pain, back pain, weakness, numbness or confusion. No seizure-like movements noted. Pt's [id number] called EMS who arrived within 15 minutes of fall. Pt unable to get up on her own, was assisted off the floor by EMS. In the ED, workup revealed negative CXR, XR of L femur showing acute nondisplaced intertrochanteric fracture. Pt received IV pain medication, was hemodynamically stable throughout. During evaluation, denied pain, weakness or numbness, no headache, vision change or bowel/bladder incontinence. Pt is poor historian, much of history was obtained by her son (nurse) at bedside and via phone with aewzukhe-mf-zuo who called EMS. Lives with but is regularly visited by son who helps administer her medications, also has a visiting nurse. Admission Exam Per Admitting Provider General: well-appearing woman laying in bed, no acute distress HEENT: moist mucous membranes, trachea midline CV:RRR, normal S1, S2 Resp:CTAB, unlabored respirations Abdomen:soft, nontender, nondistended Neuro:5/5 strength of b/l UE, RLE, strength testing of LLE limited by pain, no sensory deficits of b/l LE MSK: FROM of b/l UE and RLE, ROM testing of LLE limited by pain, tenderness of L anterior thigh and hip Extremities: no edema, strong distal pulses b/l LE Skin: warm and dry, no lesions or swelling Principal Diagnosis Left intertrochanteric fracture Discharge Exam General: well-appearing woman laying in bed, no acute distress HEENT: moist mucous membranes, trachea midline CV:RRR, normal S1, S2 Resp:CTAB, unlabored respirations Abdomen:soft, nontender, nondistended Neuro: AOx2, 5/5 strength of RLE, 4/5 strength of LLE, no sensory deficits of b/l LE MSK: less tenderness of L anterior thigh, hip and knee Extremities: no edema, strong distal pulses b/l LE Skin: warm and dry, no lesions or swelling. L hip surgical site healing well around incision site Discharge Data Allergies Allergy/AdvReac Type Severity Reaction Status Date / Time Penicillins Allergy Unknown Verified 08/17/21 11:28 Consultations 08/17/21 15:02 ED Decision to Admit Stat 08/17/21 15:31 Consult Orthopedic Surgery Routine Procedures Performed Operation Date: 08/18/21 07:00 Actual Procedures p Left Hip Long Troch Nail, Left Knee Aspiration(Left) - Jesus Nix MD Ordered Studies 08/18/21 FL femur LT 2V Routine Diabetes Follow up Diabetes Follow-up Needed for HgbA1c >9% Hospital Course (1) Acute pain of left lower extremity: 1) Left intertrochanteric fracture -S/p mechanical fall, XR demonstrating acute nondisplaced L intertrochanteric fracture with possible mild comminution. Likely underlying osteoporosis/osteopenia -Currently POD5 from L hip IM nailing repair 08/18, recovering well and cleared for discharge by orthopedics. Jose lobo/gonzales on 08/21 -Would strongly benefit from inpatient rehab/SNF, outpatient bone health evaluation and possible vitamin D supplementation -PT/OT not going well due to patient's pain- scheduled Tylenol for postop pain, oxycodone PRN and pre-PT/OT -Continue Lovenox 40 mg qd after discharge for 1 month per orthopedics for DVT prophylaxis, not chronic PE management -Case management seeking placement to SNF 2) Chronic pulmonary emboli -Chronic PE noted in 10/2018 and was previously on anticoagulation -Currently stable without negative CXR, no dyspnea and consistent O2 saturation above 90% since ED arrival -Uncertain as to what anticoagulation she was on in the past, taking daily aspirin at home currently 3) Hypertension -Continue home metoprolol -BPs stable currently 4) Hyperlipidemia -Continue home statin 5) Coronary artery disease -Acute AL in past s/p stent placement in LAD -Normal EKG on admission -Home aspirin held before surgery. Continue after discharge. -Continue metoprolol, atorvastatin 6) Diabetes -Reportedly poorly controlled, A1C 10.6% as of July 2019 -Lantus 20u daily at home -Lantus 4u BID, Novolog ISS in hospital FENGI: Carb consistent Code status:Full DVT ppx:Lovenox 40 mg qAM Isolation:none Dispo: SNF most likely Total Time Total Time Spent Total Time Spent (In Minutes): see attending attestation Discharge Plan Discharge Items Patient Disposition: Transfer Jail Fac Reason For Visit: MECHANICAL FALL WITH HIP FRACTURE Discharge Diagnosis: IM Nail Left Hip Fracture Left Knee Effusion Activity: Per Instructions section Weightbearing: Full weightbearing Non-emergency contact: Primary Care Provider Call non-emergency contact if: you have any medication questions, your symptoms worsen, your pain is not controlled and your pain is worsening Follow-up/Referrals: Ben Paula DO [Primary Care Provider] - Jesus Nix MD [Physician] - (Ortho Follow-up 2-3 weeks from surgery date.) Diet: Carb Consistent or DM2 and Heart Healthy Addtl Attending Provider Instructions: Hospitalized on 08/17, discharged 08/24. 1) Left intertrochanteric fracture -S/p mechanical fall, XR demonstrating acute nondisplaced L intertrochanteric fracture with possible mild comminution. Likely underlying osteoporosis/osteopenia -Currently POD6 from L hip IM nailing repair 08/18, recovering well and cleared for discharge by orthopedics. Jose lobo/gonzales on 08/21 -Would strongly benefit from outpatient bone health evaluation and possible vitamin D supplementation -PT/OT during stay did not go well due to patient's pain- scheduled Tylenol for postop pain, oxycodone PRN and pre-PT/OT -Continue Lovenox 40 mg qd after discharge for 1 month per orthopedics for DVT prophylaxis -F/u with orthopedics in 2 weeks (Dr. Jesus Nix at [facility]) 2) Chronic pulmonary emboli -Chronic PE noted in 10/2018 and was previously on anticoagulation -Currently stable with negative CXR, no dyspnea and consistent O2 saturation above 90% since ED arrival -Uncertain as to what anticoagulation she was on in the past, taking daily aspirin at home currently 3) Hypertension -Continued home metoprolol -BPs stable throughout stay 4) Hyperlipidemia -Continue home statin 5) Coronary artery disease -Acute AL in past s/p stent placement in LAD -Normal EKG on admission -Home aspirin held before surgery. Continue after discharge. -Continued metoprolol, atorvastatin 6) Diabetes -Reportedly poorly controlled, A1C 10.6% as of July 2019 -Lantus 20u daily at home -Lantus 4u BID, Novolog ISS in hospital -BSGs typically high 100s-200s during stay Pending Studies at Discharge: No Stand-Alone Forms: My [facility] [employer]ODit Skilled Items Patient informed of condition?: Yes DNR: No Discharge Level of Care: Skilled Communicable Disease: No Discharge Prognosis: Improving Lines: None Urinary Catheter: No Medications and DC Order Prescriptions: Continued lisinopril 10 mg tablet 10 mg PO DAILY Qty: 90 RF: 3 metoprolol succinate 25 mg tablet extended release 24 hr 25 mg PO DAILY Qty: 90 RF: 3 atorvastatin 40 mg tablet 80 mg PO DAILY Qty: 180 RF: 11 aspirin [Ecotrin Low Strength] 81 mg Tablet,Delayed Release (Dr/Ec) 81 mg PO QAM Qty: 30 RF: 0 acetaminophen [Mapap (acetaminophen)] 325 mg Tablet 650 mg PO Q4H PRN (Reason: pain) Qty: 60 RF: 0 Lantus Solostar U-100 Insulin 100 unit/mL (3 mL) insulin pen 20 unit SC QPM RF: 0 Discharge Orders: Discharge Order (Routine); Ordered 08/24/21 Ordered By: Li Tamayo Admission Data Admit Date/Time: 08/17/21 15:38 Attending Provider: Venita Owens Admit Provider: Li Tamayo Primary Care Provider: Ben Paula Other Providers: Saurav Smith ; Collin Jack ; Jesus Nix Other Interventions: Discharge Summary Assessment (RN) Last Done: 08/24/21 14:01 Supervising Physician Co-Signing Physician Notes Patient seen and examined independently of PGY-1 Dr. Tamayo. Agree with history, exam findings, assessment and plan of care as outlined. In brief, Ms. Lu is an 81 year old female with hx of chronic PE, HTN, CAD, DM admitted with left intertrochanteric hip fracture. s/p IM nail on 08/18. No complaints today. Of note, her is a patient in the ICU and there are plans to extubate him today with no plans to re-intubate. She would like to go downstairs to see her . VS and nursing notes reviewed. 1. Left intertrochanteric hip fracture. IM nail on 08/18. PT/OT. May need placement. DVT prophylaxis with Lovenox 40mg for the next month. Will need follow-up in 2 to 3 weeks with orthopedics. 2. Chronic PE. Completed course of anticoagulation. 3. HTN. Held Lisinopril prior to surgery. Continue metoprolol.. 4. HLD/CAD. Prior stent in LAD. Continue home statin, metoprolol. Aspirin held. 5. DM. A1C 10.6%. basal-bolus insulin. Dispo: Medically stable for discharge. Resident Activity Tracking Resident Involvement: Resident Care Provided Care Provided: Adult Hospital Medicine
== END 2021-08-24 14:26 | DRG 481 ==
LOC: ED 10:26 → 3N 15:38 → SUATTDRO 15:38 → 3N 17:55

== ENCOUNTER 2021-10-07 05:44 | Observation (INO) ==
--- NOTE | 2021-10-07 05:56 | Emergency Department Note ---
Impression & Plan RB (rectal bleeding), Leukocytosis, Colitis, Acidosis, lactic ADMIT ED Provider Note HPI: Patient arrived to the ED via EMS ambulance The patient is an 81-year-old female with history of dementia, coronary artery disease, chronic PEs, diabetes not on oral anticoagulation, who presents the emergency department from home over concern for rectal bleeding. Per EMS repo rt, the patient has some dementia, tonight she had 2 episodes of vomiting that was reported by her son on their arrival, she also apparently had multiple episodes of rectal bleeding. On arrival here to the ED the patient is pleasant and cooperative, she is hemodynamically stable, she does not appear to be in any acute distress. She tells me she does not remember why she is here. ROS: -GI: Vomiting, lower GI bleeding *10 point review systems was conducted and is otherwise negative unless stated above *Outpatient medications and allergy history reviewed PE: General: Alert, NAD HEENT: Normocephalic, atraumatic, trachea midline Eyes: Extraocular eye movement is intact, no scleral erythema Pulmonary: Clear to auscultation bilaterally, no wheezing Cardio: Regular rate and rhythm GI: Abdomen is soft, mild tenderness to palpation without guarding or rigidity, rectal examination is performed with female RN at the bedside, patient does have a moderate amount of gross blood within the rectal vault : No suprapubic tenderness MSK: No evidence of trauma or malformation of the extremities, no edema Skin: No evidence of rash Neuro: Alert, no focal deficits Psychiatric: Cooperative night monitor: - An order was placed for continuous cardiac monitoring - Patient was noted to be in sinus rhythm with rate of 102 EKG: Rate: 108 Rhythm: Sinus rhythm Intervals: Within normal limits ST changes: No ST elevation Time: 0613 Medical Decision Making: Patient presented with concern for rectal bleeding. She has some underlying dementia according EMS report, she is unable to tell me why she is here. She is resting comfortably in bed at this time, in no acute distress on my initial evaluation. Occult stool test was performed with female RN at the bedside and is grossly positive. Labwork shows a stable hemoglobin at 13.0, there is a leukocytosis greater than 17,000, glucose is elevated at 315, serum bicarbonate level is 20. Troponin is slightly elevated at 0.15, patient denies any chest pain, EKG does not show any acute ischemic changes, patient does have acute renal failure creatinine today is 1.82 which is likely playing a role in her elevated troponin. Interventions included IV fluids with 2 L normal saline total, broad-spectrum IV antibiotics with vancomycin and cefepime. Imaging was obtained including CT imaging of the abdomen pelvis without contrast secondary to renal function, that shows evidence of what appears to be pancolitis with a focal area of a fluid collection in the right lower quadrant adjacent to the cecum, does not appear to be related to an abnormal appendix according to radiology report. I suspect that the patient's colitis is the source of her rectal bleeding and likely also the source of her leukocytosis and elevated lactic acid level. We will send for stool cultures. On re-evaluation the patient is resting comfortably, she remains mildly tachycardic, blood pressure is in the high 90s systolic. Will order COVID-19 testing as well as chest x-ray and urinalysis, patient was started on broad- spectrum antibiotics with vancomycin and cefepime. Type and screen was ordered. At this time the patient's hemoglobin is stable. Case was discussed with the on-call hospitalist, Dr. Morales, and the patient was admitted to the hospitalist service in stable condition. All of the above findings were discussed with the patient's son who was at the bedside who is in agreement to the above plan. CODE STATUS: Full code Diagnosis: 1. Lower GI bleed 2. Nonspecific pancolitis 3. Acute kidney injury 4. Lactic acidosis 5. Leukocytosis 6. Hyperglycemia Critical care time: 45 min -Stabilization of vital signs and lab abnormalities including lactic acidosis of 6.0 consistent with a septic state requiring IV fluid resuscitation at 30 cc/kg, initiation of broad-spectrum antibiotics, time spent at the bedside, interpretation of diagnostic studies, discussion with other physicians and ar rangement of admission Disposition: Admission Aly Goss DO Emergency Medicine Past Med/Surg History Medical History (Updated 10/07/21 @ 08:37 by Aly Goss DO) Diabetes Hypertension Myocardial infarction Surgical History History of heart artery stent Family History Other Family history non-contributory Social History Smoking Status: Former smoker Tobacco Type: Cigarettes Second Hand Exposure: No; Hx Alcohol Use: No Hx Substance Use: No Preferred Language: Uzbek Communication Ability: Effective Senior Counsel Commercial Required: No Beliefs That Will Affect Care: None marital status: 1 Current Living Situation: Spouse How many Children do You have: 3 Feels Safe at Home: Yes Assistive Devices: Walker Allergies Allergies Allergy/AdvReac Type Severity Reaction Status Date / Time Penicillins Allergy Unknown Verified 08/17/21 11:28 Home Meds Home Medications Medication Instructions Recorded Confirmed insulin glargine 100 unit/mL (3 20 unit SC QPM 08/17/21 08/17/21 mL) subcutaneous pen (Lantus Solostar U-100 Insulin) Previous Rx's Medication Instructions Recorded acetaminophen 325 mg tablet (Mapap 650 mg PO Q4H PRN #60 tab 08/10/19 (acetaminophen)) aspirin 81 mg tablet,delayed 81 mg PO QAM #30 tab 08/10/19 release (Ecotrin Low Strength) lisinopril 10 mg tablet 10 mg PO DAILY #90 tab 08/23/20 atorvastatin 40 mg tablet 80 mg PO DAILY #180 tab 09/01/20 metoprolol succinate 25 mg 25 mg PO DAILY #90 tab 09/01/20 tablet,extended release 24 hr Results & Data (ED) Vital Signs Vital Signs - 24 hr 10/07/21 05:58 10/07/21 06:04 10/07/21 06:16 Temperature 36.7 C 36.7 C Temperature Source Oral Oral Pulse Rate 108 H 110 H Pulse Rate [Apical] 113 H Respiratory Rate 18 18 18 Respiratory Effort / Characteristics Non-Labored Spontaneous Non-Labored Spontaneous Respiratory Depth Normal Normal Respiratory Pattern Regular Regular Blood Pressure 93/63 L Blood Pressure [Right Arm] 93/63 L Blood Pressure Mean 73 Blood Pressure Mean [Right Arm] 73 Blood Pressure Position Sitting Blood Pressure Position [Right Arm] Sitting Pulse Oximetry 96 97 96 Oxygen Delivery Method Room Air Room Air Room Air Sepsis Recent Fever Within 48 Hours No Sepsis New/Unexplained Change in Mental Status N/A Sepsis Action Taken by Nursing No Action Required Laboratory Data Result diagrams: 10/07/21 06:00 10/07/21 06:00 Lab Results 10/07/21 10/07/21 10/07/21 Range/Units 05:58 06:00 06:00 WBC 17.26 H (4.8-10.8) K/uL RBC 4.63 (4.2-5.4) M/uL Hgb 13.0 (12.0-16.0) g/dL Hct 41.9 (37-47) % MCV 90.5 (80-100) fL MCH 28.1 (25-34) pg MCHC 31.0 L (32-36) g/dL RDW Std Deviation 51.9 H (36.4-46.3) fL RDW Coeff of Parviz 15.5 H (11.5-14.5) % Plt Count 294 (130-400) K/uL MPV 9.8 (7.4-10.4) fL Immature Gran % (Auto) 0.3 % Neut % (Auto) 87.2 % Lymph % (Auto) 7.0 % [place] % (Auto) 5.4 % Eos % (Auto) 0.0 % Baso % (Auto) 0.1 % Neut # (Auto) 15.06 H (1.4-6.5) K/uL Lymph # (Auto) 1.20 (1.2-3.4) K/uL [place] # (Auto) 0.93 H (0.11-0.59) K/uL Eos # (Auto) 0.00 (0-0.5) K/uL Baso # (Auto) 0.01 (0-0.2) K/uL Immature Gran # (Auto) 0.06 H (0.00-0.02) K/uL PT 14.1 H (9.0-12.0) Seconds INR 1.4 H (0.9-1.1) APTT 29.0 (21.0-31.0) Seconds PTT Ratio 1.1 Sodium (136-145) mmol/L Potassium (3.5-5.1) mmol/L Chloride (98-107) mmol/L Carbon Dioxide (21-32) mmol/L Anion Gap (3-11) BUN (7-18) mg/dl Creatinine (0.6-1.2) mg/dl Est Cr Clr Drug Dosing ml/min Est GFR ( Amer) ml/min Est GFR (Non-Af Amer) ml/min BUN/Creatinine Ratio (10-20) Glucose (70-99) mg/dl Lactate (0.4-2.0) mmol/L Calcium (8.5-10.1) mg/dl Total Bilirubin (0.2-1) mg/dl AST (15-37) U/L ALT (12-78) Alkaline Phosphatase (45-117) U/L Troponin I (0-0.045) ng/ml Total Protein (6.4-8.2) gm/dl Albumin (3.4-5.0) gm/dl Globulin (2.5-4.0) gm/dl Albumin/Globulin Ratio (0.9-2) Lipase (73-393) U/L Beta-Hydroxybutyric Acd (0.2-2.81) mg/dl Procalcitonin (0-0.5) ng/ml POC Stool Occult Blood Positive A (Negative) Blood Type Antibody Screen 10/07/21 10/07/21 10/07/21 Range/Units 06:00 07:01 07:01 WBC (4.8-10.8) K/uL RBC (4.2-5.4) M/uL Hgb (12.0-16.0) g/dL Hct (37-47) % MCV (80-100) fL MCH (25-34) pg MCHC (32-36) g/dL RDW Std Deviation (36.4-46.3) fL RDW Coeff of Parviz (11.5-14.5) % Plt Count (130-400) K/uL MPV (7.4-10.4) fL Immature Gran % (Auto) % Neut % (Auto) % Lymph % (Auto) % [place] % (Auto) % Eos % (Auto) % Baso % (Auto) % Neut # (Auto) (1.4-6.5) K/uL Lymph # (Auto) (1.2-3.4) K/uL [place] # (Auto) (0.11-0.59) K/uL Eos # (Auto) (0-0.5) K/uL Baso # (Auto) (0-0.2) K/uL Immature Gran # (Auto) (0.00-0.02) K/uL PT (9.0-12.0) Seconds INR (0.9-1.1) APTT (21.0-31.0) Seconds PTT Ratio Sodium 138 (136-145) mmol/L Potassium 3.7 (3.5-5.1) mmol/L Chloride 103 (98-107) mmol/L Carbon Dioxide 20 L (21-32) mmol/L Anion Gap 15.0 H (3-11) BUN 30 H (7-18) mg/dl Creatinine 1.82 H (0.6-1.2) mg/dl Est Cr Clr Drug Dosing 21.3 ml/min Est GFR ( Amer) 29.7 ml/min Est GFR (Non-Af Amer) 25.6 ml/min BUN/Creatinine Ratio 16.5 (10-20) Glucose 315 H* (70-99) mg/dl Lactate 6.0 H* (0.4-2.0) mmol/L Calcium 9.9 (8.5-10.1) mg/dl Total Bilirubin 1.1 H (0.2-1) mg/dl AST 29 (15-37) U/L ALT 24 (12-78) Alkaline Phosphatase 379 H D (45-117) U/L Troponin I 0.152 H* (0-0.045) ng/ml Total Protein 8.2 (6.4-8.2) gm/dl Albumin 3.1 L (3.4-5.0) gm/dl Globulin 5.1 H (2.5-4.0) gm/dl Albumin/Globulin Ratio 0.6 L (0.9-2) Lipase 108 (73-393) U/L Beta-Hydroxybutyric Acd (0.2-2.81) mg/dl Procalcitonin (0-0.5) ng/ml POC Stool Occult Blood (Negative) Blood Type A Negative Antibody Screen NEGATIVE 10/07/21 Range/Units 07:01 WBC (4.8-10.8) K/uL RBC (4.2-5.4) M/uL Hgb (12.0-16.0) g/dL Hct (37-47) % MCV (80-100) fL MCH (25-34) pg MCHC (32-36) g/dL RDW Std Deviation (36.4-46.3) fL RDW Coeff of Parviz (11.5-14.5) % Plt Count (130-400) K/uL MPV (7.4-10.4) fL Immature Gran % (Auto) % Neut % (Auto) % Lymph % (Auto) % [place] % (Auto) % Eos % (Auto) % Baso % (Auto) % Neut # (Auto) (1.4-6.5) K/uL Lymph # (Auto) (1.2-3.4) K/uL [place] # (Auto) (0.11-0.59) K/uL Eos # (Auto) (0-0.5) K/uL Baso # (Auto) (0-0.2) K/uL Immature Gran # (Auto) (0.00-0.02) K/uL PT (9.0-12.0) Seconds INR (0.9-1.1) APTT (21.0-31.0) Seconds PTT Ratio Sodium (136-145) mmol/L Potassium (3.5-5.1) mmol/L Chloride (98-107) mmol/L Carbon Dioxide (21-32) mmol/L Anion Gap (3-11) BUN (7-18) mg/dl Creatinine (0.6-1.2) mg/dl Est Cr Clr Drug Dosing ml/min Est GFR ( Amer) ml/min Est GFR (Non-Af Amer) ml/min BUN/Creatinine Ratio (10-20) Glucose (70-99) mg/dl Lactate (0.4-2.0) mmol/L Calcium (8.5-10.1) mg/dl Total Bilirubin (0.2-1) mg/dl AST (15-37) U/L ALT (12-78) Alkaline Phosphatase (45-117) U/L Troponin I (0-0.045) ng/ml Total Protein (6.4-8.2) gm/dl Albumin (3.4-5.0) gm/dl Globulin (2.5-4.0) gm/dl Albumin/Globulin Ratio (0.9-2) Lipase (73-393) U/L Beta-Hydroxybutyric Acd (0.2-2.81) mg/dl Procalcitonin 3.59 H (0-0.5) ng/ml POC Stool Occult Blood (Negative) Blood Type Antibody Screen Administered Medications Vancomycin HCl 1,000 mg/ (Sodium Chloride) 520 mls @ 200 mls/hr IV NOW ONE Stop: 10/07/21 10:32 Last Admin: 10/07/21 08:36 Dose: 200 mls/hr Documented by: [id number] Sodium Chloride (Nss 1000ml) 1,000 mls @ 999 mls/hr IV .Q1H1M ONE Stop: 10/07/21 09:03 Last Admin: 10/07/21 08:22 Dose: 999 mls/hr Documented by: [id number] Discontinued Medications Sodium Chloride (Nss 1000ml) 1,000 mls @ 999 mls/hr IV .Q1H1M MARI Stop: 10/07/21 07:00 Last Admin: 10/07/21 06:12 Dose: 999 mls/hr Documented by: [id number] Cefepime HCl (Maxipime) 2,000 mg in 20 mls @ 5 mls/min IV NOW STA; Protocol Stop: 10/07/21 08:00 Last Admin: 10/07/21 08:23 Dose: 5 mls/min Documented by: [id number] Imaging Data Radiologist's Impression: Abdomen/Pelvis CT 10/07/21 05:52 CT SCAN OF THE ABDOMEN AND PELVIS WITHOUT IV CONTRAST CLINICAL HISTORY: Hematochezia. Lower GI bleeding. COMPARISON STUDY: No priors TECHNIQUE: CT scan of the abdomen and pelvis is performed from the lung bases to the proximal femora. Images are reviewed in the axial, sagittal, and coronal planes. IV contrast was not administered for this examination. Note that the examination was performed in significantly suboptimal fashion without oral and IV contrast. There is also significant motion artifact. A dose lowering technique was utilized adhering to the principles of ALARA. CT DOSE: 504.36 mGy.cm FINDINGS: Lung bases: The heart is enlarged and without pericardial effusion. The coronary arteries are densely calcified. There is a small hiatal hernia. Dependent airspace opacities are seen at both lung bases. No pleural effusion is identified. Liver: The unenhanced liver is normal in size, contour, and attenuation. There is no intrahepatic biliary ductal dilatation. Gallbladder: Calcified gallstones are noted with no CT evidence of acute cholecystitis. Spleen: Normal in size and attenuation. Pancreas: The unenhanced pancreas is atrophic and grossly unremarkable. Adrenal glands: Unremarkable. Kidneys: The unenhanced kidneys demonstrate cortical atrophy and are without hydronephrosis. There are no renal calculi identified. There is no evidence of contour deforming renal mass lesion. Abdominal vasculature: There is advanced atherosclerotic calcification and mild ectasia of the abdominal aorta. Bowel: There is diffuse colonic wall thickening seen from the right colon to the rectum. There is associated pericolonic inflammation and fluid, and the appearance is consistent with a nonspecific pancolitis. There is mild colonic diverticulosis without CT evidence of acute diverticulitis. No bowel obstruction is seen. The appendix is nonvisualized. There is a 1.6 cm round focus inflammat ion identified medial to the cecum seen on image #315. Peritoneum: There is no intraperitoneal free air or abdominal ascites. Lymphadenopathy: None. Pelvic viscera: The bladder is mildly distended but otherwise normal in a ppearance. The uterus and adnexa are normal as visualized. Skeletal structures: The skeletal structures are osteopenic. No lytic or blastic lesions are seen. Postoperative change is noted in the proximal femora. There are chronic/healed left-sided rib fractures. There are chronic-appearing compression deformities of T8 and T12. IMPRESSION: 1. Significantly suboptimal examination without oral and IV contrast. There is also significant motion artifact. 2. Findings are consistent with a nonspecific pancolitis. Clinical correlation will be required. 3. There is a 1.6 cm rounded focus of inflammation identified in the right lower quadrant adjacent to the cecum. This is of indeterminant etiology and may be related to the patient's colitis. Although the appendix is not visualized, this does not appear to be related to an abnormal appendix. A follow-up CT with oral and IV contrast in 2-3 weeks' time is recommended for reassessment and to exclude underlying soft tissue lesion. 4. Cardiomegaly. 5. Dependent airspace opacities likely represent scarring/atelectasis. Correlate clinically for evidence of an infectious/inflammatory pneumonitis. 6. Cholelithiasis. 7. Additional findings as above. ACT 112: Negative or not required by law. Electronically signed by: Brandan Evans M.D. 10/07/2021 8:02 AM Discharge Plan Visit Data Chief Complaint: Rectal Bleed Stated Complaint: POSS GI BLEED ED Provider: Aly Goss Discharge Problem: RB (rectal bleeding), Leukocytosis, Colitis, Acidosis, lactic Forms Stand Alone Forms: My [facility] [employer] Prescriptions Prescriptions: No Action lisinopril 10 mg tablet 10 mg PO DAILY Qty: 90 RF: 3 metoprolol succinate 25 mg tablet extended release 24 hr 25 mg PO DAILY Qty: 90 RF: 3 atorvastatin 40 mg tablet 80 mg PO DAILY Qty: 180 RF: 11 aspirin [Ecotrin Low Strength] 81 mg Tablet,Delayed Release (Dr/Ec) 81 mg PO QAM Qty: 30 RF: 0 acetaminophen [Mapap (acetaminophen)] 325 mg Tablet 650 mg PO Q4H PRN (Reason: pain) Qty: 60 RF: 0 Lantus Solostar U-100 Insulin 100 unit/mL (3 mL) insulin pen 20 unit SC QPM RF: 0 Referrals Referrals: Ben Paula DO [Primary Care Provider] - Discharge Problem: Leukocytosis Qualifiers: Leukocytosis type: unspecified Qualified Code(s): D72.829 - Elevated white blood cell count, unspecified
[2021-10-07] MEDS ORDERED: SODIUM CHLORIDE 0.9% 1000ML 1,000 ML IV SCH (06:00)
[2021-10-07 06:17] LABS: Basophils # (auto) 0.01 K/uL (0-0.2); Basophils % (auto) 0.1 %; Hematocrit (blood only) 41.9 % (37-47); Immature Granulocytes # (auto) 0.06 K/uL (0.00-0.02); Immature Granulocytes % (auto) 0.3 %; Mean Corpuscular Hemoglobin 28.1 pg (25-34); Mean Corpuscular Volume 90.5 fL (80-100); Mean Platelet Volume 9.8 fL (7.4-10.4); Monocytes # (auto) 0.93 K/uL (0.11-0.59); Monocytes % (auto) 5.4 %; Neutrophils # (auto) 15.06 K/uL (1.4-6.5); Neutrophils % (auto) 87.2 %; Platelet Count 294 K/uL (130-400); RDW Coefficient of Variation 15.5 % (11.5-14.5); RDW Standard Deviation 51.9 fL (36.4-46.3); Red Blood Count 4.63 M/uL (4.2-5.4); White Blood Count 17.26 K/uL (4.8-10.8)
[2021-10-07 06:31] LABS: INR 1.4 (0.9-1.1); Partial Thromboplastin Ratio 1.1; Prothrombin Time 14.1 Seconds (9.0-12.0)
[2021-10-07 06:45] LABS: Albumin Level 3.1 gm/dl (3.4-5.0); BUN Creatinine Ratio 16.5 (10-20); Bilirubin,Total 1.1 mg/dl (0.2-1); Calcium 9.9 mg/dl (8.5-10.1); Creatinine Clr Calc Pharmacy 21.3 ml/min; Est GFR (African American) 29.7 ml/min; Est GFR (Non-African American) 25.6 ml/min; Potassium 3.7 mmol/L (3.5-5.1)
[2021-10-07 07:03] LABS: Albumin Globulin Ratio 0.6 (0.9-2); Globulin 5.1 gm/dl (2.5-4.0); Total Protein 8.2 gm/dl (6.4-8.2); Troponin I 0.152 ng/ml (0-0.045)
[2021-10-07] MEDS ORDERED: CEFEPIME 2,000 MG/20 ML VIAL IV STA (07:57)
[2021-10-07] MEDS ORDERED: VANCOMYCIN CONSULT ACTIVE STA (07:57)
[2021-10-07] MEDS ORDERED: VANCOMYCIN HCL 1,000 MG in SODIUM CHLORIDE 0.9% 500 ML IV ONE (07:57)
[2021-10-07] MEDS ORDERED: SODIUM CHLORIDE 0.9% 1000ML 1,000 ML IV ONE (08:03)
--- NOTE | 2021-10-07 08:03 | CT Scan Report ---
CT SCAN OF THE ABDOMEN AND PELVIS WITHOUT IV CONTRAST CLINICAL HISTORY: Hematochezia. Lower GI bleeding. COMPARISON STUDY: No priors TECHNIQUE: CT scan of the abdomen and pelvis is performed from the lung bases to the proximal femora. Images are reviewed in the axial, sagittal, and coronal planes. IV contrast was not administered for this examination. Note that the examination was performed in significantly suboptimal fashion withou t oral and IV contrast. There is also significant motion artifact. A dose lowering technique was util ized adhering to the principles of ALARA. CT DOSE: 504.36 mGy.cm FINDINGS: Lung bases: The heart is enlarged and without pericardial effusion. The coronary arteries are densely calcified. There is a small hiatal hernia. Dependent airspace opacities are seen at both lung bases. No pleural effusion is identified. Liver: The unenhanced liver is normal in size, contour, and attenuation. There is no intrahepatic roni iary ductal dilatation. Gallbladder: Calcified gallstones are noted with no CT evidence of acute cholecystitis. Spleen: Normal in size and attenuation. Pancreas: The unenhanced pancreas is atrophic and grossly unremarkable. Adrenal glands: Unremarkable. Kidneys: The unenhanced kidneys demonstrate cortical atrophy and are without hydronephrosis. There ar e no renal calculi identified. There is no evidence of contour deforming renal mass lesion. Abdominal vasculature: There is advanced atherosclerotic calcification and mild ectasia of the abdomi nal aorta. Bowel: There is diffuse colonic wall thickening seen from the right colon to the rectum. There is ass ociated pericolonic inflammation and fluid, and the appearance is consistent with a nonspecific panco litis. There is mild colonic diverticulosis without CT evidence of acute diverticulitis. No bowel obs truction is seen. The appendix is nonvisualized. There is a 1.6 cm round focus inflammation identifi ed medial to the cecum seen on image #315. Peritoneum: There is no intraperitoneal free air or abdominal ascites. Lymphadenopathy: None. Pelvic viscera: The bladder is mildly distended but otherwise normal in appearance. The uterus and ad nexa are normal as visualized. Skeletal structures: The skeletal structures are osteopenic. No lytic or blastic lesions are seen. Po stoperative change is noted in the proximal femora. There are chronic/healed left-sided rib fractures . There are chronic-appearing compression deformities of T8 and T12. IMPRESSION: 1. Significantly suboptimal examination without oral and IV contrast. There is also significant motio n artifact. 2. Findings are consistent with a nonspecific pancolitis. Clinical correlation will be required. 3. There is a 1.6 cm rounded focus of inflammation identified in the right lower quadrant adjacent to the cecum. This is of indeterminant etiology and may be related to the patient's colitis. Although t he appendix is not visualized, this does not appear to be related to an abnormal appendix. A follow-u p CT with oral and IV contrast in 2-3 weeks' time is recommended for reassessment and to exclude unde rlying soft tissue lesion. 4. Cardiomegaly. 5. Dependent airspace opacities likely represent scarring/atelectasis. Correlate clinically for evide nce of an infectious/inflammatory pneumonitis. 6. Cholelithiasis. 7. Additional findings as above. ACT 112: Negative or not required by law. Electronically signed by: Brandan Evans M.D. 10/07/2021 8:02 AM
[2021-10-07] MEDS ORDERED: SODIUM CHLORIDE 0.9% 250 ML IV PRN (09:09)
[2021-10-07] MEDS ORDERED: ONDANSETRON INJ 2 MG/ML 2 ML VIAL IV PRN (09:36)
[2021-10-07] MEDS ORDERED: ACETAMINOPHEN 325 MG TAB PO PRN (09:36)
--- NOTE | 2021-10-07 09:36 | XRay Report ---
SINGLE VIEW CHEST CLINICAL HISTORY: Leukocytosis. Colitis. FINDINGS: An AP, portable, upright chest radiograph is compared to study dated 08/17/2021 and correla ankush with chest CT dated 11/05/2018. The examination is degraded by portable technique and patient rota tion. Surgical clips project over the right lower chest wall. The heart is top normal for projection. There are low lung volumes with mild elevation of the right hemidiaphragm. Chronic interstitial thic kening is similar to previous. Scarring/atelectasis is noted at the lung bases. No airspace consolida tion or large pleural effusion is identified. No pneumothorax is seen. The skeletal structures are os teopenic. The bony thorax is grossly intact. IMPRESSION: No acute cardiopulmonary abnormality. ACT 112: Negative or not required by law. Electronically signed by: Brandan Evans M.D. 10/07/2021 9:35 AM
[2021-10-07] MEDS: PANTOprazole 40 MG TAB PO SCH ×2 (11:41→21:51)
[2021-10-07] MEDS: INSULIN GLARGINE SOLOSTAR 100 UNITS/ML 3 ML PEN SC SCH ×2 (11:41→21:51)
[2021-10-07] MEDS ORDERED: FAMOTIDINE 20 MG in SYRINGE 3 ML IV ONE (11:45)
[2021-10-07 13:22] LABS: Hemoglobin 11.6 g/dL (12.0-16.0); Mean Corpuscular Hemoglobin 28.1 pg (25-34); Mean Corpuscular Hgb Conc 31.4 g/dL (32-36); Mean Corpuscular Volume 89.6 fL (80-100); Mean Platelet Volume 9.6 fL (7.4-10.4); Platelet Count 262 K/uL (130-400); RDW Coefficient of Variation 15.5 % (11.5-14.5); RDW Standard Deviation 50.8 fL (36.4-46.3); Red Blood Count 4.13 M/uL (4.2-5.4); White Blood Count 17.94 K/uL (4.8-10.8)
[2021-10-07 13:49] LABS: BUN Creatinine Ratio 22.8 (10-20); Calcium 8.8 mg/dl (8.5-10.1); Creatinine Clr Calc Pharmacy 32.1 ml/min; Est GFR (African American) 48.6 ml/min; Est GFR (Non-African American) 41.9 ml/min; Potassium 4.6 mmol/L (3.5-5.1)
--- NOTE | 2021-10-07 14:00 | History & Physical Report ---
Date of Service October 07, 2021 Assessment & Plan (1) RB (rectal bleeding): Plan: Seems most likely due to the colitissee below. -Hemodynamically a little bit concerning given that she is tachycardicrepeat CBC at noon (late addendum hemoglobin dropped somewhat, but still in the mid 11 range) IV fluids, type and cross 2 units, follow closely -She does have a little bit of epigastric tenderness, while not likely to be an upper GI source, will utilize acid suppression to minimize this risk -Discussed with sonwe agreed that for now it would make the most sense to manage this medically, given that endoscopic intervention is not likely to be needed to stop the bleeding, and then we can discuss further the utility of putting her through an endoscopic work-up in the future to determine route source. Obviously if the bleeding worsens/persist we may need to revisit this (2) Colitis: Plan: -Etiology not entirely clear, I did have some concern about enterohemorrhagic E. colibut given her stability and appearance of the bedside, and especially her lack of thrombocytopenia, it seems less likely to be the case. Fecal bio fire pending, continue empiric gram-negative/anaerobic coverage for nowagain because while suspicion of EHEC is present, its fairly low, and her leukocytosis/overall septic appearance warrants antibiotic coverage given the risk/benefit balance -No clear vectorshe had turkey and ham yesterday, but so did her son. She has not been around other people in the last week. (3) Sepsis: Plan: Appears to be from a colitisalthough it is a little bit difficult to delineate true sepsis versus a large physiologic stress response, but given her overall clinical appearance/exam/colitis/etc.managing as sepsis as above (4) Acute kidney injury: Plan: Seems to be predominantly from dehydration/hypoperfusion more than septic physiology, although certainly there could be elements of both. IV fluids, follow closely, repeat basic metabolic panel at noon) late addendum creatinine was improving to about 1.2) (5) Acidosis, lactic: Plan: Due to all of above (6) Onychomycosis: Plan: Appears to need some local wound care, although no true cellulitis (7) CAD (coronary artery disease): Plan: With mild demand ischemia troponin due to physiologic stress from above. Follow. (8) Diabetes: Plan: Follow sugars, insulin management. (9) Hypertension: Plan: hold home meds for now - lisinopril longer, may be able to resume metoprolol later today depending on hemodynamics (10) DVT prophylaxis: Plan: pharmacologic contraindicated due to GI bleeding, will utilize SCDs Plan: [place] [facility] [place] came from [place] - was only home ~a week prior to admission but son notes she was doing really well during that time - hopefully will be able to return home once above has improved Admission and Anticipated Discharge Date Admission Date: October 07, 2021 History of Present Illness Chief Complaint: Bloody diarrhea Primary Care Provider: Ben Paula DO Patient is a pleasantly demented 81-year-old female accompanied by her son. She had been here in the hospital for hip fracture, went to SNF, had finally been home for about a weekson notes that she was doing quite well. Then last night in the evening she suddenly started saying she was not feeling very well. She vomited a few timesshe noted it kind of looked like Pepsinot really coffee- ground but brown. Then she had some diarrhea with some blood. Afterwards she had many trips to the bathroom feeling like she had to have diarrhea but nothing came out. Afterwards she fell asleep for about 4 hours, she then woke him expressing some distress, at which time she went to the bathroom and had what sounds to have been a fairly large bloody bowel movement, and he checked the trash can by her bed and there was a brown gelatinous type vomit. Because of this, he promptly brought her to the ER for further evaluation. Here she denies any abdominal pain, or any current diarrhea, but her ability to really offer much of anything other than immediate proximal symptoms seems to be quite limited. Allergies Allergy/AdvReac Type Severity Reaction Status Date / Time Penicillins Allergy Unknown Verified 10/07/21 08:39 Home Medications Medication Instructions Recorded Confirmed Type acetaminophen 325 mg tablet (Mapap 650 mg PO Q4H PRN #60 tab 08/10/19 10/07/21 Rx (acetaminophen)) aspirin 81 mg tablet,delayed 81 mg PO QAM #30 tab 08/10/19 10/07/21 Rx release (Ecotrin Low Strength) lisinopril 10 mg tablet 10 mg PO DAILY #90 tab 11/03/20 12/18/21 Rx metoprolol succinate 25 mg 25 mg PO DAILY #90 tab 09/01/20 10/07/21 Rx tablet,extended release 24 hr insulin glargine 100 unit/mL (3 20 unit SC HS 08/17/21 10/07/21 History mL) subcutaneous pen (Lantus Solostar U-100 Insulin) atorvastatin 80 mg tablet 80 mg PO DAILY 10/07/21 10/07/21 History Past Med/Surg History Medical History (Updated 10/07/21 @ 14:08 by Celestino Wilkins DO) Diabetes Hypertension Myocardial infarction Surgical History History of heart artery stent Family History Other Family history non-contributory Social History Smoking Status: Former smoker Tobacco Type: Cigarettes Second Hand Exposure: No; Hx Alcohol Use: No Hx Substance Use: No Preferred Language: Telugu Communication Ability: Effective Melter Loader Required: No Beliefs That Will Affect Care: None marital status: 1 Current Living Situation: Spouse How many Children do You have: 3 Feels Safe at Home: Yes Assistive Devices: Walker Physical Exam Physical Exam: In general she is awake and alert, but seems to be very confused. Pleasant but no distress. HEENT normocephalic atraumatic mucous membranes may be slightly dry. Cardio is tachycardic regular no rubs murmurs gallops. Lungs clear to auscultation bilaterally no rales rhonchi or wheeze with good effort. Abdomen is overall soft, she does have mild epigastric tenderness without guarding rebound or rigidity, she does have lower abdominal tenderness with voluntary guarding, no true rigidity, no rebound. Extremities show no cyanosis clubbing or edema, toenails are thickened and overgrown, the right great toe the toenail is a little bit loose and there is a little bit of dull redness around the foot, nothing that is tender, nothing consistent with cellulitis, it is not warm, there is no exudate. Neuro shows cranial nerves II through XII be grossly intact gross motor and sensory are intact. Mental status is fairly poorthe son provides most of the history. Results & Data Results & Data ([place]) Vital Signs (Past 12 Hours) Vital Signs Temp Pulse Pulse Resp BP BP Pulse Ox 10/07/21 12:21 110 H 18 124/88 97 10/07/21 08:43 115 H 20 116/60 99 10/07/21 08:11 111 H 16 124/88 97 10/07/21 06:16 110 H 18 96 10/07/21 06:04 98.1 F 108 H 18 93/63 L 97 10/07/21 05:58 98.1 F 113 H 18 93/63 L 96 Code Status & VTE Plan VTE Prophylaxis Plan VTE Prophylaxis will be ordered: Yes PG Care Time/CCT Total # of Minutes Spent Total Time Spent with Patient: Total time spent is greater than 50% in coordination of care (as documented) at patient's floor/unit and/or counseling patient: Coding Level of Care Code 61428 Initial Inpt Care Lvl 3 Diagnoses RB (rectal bleeding) K62.5 Colitis K52.9 Sepsis A41.9 Acute kidney injury N17.9 Acidosis, lactic E87.2 Onychomycosis B35.1 CAD (coronary artery disease) I25.10 Diabetes E11.9; Z79.4 Diabetes mellitus type: type 2 Diabetes mellitus 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
[2021-10-07] MEDS: INSULIN ASPART PER UNIT SC SCH ×3 (14:07→21:50)
[2021-10-07 14:25] LABS: Basophils # (auto) 0.01 K/uL (0-0.2); Basophils % (auto) 0.1 %; Immature Granulocytes # (auto) 0.09 K/uL (0.00-0.02); Immature Granulocytes % (auto) 0.5 %; Lymphocytes % (auto) 7.8 %; Monocytes # (auto) 0.86 K/uL (0.11-0.59); Monocytes % (auto) 4.8 %; Neutrophils # (auto) 15.58 K/uL (1.4-6.5); Neutrophils % (auto) 86.8 %
[2021-10-07] MEDS: metroNIDAZOLE 500 MG TAB PO SCH ×2 (15:31→21:51)
[2021-10-07] MEDS: LACTATED RINGER'S 1,000 ML IV SCH (15:31)
[2021-10-07] MEDS ORDERED: cefTRIAXone SODIUM 1000MG/50ML D5W IV ONE (16:13)
[2021-10-07] MEDS: cefTRIAXone SODIUM 1,000 MG in DEXTROSE 5% 50 ML IV SCH (16:51)
[2021-10-07] MEDS: METOPROLOL TARTRATE 25 MG TAB PO SCH (21:51)
[2021-10-08] MEDS: LACTATED RINGER'S 1,000 ML IV SCH ×2 (02:00→17:05)
[2021-10-08 05:12] LABS: Hematocrit (blood only) 32.2 % (37-47); Hemoglobin 10.2 g/dL (12.0-16.0); Immature Granulocytes # (auto) 0.03 K/uL (0.00-0.02); Immature Granulocytes % (auto) 0.2 %; Lymphocytes # (auto) 1.58 K/uL (1.2-3.4); Lymphocytes % (auto) 10.9 %; Mean Corpuscular Hemoglobin 28.3 pg (25-34); Mean Corpuscular Hgb Conc 31.7 g/dL (32-36); Mean Corpuscular Volume 89.2 fL (80-100); Mean Platelet Volume 9.5 fL (7.4-10.4); Monocytes # (auto) 0.98 K/uL (0.11-0.59); Monocytes % (auto) 6.8 %; Neutrophils # (auto) 11.85 K/uL (1.4-6.5); Neutrophils % (auto) 82.1 %; Platelet Count 227 K/uL (130-400); RDW Coefficient of Variation 15.7 % (11.5-14.5); RDW Standard Deviation 51.1 fL (36.4-46.3); Red Blood Count 3.61 M/uL (4.2-5.4); White Blood Count 14.44 K/uL (4.8-10.8)
[2021-10-08 05:46] LABS: BUN Creatinine Ratio 28.7 (10-20); Calcium 8.4 mg/dl (8.5-10.1); Creatinine Clr Calc Pharmacy 46.1 ml/min; Est GFR (African American) 71.4 ml/min; Est GFR (Non-African American) 61.6 ml/min; Potassium 3.9 mmol/L (3.5-5.1)
--- NOTE | 2021-10-08 06:15 | Electrocardiogram Report ---
Test Reason : Blood Pressure : / mmHG Vent. Rate : 108 BPM Atrial Rate : 108 BPM P-R Int : 162 ms QRS Dur : 060 ms QT Int : 334 ms P-R-T Axes : 074 -18 042 degrees QTc Int : 447 ms Poor data quality, interpretation may be adversely affected Sinus tachycardia with Premature supraventricular complexes Minimal voltage criteria for LVH, may be normal variant Borderline ECG When compared with ECG of 17-AUG-2021 15:20, Premature supraventricular complexes are now Present Confirmed by Galen Goodman ([id number]) on 10/08/2021 6:15:17 AM Referred By: ED Confirmed By:Galen Goodman
[2021-10-08 08:00] LABS: Adenovirus F 40/41 PCR Not Detected (NotDetected); Astrovirus PCR Not Detected (NotDetected); Campylobacter PCR Not Detected (NotDetected); Clostridium diff Toxin A/B PCR Not Detected (NotDetected); Cryptosporidium PCR Not Detected (NotDetected); Cyclospora cayetanensis PCR Not Detected (NotDetected); Entamoeba histolytica PCR Not Detected (NotDetected); Enteroaggregative E.coli(EAEC) Not Detected (NotDetected); Enteropathogenic E.coli (EPEC) Not Detected (NotDetected); Enterotoxigenic E.coli (ETEC) Not Detected (NotDetected); Giardia lamblia PCR Not Detected (NotDetected); Norovirus GI/GII PCR Not Detected (NotDetected); Plesiomonas shigelloides PCR Not Detected (NotDetected); Rotavirus A PCR Not Detected (NotDetected); Salmonella PCR Not Detected (NotDetected); Sapovirus PCR Not Detected (NotDetected); Shiga-like Toxin E.coli (STEC) Not Detected (NotDetected); Shigella/Enteroinvasive E.coli Not Detected (NotDetected); Vibrio cholerae PCR Not Detected (NotDetected); Vibrio species PCR Not Detected (NotDetected); Yersinia enterocolitica PCR Not Detected (NotDetected)
[2021-10-08] MEDS: metroNIDAZOLE 500 MG TAB PO SCH ×2 (08:23→14:20)
[2021-10-08] MEDS: PANTOprazole 40 MG TAB PO SCH (08:24)
[2021-10-08] MEDS: METOPROLOL TARTRATE 25 MG TAB PO SCH (08:24)
[2021-10-08] MEDS: INSULIN ASPART PER UNIT SC SCH ×2 (08:47→12:14)
[2021-10-08] MEDS ORDERED: PNEUMOCOCCAL POLYSACCHARIDES 25 MCG/0.5 ML VIAL/SYR IM ONE (09:00)
[2021-10-08] MEDS: INSULIN GLARGINE SOLOSTAR 100 UNITS/ML 3 ML PEN SC SCH (09:08)
--- NOTE | 2021-10-08 16:52 | Discharge Summary ---
Date of Service October 08, 2021 Admission HPI Per Admitting Provider Patient is a pleasantly demented 81-year-old female accompanied by her son. She had been here in the hospital for hip fracture, went to SNF, had finally been home for about a weekson notes that she was doing quite well. Then last night in the evening she suddenly started saying she was not feeling very well. She vomited a few timesshe noted it kind of looked like Pepsinot really coffee- ground but brown. Then she had some diarrhea with some blood. Afterwards she had many trips to the bathroom feeling like she had to have diarrhea but nothing came out. Afterwards she fell asleep for about 4 hours, she then woke him expressing some distress, at which time she went to the bathroom and had what sounds to have been a fairly large bloody bowel movement, and he checked the trash can by her bed and there was a brown gelatinous type vomit. Because of this, he promptly brought her to the ER for further evaluation. Here she denies any abdominal pain, or any current diarrhea, but her ability to really offer much of anything other than immediate proximal symptoms seems to be quite limited. Principal Diagnosis Colitis Discharge Exam In general she is awake and alert pleasant no distress. HEENT normocephalic atraumatic mucous membranes moist. Breathing unlabored no accessory muscle use good effort. Abdomen is soft nondistended nontender no masses no rebound no rigidity. Neuro shows no focal deficits. She is able to eat without any cough choke or throat clearing. No abdominal pain noted after eating. Discharge Data Allergies Allergy/AdvReac Type Severity Reaction Status Date / Time Penicillins Allergy Unknown Verified 10/07/21 08:39 Consultations 10/07/21 08:30 ED Decision to Admit Stat Ordered Studies 10/07/21 05:52 CT abd pelvis wo con Urgent Hospital Course (1) RB (rectal bleeding): Seems most likely due to the colitissee below. -Initially was tachycardic, but fortunately no true hemorrhagic hemodynamics is evolved, patient stabilized nicely, and while her hemoglobin dropped a few point s during her hospital stay, it really settled in more to her recent baselinesuggesting that her initial hemoglobin was quite hemoconcentrated from dehydration. -Discussed with son at point of admission agreed that for now it would make the most sense to manage this medically, given that endoscopic intervention is not likely to be needed to stop the bleeding, and then we can discuss further the ut ility of putting her through an endoscopic work-up in the future to determine route source. She is stable for home, and therefore they can discuss endoscopic work-up as an outpatient with PCP (2) Colitis: -Etiology not entirely clear, I did have some concern about enterohemorrhagic E. colibut given her stability and appearance of the bedside, and especially her lack of thrombocytopenia, it seems less likely to be the case. Fecal bio fire was negative, and her situation never evolved into anything appearing consistent with EHECrather more that of a nonspecific infectious colitis. Improved on antibiotics. Will finish out a course of antibiotics with cefdinir. Outpatient follow-up (3) Sepsis: Appears to be from colitis, and improved. Safe/stable for home. Outpatient labs in follow-up (4) Acute kidney injury: Seems to be predominantly from dehydration/hypoperfusion more than septic physiology, although certainly there could be elements of both. Improved, tolerating p.o. intake, encouraged to keep up with p.o. intake at [facility] have outpatient basic metabolic panel later this week to make sure she is keeping up. (5) Acidosis, lactic: Due to all of above (6) Onychomycosis: Appears to need some local wound care, although no true cellulitishas podiatry appointment tomorrow (7) CAD (coronary artery disease): With mild demand ischemia troponin due to physiologic stress from above. Fortunately troponin never really cuhck beyond a very low level elevation (8) Diabetes: Home on outpatient management (9) Hypertension: Blood pressures stayed in the low range of acceptablestable for home. Will have her hold off on lisinopril for several days, and resume metoprolol tomorrow. Outpatient follow-up (10) DVT prophylaxis: pharmacologic contraindicated due to GI bleeding, utilized SCDs Stable for home, has podiatry appointment tomorrow, ideally PCP later this week, labs (CBC and basic metabolic panel) later this week as well. Total Time Total Time Spent Total Time Spent (In Minutes): Greater than 30 Discharge Plan Discharge Items Patient Disposition: Home - Self-Care Reason For Visit: [facility] BLEED Discharge Diagnosis: infectious colitis Activity: Resume your previous activity Non-emergency contact: Primary Care Provider Call non-emergency contact if: you have any medication questions and your symptoms worsen Follow-up/Referrals: Ben Paula DO [Primary Care Provider] - Diet: Regular Addtl Attending Provider Instructions: colitis/lower GI bleeding -fortunately, while the situation initially looked very concerning for a serious GI bleed, over the last day your blood counts really only dropped back to what has been around your recent baseline - suggesting that the bleeding fortunately did not amount to nearly as much as it looked like -given the abrupt onset, this fits the most with an infectious cause - a lot of these happen without a diagnostic test clearly saying what the culprit was - but fortunately the large majority of people (like yourself) get better -as we discussed yesterday, being thorough on things it would be reasonable to talk about having colonoscopy done - but given your age/etc it would be OK if (after discussion of the risks/benefits) you held off; it would also be quite reasonable to proceed in order to try to rule out any bad causes of bleeding (like polyps, etc) -we'll finish out a course of treatment with an antibiotic - cefdinir - 300mg twice a day for 3 more days -hold off on the aspirin for the next few days just to allow the bleeding to be totally clotted up. as long as you're feeling well, it should be OK to restart the aspirin around 10/11 -with your blood pressure having been low related to the infection, we would recommend that you hold off on your lisinopril for the next few days (restart it around 10/11 as well) Pending Studies at Discharge: No Stand-Alone Forms: My [facility] [employer], Smoking Cessation Medications and DC Order Prescriptions: New cefdinir 300 mg capsule 300 mg PO BID Qty: 6 RF: 0 Continued lisinopril 10 mg tablet 10 mg PO DAILY Qty: 90 RF: 3 metoprolol succinate 25 mg tablet extended release 24 hr 25 mg PO DAILY Qty: 90 RF: 3 aspirin [Ecotrin Low Strength] 81 mg Tablet,Delayed Release (Dr/Ec) 81 mg PO QAM Qty: 30 RF: 0 acetaminophen [Mapap (acetaminophen)] 325 mg Tablet 650 mg PO Q4H PRN (Reason: pain) Qty: 60 RF: 0 Lantus Solostar U-100 Insulin 100 unit/mL (3 mL) insulin pen 20 unit SC HS RF: 0 atorvastatin 80 mg tablet 80 mg PO DAILY RF: 0 Discharge Orders: Discharge Order (Routine); Ordered 10/08/21 Ordered By: Celestino Wilkins Admission Data Admit Date/Time: 10/07/21 09:17 Attending Provider: Celestino Wilkins Admit Provider: Celestino Wilkins Primary Care Provider: Ben Paula Other Providers: Almas Morales Coding Level of Care Code D/C DAY MANAGEMENT >30 MINS Diagnoses RB (rectal bleeding) K62.5 Colitis K52.9 Sepsis A41.9 Acute kidney injury N17.9 Acidosis, lactic E87.2 Onychomycosis B35.1 CAD (coronary artery disease) I25.10 Diabetes E11.9; Z79.4 Diabetes mellitus type: type 2 Diabetes mellitus 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
[2021-10-08] MEDS: cefTRIAXone SODIUM 1,000 MG in DEXTROSE 5% 50 ML IV SCH (17:01)
== END 2021-10-08 17:33 | disposition home or self-care (01) ==
LOC: ED 05:44 → EDINP 09:17 → INTOOBSV 09:17 → EDINP 09:40
DX: K52.9 Noninfective gastroenteritis and colitis, unspecified; I25.10 Atherosclerotic heart disease of native coronary artery without angina pectoris; Z20.822 Contact with and (suspected) exposure to COVID-19; B35.1 Tinea unguium; E87.2 Acidosis; K62.5 Hemorrhage of anus and rectum; N17.9 Acute kidney failure, unspecified; Z79.82 Long term (current) use of aspirin; Z79.4 Long term (current) use of insulin; I25.2 Old myocardial infarction; I10 Essential (primary) hypertension; E11.9 Type 2 diabetes mellitus without complications; Z79.899 Other long term (current) drug therapy; A41.9 Sepsis, unspecified organism